=== PATIENT | female | born 1970 | race Caucasian/White ===

== ENCOUNTER 2016-05-08 20:57 | Emergency (ER) | payer MEDICARE, MEDICAID ==
[2016-05-08] MEDS ORDERED: METOCLOPRAMIDE INJ 10MG/2ML VIAL (J2765) As Ordered ONE (21:45)
[2016-05-08 22:04] LABS: MEAN CORPUSCULAR HEMOGLOBIN 30.7 pg (27.0-33.0); MEAN CORPUSCULAR HGB CONC 33.6 g/dl (32.0-36.5); MEAN CORPUSCULAR VOLUME 91.4 fl (80.0-96.0); RED CELL DISTRIBUTION WIDTH 12.6 % (11.5-14.5)
[2016-05-08 22:25] LABS: ANION GAP 5 MEQ/L (8-16); BLOOD UREA NITROGEN 8 MG/DL (7-18); CALCIUM LEVEL 8.5 MG/DL (8.5-10.1); CARBON DIOXIDE LEVEL 30 MEQ/L (21-32); CHLORIDE LEVEL 109 MEQ/L (98-107); CREATININE FOR GFR 0.73 MG/DL (0.55-1.02); GLOMERULAR FILTRATION RATE > 60.0 (>58); GLUCOSE, FASTING 100 MG/DL (70-105); POTASSIUM SERUM 3.6 MEQ/L (3.5-5.1); SODIUM LEVEL 144 MEQ/L (136-145)
--- NOTE | 2016-05-08 23:00 | REPUSA ---
CT of the head Clinical history: Headache. Technique: Multiple axial CT images were obtained through the head without administration of contrast . Findings: The ventricles and sulci are symmetric bilaterally. There is no evidence of acute hemorrhag e or infarct. There is no midline shift, mass effect, or extra-axial fluid collection. Occipital cran iotomy changes are noted. The other osseous structures are unremarkable. The visualized paranasal sin uses and mastoid air cells are clear. Impression: No acute intracranial abnormality.
--- NOTE | 2016-05-08 23:31 | EDDOCDS ---
Nurse's Notes [facility] Name: Lizette Calderon Age: 45 yrs Sex: Female : 1970 Arrival Date: 05/08/2016 Time: 20:57 Bed 7 Private MD: Diagnosis: Malaise and fatigue;Headache Presentation: 05/08 21:00 Presenting complaint: Presenting complaint: EMS states: Pt to ED by EMS for evaluation mv5 of general illness and MOJ[place], onset today. [facility] 116 by EMS. Pt is photophobic on arrival, has no other distinct complaints. 21:03 Adult Sepsis Screening: The patient does not have new or worsening altered mentation. mv5 Patient's respiratory rate is less than 22. Systolic blood pressure is greater than 100. Patient has a qSOFA score of 0- Negative Sepsis Screen. Suicide/Homicide risk assessment- the patient denies having any suicidal and/or homicidal ideations and does not present with any other emotional, behavioral or mental health complaints. Status: Patient is not a food service tray attendant or dependent. Transition of care: patient was not received from another setting of care. 21:03 Acuity: FRANNIE Level 4 mv5 21:03 Acuity: FRANNIE Level 4 mv5 21:03 Method Of Arrival: Ambulance mv5 Triage Assessment: 21:10 General: Appears uncomfortable, Behavior is cooperative. Pain: Location: occipital area mv5 Pain currently is 3 out of 10 on a pain scale. Pt Declines HIV testing. The patient is triaged at the bedside. See Assessment in Nurses Notes section of ED record. Neurological: Level of Consciousness is awake, alert, Oriented to person, place, time. Cardiovascular: Capillary refill < 3 seconds Heart tones S1 S2 present Pulses are all present. Rhythm is regular. Respiratory: Airway is patent Respiratory effort is even, unlabored, Respiratory pattern is regular, symmetrical, Breath sounds are clear bilaterally. GI: No deficits noted. : No deficits noted. Derm: Skin is pink, warm & dry. GIFTED TEACHER: 21:10 LMP N/A - Post-menopause mv5 Historical: - Allergies: Accuprilracing heart; - Home Meds: 1. Lantus 100 unit/mL Sub-Q crtg twice a day 2. Humalog 100 unit/mL Sub-Q soln four times a day sliding scale - PMHx: Diabetes - IDDM: controlled; Migraine Headaches; Cancer, Brain; - PSHx: tumor resection, brain; - Social history: Smoking status: Patient states was never smoker of tobacco. No barriers to communication noted, The patient speaks fluent [place]. - Family history: Mother has/had hypertension, Father has/had hypertension, Maternal Grandmother has/had cancer. - : The pt / caregiver states he / she is not on anticoagulants. Home medication list is obtained from the patient. - Exposure Risk Screening:: None identified. Screenin:16 Screening information is obtained from the patient. Fall risk: No risks identified. mv5 Assistance ADL's: requires no assistance with activities of daily living. Abuse/DV Screen: The patient / caregiver reports he/she is: not in a situation that causes fear, pain or injury. Nutritional screening: No deficits noted. Advance Directives: There is no active DNR order. home support is adequate. Assessment: 21:15 General: See triage assessment. mv5 21:59 General: Appears uncomfortable, Behavior is cooperative, Pt resting with eyes closed mv5 and head covered to protect from light.. Pain: Location: occipital area Pain currently is 3 out of 10 on a pain scale. Neurological: Level of Consciousness is awake, alert, Oriented to person, place. Cardiovascular:. Respiratory: Airway is patent Respiratory effort is even, unlabored, Respiratory pattern is regular, symmetrical. Derm: Skin is pink, warm & dry. 22:13 General: Patient with complaint that "my sugar feels low". Blood glucose checked and cf2 99. Patient states "that is low for me, I am normally the lowest at 150". PA made aware and patient was given juice . 22:40 General: Appears in no apparent distress, Pt to CT and returned without incident.. mv5 23:21 General: Appears in no apparent distress, comfortable, Behavior is cooperative, Family mv5 at bedside. PARTS IDENTIFICATION TECHNICIAN at bedside to discuss findings. D/C pending.. Pain: Denies pain. Neurological: Level of Consciousness is awake, alert, Oriented to person, place, time. Respiratory: Airway is patent Respiratory effort is even, unlabored, Respiratory pattern is regular, symmetrical. Derm: Skin is pink, warm & dry. Vital Signs: 21:10 BP 149 / 77; Pulse 86; Resp 18; Temp 97.4(T); Pulse Ox 96% on R/A; Weight 89.81 kg (R); [facility] Height 5 ft. 5 in. (165.10 cm) (R); Pain 3/10; 21:59 BP 150 / 83; Pulse 78; Resp 16; Pulse Ox 100% on R/A; mv5 23:22 BP 150 / 76; Pulse 90; Resp 18; Temp 97.9(T); Pulse Ox 98% ; mv5 21:10 Body Mass Index 32.95 (89.81 kg, 165.10 cm) [facility] Vitals: 21:10 Log In Time N/A - ambulance arrival. mv5 ED Course: 20:58 Patient visited by Reanna Foster, Cytogenetic Technician. [facility] 20:58 Sharon Hess,RN is Primary Nurse. [facility] 20:58 Patient moved to 13 [facility] 20:58 Patient moved to 7 [facility] 21:05 Triage Initiated 5 21:12 Pt greeted and oriented to ED. Patient advised of names of staff involved in care, [facility] location of call [place], wait times and NPO status. Patient has correct armband on for positive identification. Placed in gown. Bed in low position. Call light in reach. Side rails up X2. 21:13 Patient visited by Torsten Odom PCA. [facility] 21:16 The patient / caregiver is instructed regarding the plan of care and ED course. mv5 21:24 Spencer Estes FNP is PHCP. ke 21:24 Patient visited by Spencer Estes FNP. ke 21:24 Patient visited by Spencer Estes FNP. ke 21:54 Patient visited by Spencer Estes FNP. ke 21:55 Inserted saline lock: 20 gauge in left antecubital area and blood collected. The mv5 patient tolerated the procedure well. 21:59 -Influenza A&B Rapid Antigen - Nose Sent. mv5 21:59 BMP Sent. mv5 21:59 CBC Sent. mv5 22:27 Patient visited by Spencer Estes FNP. ke 23:03 Patient visited by Spencer Estes FNP. ke 23:05 [facility] Payment Agreement was scanned into [employer] and attached to record. gjb 23:22 CT Head Without Contrast Returned. EDMS 23:29 Discontinued intact, bleeding controlled, pressure dressing applied, No mv5 redness/swelling at site. No procedures done that require assistance. Administered Medications: 21:58 Drug: Metoclopramide 10 mg [metoclopramide 5 mg/mL injection solution] Route: IV; Rate: mv5 40 mg/hr; Infused Over: 15 mins; Site: left antecubital; 21:59 Drug: NS 0.9% 1000 ml [sodium chloride 0.9 % intravenous solution] Route: IV; Rate: mv5 bolus; Site: left antecubital; Order Results: Lab Order: CBC; SPEC'05/08/16 21:43 Test: WHITE BLOOD COUNT; Value: 5.0; Range: 4.0-10.0; Units: K/mm3; Status: F Test: RED BLOOD COUNT; Value: 4.56; Range: 4.00-5.40; Units: M/mm3; Status: F Test: HEMOGLOBIN; Value: 14.0; Range: 12.0-16.0; Units: g/dl; Status: F Test: HEMATOCRIT; Value: 41.7; Range: 36.0-47.0; Units: %; Status: F Test: MEAN CORPUSCULAR VOLUME; Value: 91.4; Range: 80.0-96.0; Units: fl; Status: F Test: MEAN CORPUSCULAR HEMOGLOBIN; Value: 30.7; Range: 27.0-33.0; Units: pg; Status: F Test: MEAN CORPUSCULAR HGB CONC; Value: 33.6; Range: 32.0-36.5; Units: g/dl; Status: F Test: RED CELL DISTRIBUTION WIDTH; Value: 12.6; Range: 11.5-14.5; Units: %; Status: F Test: PLATELET COUNT, AUTOMATED; Value: 238; Range: 150-450; Units: k/mm3; Status: F Lab Order: BMP; SPEC05/08/16 21:43 Test: GLUCOSE, FASTING; Value: 100; Range: 70-105; Units: MG/DL; Status: F Test: BLOOD UREA NITROGEN; Value: 8; Range: 7-18; Units: MG/DL; Status: F Test: CREATININE FOR GFR; Value: 0.73; Range: 0.55-1.02; Units: MG/DL; Status: F Test: GLOMERULAR FILTRATION RATE; Value: > 60.0; Range: >58; Status: F Test: SODIUM LEVEL; Value: 144; Range: 136-145; Units: MEQ/L; Status: F Test: POTASSIUM SERUM; Value: 3.6; Range: 3.5-5.1; Units: MEQ/L; Status: F Test: CHLORIDE LEVEL; Value: 109; Range: 98-107; Abnormal: Above high normal; Units: MEQ/L; Status: F Test: CARBON DIOXIDE LEVEL; Value: 30; Range: 21-32; Units: MEQ/L; Status: F Test: ANION GAP; Value: 5; Range: 8-16; Abnormal: Below low normal; Units: MEQ/L; Status: F Test: CALCIUM LEVEL; Value: 8.5; Range: 8.5-10.1; Units: MG/DL; Status: F Test Note: ; Units are mL/min/1.73 m2 Chronic Kidney Disease Staging per NKF: Stage I & II GFR >=60 Normal to Mildly Decreased Stage III GFR 30-59 Moderately Decreased Stage IV GFR 15-29 Severely Decreased Stage V GFR <15 Very Little GFR Left ESRD GFR <15 on TOURIST INFORMATION ASSISTANT Lab Order: -Influenza A&B Rapid Antigen - Nose; SPEC'M 05/08/16 21:43 Test: INFLUENZA A RAPID SCR by ICA; Value: INFLUENZA A RESULTS NEGATIVE; Status: F Test: INFLUENZA A RAPID SCR by ICA; Value: Comments:; Status: F Test: INFLUENZA B RAPID SCR by ICA; Value: INFLUENZA B RESULTS NEGATIVE; Status: F Test Note: ; The Influenza test is a direct rapid immunoassay for the qualitative detection of Influenza viral antigen. Cell culture (Viral Culture) testing should be considered to confirm NEGATIVE results and to assist in detecting other viruses that can provide similar clinical symptoms. Please contact the lab within 24 hours ([phone]) if confirmatory testing is desired. Lab Order: Fingerstick Blood Sugar; SPEC'M 05/08/16 22:10 Test: BEDSIDE GLUCOSE; Value: 99; Range: 70-105; Units: MG/DL; Status: F Radiology Order: CT Head Without Contrast Test: CT Head Without Contrast REASON FOR EXAMINATION: mojica; ; CT of the head; Clinical history: Headache.; Technique: Multiple axial CT images were obtained through the head without administration of contrast; .; Findings: The ventricles and sulci are symmetric bilaterally. There is no evidence of acute hemorrhag; e or infarct. There is no midline shift, mass effect, or extra-axial fluid collection. Occipital cran; iotomy changes are noted. The other osseous structures are unremarkable. The visualized paranasal sin; uses and mastoid air cells are clear.; Impression: No acute intracranial abnormality.; ; Outcome: 23:23 Discharge ordered by Provider. edward 23:29 Discharge Assessment: Patient awake, alert and oriented x 3. No cognitive and/or mv5 functional deficits noted. Patient verbalized understanding of disposition instructions. patient administered narcotics - no. The following High Risk Discharge criteria are identified: None. Condition: stable. Discharge instructions given to patient, family, Demonstrated understanding of Pt was receptive of discharge instructions/ teaching. CT Study completed. Property sent home with patient. 23:30 Patient left the ED. mv5 Signatures: Dispatcher [employer] EDMS Spencer Estes, GLOBAL ENGINEERING MANAGER GLOBAL ENGINEERING MANAGERReanna Machuca, Cytogenetic Technician Unit Lisa Melton Christina,RN RN cf2 Torsten Odom, BUS ESCORT BUS ESCORT Sharon Iverson,RN RN mv5 Corrections: (The following items were deleted from the chart) 21:05 21:00 Presenting complaint: mv5 mv5 23:22 21:59 Neurological: Level of Consciousness is awake, alert, confused, Oriented to mv5 person, place, mv5 MTDD
--- NOTE | 2016-05-08 23:31 | EDDOCDS ---
Physician Documentation [facility] Name: Lizette Calderon Age: 45 yrs Sex: Female : 1970 Arrival Date: 05/08/2016 Time: 20:57 Bed 7 Private MD: Disposition: 05/08/16 23:23 Discharged to Home/Self Care. Impression: Malaise and fatigue, Headache. - Condition is Stable. - Discharge Instructions: General Headache Without Cause, Weakness, Fatigue. - Medication Reconciliation, Local Pharmacy Hours form. - Follow up: Private Physician; When: 2 - 3 days; Reason: Recheck today's complaints, Continuance of care. - Problem is an acute exacerbation. - Symptoms have improved. Historical: - Allergies: Accuprilracing heart; - Home Meds: 1. Lantus 100 unit/mL Sub-Q crtg twice a day 2. Humalog 100 unit/mL Sub-Q soln four times a day sliding scale - PMHx: Diabetes - IDDM: controlled; Migraine Headaches; Cancer, Brain; - PSHx: tumor resection, brain; - Social history: Smoking status: Patient states was never smoker of tobacco. No barriers to communication noted, The patient speaks fluent [place]. - Family history: Mother has/had hypertension, Father has/had hypertension, Maternal Grandmother has/had cancer. - : The pt / caregiver states he / she is not on anticoagulants. Home medication list is obtained from the patient. - Exposure Risk Screening:: None identified. PROCESS ARCHITECT: 05/08 21:10 LMP N/A - Post-menopause mv5 Vital Signs: 21:10 BP 149 / 77; Pulse 86; Resp 18; Temp 97.4(T); Pulse Ox 96% on R/A; Weight 89.81 kg / jmv 198 lbs (R); Height 5 ft. 5 in. (165.10 cm) (R); Pain 3/10; 21:59 BP 150 / 83; Pulse 78; Resp 16; Pulse Ox 100% on R/A; mv5 23:22 BP 150 / 76; Pulse 90; Resp 18; Temp 97.9(T); Pulse Ox 98% ; mv5 21:10 Body Mass Index 32.95 (89.81 kg, 165.10 cm) jm MDM: 21:29 Obtain sample by nasopharyngeal swab ordered. ke 21:29 IV Saline Lock ordered. ke 21:29 NS 0.9% 1000 ml IV at bolus once ordered. ke 21:29 Metoclopramide 10 mg IV at 40 mg/hr once over 15 mins ordered. ke 21:30 CBC Ordered. EDMS 21:31 BMP Ordered. EDMS 21:31 -Influenza A&B Rapid Antigen - Nose Ordered. EDMS 21:31 CT Head Without Contrast Ordered. EDMS 22:19 Fingerstick Blood Sugar Ordered. EDMS 22:30 BMP Reviewed. ke 22:30 CBC Reviewed. ke 22:30 -Influenza A&B Rapid Antigen - Nose Reviewed. ke 22:30 Fingerstick Blood Sugar Reviewed. ke 23:02 Financial registration complete. richard 23:05 [facility] Payment Agreement was scanned into [employer] and attached to record. richard Administered Medications: 21:58 Drug: Metoclopramide 10 mg [metoclopramide 5 mg/mL injection solution] Route: IV; Rate: mv5 40 mg/hr; Infused Over: 15 mins; Site: left antecubital; 21:59 Drug: NS 0.9% 1000 ml [sodium chloride 0.9 % intravenous solution] Route: IV; Rate: mv5 bolus; Site: left antecubital; Signatures: Dispatcher [employer] Spencer Walker, Lisa Evangelista Megan,RN RN mv5 The chart was reviewed and I authenticate all verbal orders and agree with the evaluation and treatment provided.Attachments: 23:05 [facility] Payment Agreement richard MTDD
--- NOTE | 2016-05-11 00:32 | EDDOCDS ---
Physician Documentation [facility] Name: Lizette Calderon Age: 45 yrs Sex: Female : 1970 Arrival Date: 05/08/2016 Time: 20:57 Bed 7 Private MD: Disposition: 05/08/16 23:23 Discharged to Home/Self Care. Impression: Malaise and fatigue, Headache. - Condition is Stable. - Discharge Instructions: General Headache Without Cause, Weakness, Fatigue. - Medication Reconciliation, Local Pharmacy Hours form. - Follow up: Private Physician; When: 2 - 3 days; Reason: Recheck today's complaints, Continuance of care. - Problem is an acute exacerbation. - Symptoms have improved. Historical: - Allergies: Accuprilracing heart; - Home Meds: 1. Lantus 100 unit/mL Sub-Q crtg twice a day 2. Humalog 100 unit/mL Sub-Q soln four times a day sliding scale - PMHx: Diabetes - IDDM: controlled; Migraine Headaches; Cancer, Brain; - PSHx: tumor resection, brain; - Social history: Smoking status: Patient states was never smoker of tobacco. No barriers to communication noted, The patient speaks fluent Vietnamese. - Family history: Mother has/had hypertension, Father has/had hypertension, Maternal Grandmother has/had cancer. - : The pt / caregiver states he / she is not on anticoagulants. Home medication list is obtained from the patient. - Exposure Risk Screening:: None identified. METER TESTER PRIMARY: 05/08 21:10 LMP N/A - Post-menopause mv5 Vital Signs: 21:10 BP 149 / 77; Pulse 86; Resp 18; Temp 97.4(T); Pulse Ox 96% on R/A; Weight 89.81 kg / jmv 198 lbs (R); Height 5 ft. 5 in. (165.10 cm) (R); Pain 3/10; 21:59 BP 150 / 83; Pulse 78; Resp 16; Pulse Ox 100% on R/A; mv5 23:22 BP 150 / 76; Pulse 90; Resp 18; Temp 97.9(T); Pulse Ox 98% ; mv5 21:10 Body Mass Index 32.95 (89.81 kg, 165.10 cm) jm MDM: 21:29 Obtain sample by nasopharyngeal swab ordered. ke 21:29 IV Saline Lock ordered. ke 21:29 NS 0.9% 1000 ml IV at bolus once ordered. ke 21:29 Metoclopramide 10 mg IV at 40 mg/hr once over 15 mins ordered. ke 21:30 CBC Ordered. EDMS 21:31 BMP Ordered. EDMS 21:31 -Influenza A&B Rapid Antigen - Nose Ordered. EDMS 21:31 CT Head Without Contrast Ordered. EDMS 22:19 Fingerstick Blood Sugar Ordered. EDMS 22:30 BMP Reviewed. ke 22:30 CBC Reviewed. ke 22:30 -Influenza A&B Rapid Antigen - Nose Reviewed. ke 22:30 Fingerstick Blood Sugar Reviewed. ke 23:02 Financial registration complete. banner : [facility] Payment Agreement was scanned into [employer] and attached to record. banner 05/09 10:23 T-Sheet-- Draft Copy was scanned into [employer] and attached to record. gb 16:37 Radiology Report was scanned into [employer] and attached to record. gb 16:37 PCR was scanned into [employer] and attached to record. gb 17:36 PCR was scanned into [employer] and attached to record. gb Administered Medications: 05/08 21:58 Drug: Metoclopramide 10 mg [metoclopramide 5 mg/mL injection solution] Route: IV; Rate: mv5 40 mg/hr; Infused Over: 15 mins; Site: left antecubital; 22:15 Follow up: IV Status: Completed infusion mv5 21:59 Drug: NS 0.9% 1000 ml [sodium chloride 0.9 % intravenous solution] Route: IV; Rate: mv5 bolus; Site: left antecubital; 23:31 Follow up: IV Status: Completed infusion mv5 Signatures: Dispatcher [employer] EDMS Ashtyn Rodney, Spencer Dhillon, NEUROLOGIST Lisa Clark b Sharon Hess,RN RN mv5 The chart was reviewed and I authenticate all verbal orders and agree with the evaluation and treatment provided.Attachments: :05 [facility] Payment Agreement banner 05/09 10:23 T-Sheet-- Draft Copy gb Chart Complete MTDD
--- NOTE | 2016-05-11 00:32 | EDDOCDS ---
Physician Documentation [facility] Name: Lizette Calderon Age: 45 yrs Sex: Female : 1970 Arrival Date: 05/08/2016 Time: 20:57 Bed 7 Private MD: Disposition: 05/08/16 23:23 Discharged to Home/Self Care. Impression: Malaise and fatigue, Headache. - Condition is Stable. - Discharge Instructions: General Headache Without Cause, Weakness, Fatigue. - Medication Reconciliation, Local Pharmacy Hours form. - Follow up: Private Physician; When: 2 - 3 days; Reason: Recheck today's complaints, Continuance of care. - Problem is an acute exacerbation. - Symptoms have improved. Historical: - Allergies: Accuprilracing heart; - Home Meds: 1. Lantus 100 unit/mL Sub-Q crtg twice a day 2. Humalog 100 unit/mL Sub-Q soln four times a day sliding scale - PMHx: Diabetes - IDDM: controlled; Migraine Headaches; Cancer, Brain; - PSHx: tumor resection, brain; - Social history: Smoking status: Patient states was never smoker of tobacco. No barriers to communication noted, The patient speaks fluent [place]ralt[place]. - Family history: Mother has/had hypertension, Father has/had hypertension, Maternal Grandmother has/had cancer. - : The pt / caregiver states he / she is not on anticoagulants. Home medication list is obtained from the patient. - Exposure Risk Screening:: None identified. BLUE LEATHER SORTER: 05/08 21:10 LMP N/A - Post-menopause mv5 Vital Signs: 21:10 BP 149 / 77; Pulse 86; Resp 18; Temp 97.4(T); Pulse Ox 96% on R/A; Weight 89.81 kg / jmv 198 lbs (R); Height 5 ft. 5 in. (165.10 cm) (R); Pain 3/10; 21:59 BP 150 / 83; Pulse 78; Resp 16; Pulse Ox 100% on R/A; mv5 23:22 BP 150 / 76; Pulse 90; Resp 18; Temp 97.9(T); Pulse Ox 98% ; mv5 21:10 Body Mass Index 32.95 (89.81 kg, 165.10 cm) jm MDM: 21:29 Obtain sample by nasopharyngeal swab ordered. ke 21:29 IV Saline Lock ordered. ke 21:29 NS 0.9% 1000 ml IV at bolus once ordered. ke 21:29 Metoclopramide 10 mg IV at 40 mg/hr once over 15 mins ordered. ke 21:30 CBC Ordered. EDMS 21:31 BMP Ordered. EDMS 21:31 -Influenza A&B Rapid Antigen - Nose Ordered. EDMS 21:31 CT Head Without Contrast Ordered. EDMS 22:19 Fingerstick Blood Sugar Ordered. EDMS 22:30 BMP Reviewed. ke 22:30 CBC Reviewed. ke 22:30 -Influenza A&B Rapid Antigen - Nose Reviewed. ke 22:30 Fingerstick Blood Sugar Reviewed. ke 23:02 Financial registration complete. [facility] : [facility] Payment Agreement was scanned into [employer] and attached to record. [facility] 05/09 10:23 T-Sheet-- Draft Copy was scanned into [employer] and attached to record. gb 16:37 Radiology Report was scanned into [employer] and attached to record. gb 16:37 PCR was scanned into [employer] and attached to record. gb 17:36 PCR was scanned into [employer] and attached to record. gb Administered Medications: 05/08 21:58 Drug: Metoclopramide 10 mg [metoclopramide 5 mg/mL injection solution] Route: IV; Rate: mv5 40 mg/hr; Infused Over: 15 mins; Site: left antecubital; 22:15 Follow up: IV Status: Completed infusion mv5 21:59 Drug: NS 0.9% 1000 ml [sodium chloride 0.9 % intravenous solution] Route: IV; Rate: mv5 bolus; Site: left antecubital; 23:31 Follow up: IV Status: Completed infusion mv5 Signatures: Dispatcher [employer] EDMS Ashtyn Rodney, Spencer Dhillon, [employer] Lisa Clark b Sharon Hess,RN RN mv5 The chart was reviewed and I authenticate all verbal orders and agree with the evaluation and treatment provided.Attachments: :05 [facility] Payment Agreement [facility] 05/09 10:23 T-Sheet-- Draft Copy gb Chart Complete MTDD
--- NOTE | 2016-05-11 00:32 | EDDOCDS ---
Nurse's Notes [facility] Name: Lizette Calderon Age: 45 yrs Sex: Female : 1970 Arrival Date: 05/08/2016 Time: 20:57 Bed 7 Private MD: Diagnosis: Malaise and fatigue;Headache Presentation: 05/08 21:00 Presenting complaint: Presenting complaint: EMS states: Pt to ED by EMS for evaluation mv5 of general illness and [place], onset today. [facility] 116 by EMS. Pt is photophobic on arrival, has no other distinct complaints. 21:03 Adult Sepsis Screening: The patient does not have new or worsening altered mentation. mv5 Patient's respiratory rate is less than 22. Systolic blood pressure is greater than 100. Patient has a qSOFA score of 0- Negative Sepsis Screen. Suicide/Homicide risk assessment- the patient denies having any suicidal and/or homicidal ideations and does not present with any other emotional, behavioral or mental health complaints. Status: Patient is not a line service supervisor or dependent. Transition of care: patient was not received from another setting of care. 21:03 Acuity: FRANNIE Level 4 mv5 21:03 Acuity: FRANNIE Level 4 mv5 21:03 Method Of Arrival: Ambulance mv5 Triage Assessment: 21:10 General: Appears uncomfortable, Behavior is cooperative. Pain: Location: occipital area mv5 Pain currently is 3 out of 10 on a pain scale. Pt Declines HIV testing. The patient is triaged at the bedside. See Assessment in Nurses Notes section of ED record. Neurological: Level of Consciousness is awake, alert, Oriented to person, place, time. Cardiovascular: Capillary refill < 3 seconds Heart tones S1 S2 present Pulses are all present. Rhythm is regular. Respiratory: Airway is patent Respiratory effort is even, unlabored, Respiratory pattern is regular, symmetrical, Breath sounds are clear bilaterally. GI: No deficits noted. : No deficits noted. Derm: Skin is pink, warm & dry. 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 Lantus 100 unit/mL Sub-Q crtg twice a day 2. Humalog 100 unit/mL Sub-Q soln four times a day sliding scale - PMHx: Diabetes - IDDM: controlled; Migraine Headaches; Cancer, Brain; - PSHx: tumor resection, brain; - Social history: Smoking status: Patient states was never smoker of tobacco. No barriers to communication noted, The patient speaks fluent Indian. - Family history: Mother has/had hypertension, Father has/had hypertension, Maternal Grandmother has/had cancer. - : The pt / caregiver states he / she is not on anticoagulants. Home medication list is obtained from the patient. - Exposure Risk Screening:: None identified. Screenin:16 Screening information is obtained from the patient. Fall risk: No risks identified. mv5 Assistance ADL's: requires no assistance with activities of daily living. Abuse/DV Screen: The patient / caregiver reports he/she is: not in a situation that causes fear, pain or injury. Nutritional screening: No deficits noted. Advance Directives: There is no active DNR order. home support is adequate. Assessment: 21:15 General: See triage assessment. mv5 21:59 General: Appears uncomfortable, Behavior is cooperative, Pt resting with eyes closed mv5 and head covered to protect from light.. Pain: Location: occipital area Pain currently is 3 out of 10 on a pain scale. Neurological: Level of Consciousness is awake, alert, Oriented to person, place. Cardiovascular:. Respiratory: Airway is patent Respiratory effort is even, unlabored, Respiratory pattern is regular, symmetrical. Derm: Skin is pink, warm & dry. 22:13 General: Patient with complaint that "my sugar feels low". Blood glucose checked and cf2 99. Patient states "that is low for me, I am normally the lowest at 150". PA made aware and patient was given juice . 22:40 General: Appears in no apparent distress, Pt to CT and returned without incident.. mv5 23:21 General: Appears in no apparent distress, comfortable, Behavior is cooperative, Family mv5 at bedside. PRODUCT SPECIALIST at bedside to discuss findings. D/C pending.. Pain: Denies pain. Neurological: Level of Consciousness is awake, alert, Oriented to person, place, time. Respiratory: Airway is patent Respiratory effort is even, unlabored, Respiratory pattern is regular, symmetrical. Derm: Skin is pink, warm & dry. Vital Signs: 21:10 BP 149 / 77; Pulse 86; Resp 18; Temp 97.4(T); Pulse Ox 96% on R/A; Weight 89.81 kg (R); [facility] Height 5 ft. 5 in. (165.10 cm) (R); Pain 3/10; 21:59 BP 150 / 83; Pulse 78; Resp 16; Pulse Ox 100% on R/A; mv5 23:22 BP 150 / 76; Pulse 90; Resp 18; Temp 97.9(T); Pulse Ox 98% ; mv5 21:10 Body Mass Index 32.95 (89.81 kg, 165.10 cm) [facility] Vitals: 21:10 Log In Time N/A - ambulance arrival. mv5 ED Course: 20:58 Patient visited by Reanna Foster, [employer]. [facility] 20:58 Sharon Hess,RN is Primary Nurse. [facility] 20:58 Patient moved to 13 [facility] 20:58 Patient moved to 7 [facility] 21:05 Triage Initiated 5 21:12 Pt greeted and oriented to ED. Patient advised of names of staff involved in care, [facility] location of call [place], wait times and NPO status. Patient has correct armband on for positive identification. Placed in gown. Bed in low position. Call light in reach. Side rails up X2. 21:13 Patient visited by Torsten Odom PCA. [facility] 21:16 The patient / caregiver is instructed regarding the plan of care and ED course. mv5 21:24 Spencer Estes FNP is PHCP. ke 21:24 Patient visited by Spencer Estes FNP. ke 21:24 Patient visited by Spencer Estes FNP. ke 21:54 Patient visited by Spencer Estes FNP. ke 21:55 Inserted saline lock: 20 gauge in left antecubital area and blood collected. The mv5 patient tolerated the procedure well. 21:59 -Influenza A&B Rapid Antigen - Nose Sent. mv5 21:59 BMP Sent. mv5 21:59 CBC Sent. mv5 22:27 Patient visited by Spencer Estes FNP. ke 23:03 Patient visited by Spencer Estes FNP. ke 23:05 [facility] Payment Agreement was scanned into ReviewZAP and attached to record. gjb 23:22 CT Head Without Contrast Returned. EDMS 23:29 Discontinued intact, bleeding controlled, pressure dressing applied, No mv5 redness/swelling at site. No procedures done that require assistance. 05/09 10:23 T-Sheet-- Draft Copy was scanned into ReviewZAP and attached to record. gb 16:37 Radiology Report was scanned into ReviewZ[employer] and attached to record. gb 16:37 PCR was scanned into Review[employer] and attached to record. gb 17:36 PCR was scanned into Review[employer] and attached to record. gb Administered Medications: 05/08 21:58 Drug: Metoclopramide 10 mg [metoclopramide 5 mg/mL injection solution] Route: IV; Rate: mv5 40 mg/hr; Infused Over: 15 mins; Site: left antecubital; 22:15 Follow up: IV Status: Completed infusion mv5 21:59 Drug: NS 0.9% 1000 ml [sodium chloride 0.9 % intravenous solution] Route: IV; Rate: mv5 bolus; Site: left antecubital; 23:31 Follow up: IV Status: Completed infusion mv5 Order Results: Lab Order: CBC; SPEC'M 05/08/16 21:43 Test: WHITE BLOOD COUNT; Value: 5.0; Range: 4.0-10.0; Units: K/mm3; Status: F Test: RED BLOOD COUNT; Value: 4.56; Range: 4.00-5.40; Units: M/mm3; Status: F Test: HEMOGLOBIN; Value: 14.0; Range: 12.0-16.0; Units: g/dl; Status: F Test: HEMATOCRIT; Value: 41.7; Range: 36.0-47.0; Units: %; Status: F Test: MEAN CORPUSCULAR VOLUME; Value: 91.4; Range: 80.0-96.0; Units: fl; Status: F Test: MEAN CORPUSCULAR HEMOGLOBIN; Value: 30.7; Range: 27.0-33.0; Units: pg; Status: F Test: MEAN CORPUSCULAR HGB CONC; Value: 33.6; Range: 32.0-36.5; Units: g/dl; Status: F Test: RED CELL DISTRIBUTION WIDTH; Value: 12.6; Range: 11.5-14.5; Units: %; Status: F Test: PLATELET COUNT, AUTOMATED; Value: 238; Range: 150-450; Units: k/mm3; Status: F Lab Order: BMP; SPEC'M 05/08/16 21:43 Test: GLUCOSE, FASTING; Value: 100; Range: 70-105; Units: MG/DL; Status: F Test: BLOOD UREA NITROGEN; Value: 8; Range: 7-18; Units: MG/DL; Status: F Test: CREATININE FOR GFR; Value: 0.73; Range: 0.55-1.02; Units: MG/DL; Status: F Test: GLOMERULAR FILTRATION RATE; Value: > 60.0; Range: >58; Status: F Test: SODIUM LEVEL; Value: 144; Range: 136-145; Units: MEQ/L; Status: F Test: POTASSIUM SERUM; Value: 3.6; Range: 3.5-5.1; Units: MEQ/L; Status: F Test: CHLORIDE LEVEL; Value: 109; Range: 98-107; Abnormal: Above high normal; Units: MEQ/L; Status: F Test: CARBON DIOXIDE LEVEL; Value: 30; Range: 21-32; Units: MEQ/L; Status: F Test: ANION GAP; Value: 5; Range: 8-16; Abnormal: Below low normal; Units: MEQ/L; Status: F Test: CALCIUM LEVEL; Value: 8.5; Range: 8.5-10.1; Units: MG/DL; Status: F Test Note: ; Units are mL/min/1.73 m2 Chronic Kidney Disease Staging per NKF: Stage I & II GFR >=60 Normal to Mildly Decreased Stage III GFR 30-59 Moderately Decreased Stage IV GFR 15-29 Severely Decreased Stage V GFR <15 Very Little GFR Left ESRD GFR <15 on WELT WHEELER Lab Order: -Influenza A&B Rapid Antigen - Nose; SPEC'M 05/08/16 21:43 Test: INFLUENZA A RAPID SCR by ICA; Value: INFLUENZA A RESULTS NEGATIVE; Status: F Test: INFLUENZA A RAPID SCR by ICA; Value: Comments:; Status: F Test: INFLUENZA B RAPID SCR by ICA; Value: INFLUENZA B RESULTS NEGATIVE; Status: F Test Note: ; The Influenza test is a direct rapid immunoassay for the qualitative detection of Influenza viral antigen. Cell culture (Viral Culture) testing should be considered to confirm NEGATIVE results and to assist in detecting other viruses that can provide similar clinical symptoms. Please contact the lab within 24 hours ([phone]) if confirmatory testing is desired. Lab Order: Fingerstick Blood Sugar; SPEC'M 05/08/16 22:10 Test: BEDSIDE GLUCOSE; Value: 99; Range: 70-105; Units: MG/DL; Status: F Radiology Order: CT Head Without Contrast Test: CT Head Without Contrast REASON FOR EXAMINATION: mojica; ; CT of the head; Clinical history: Headache.; Technique: Multiple axial CT images were obtained through the head without administration of contrast; .; Findings: The ventricles and sulci are symmetric bilaterally. There is no evidence of acute hemorrhag; e or infarct. There is no midline shift, mass effect, or extra-axial fluid collection. Occipital cran; iotomy changes are noted. The other osseous structures are unremarkable. The visualized paranasal sin; uses and mastoid air cells are clear.; Impression: No acute intracranial abnormality.; ; Outcome: 23:23 Discharge ordered by Provider. edward 23:29 Discharge Assessment: Patient awake, alert and oriented x 3. No cognitive and/or mv5 functional deficits noted. Patient verbalized understanding of disposition instructions. patient administered narcotics - no. The following High Risk Discharge criteria are identified: None. Condition: stable. Discharge instructions given to patient, family, Demonstrated understanding of Pt was receptive of discharge instructions/ teaching. CT Study completed. Property sent home with patient. 23:30 Patient left the ED. mv5 Signatures: Dispatcher [employer] EDMS Ashtyn Rodney, Spencer Dhillon, VISUAL EDUCATOR VISUAL EDUCATOR Reanna Hollis, [employer] Lisa Melton Christina,RN RN cf2 Torsten Odom, TOURIST HOME KEEPER TOURIST HOME KEEPER Sharon Iverson,RN RN mv5 Corrections: (The following items were deleted from the chart) 21:05 21:00 Presenting complaint: mv5 mv5 23:22 21:59 Neurological: Level of Consciousness is awake, alert, confused, Oriented to mv5 person, place, mv5 Chart Complete MTDD
== END 2016-05-08 23:30 | disposition home or self-care (01) ==
LOC: M ED 20:57
DX: R53.83 Other fatigue (principal); R51 Headache; E10.9 Type 1 diabetes mellitus without complications; Z85.841 Personal history of malignant neoplasm of brain; Z79.4 Long term (current) use of insulin; Z88.8 Allergy status to other drugs, medicaments and biological substances
CPT/HCPCS: 36415; 70450; 80048; 85027; 87804; 96361; 96365; 99284; J2765

== ENCOUNTER 2018-10-30 18:22 | Emergency (ER) | payer MEDICARE, MEDICAID ==
[~2018-10-30] VITALS: Ht 165.1 cm; Wt 95.5 kg
[2018-10-30] MEDS ORDERED: NS 1,000 ML IV SCH (18:33)
[2018-10-30] MEDS ORDERED: BASA100I (18:39)
[2018-10-30] MEDS ORDERED: NOVOINJ3 (18:39)
[2018-10-30 18:59] LABS: BASO % 0.4 % (0.0-1.0); EOS % 0.2 % (0.0-3.0); HEMATOCRIT 43.1 % (36.0-47.0); LYMPH # 1.1 10^3/uL (1.5-4.5); LYMPH % 21.3 % (24.0-44.0); MEAN CORPUSCULAR HEMOGLOBIN 31.4 pg (27.0-33.0); MEAN CORPUSCULAR HGB CONC 34.8 g/dl (32.0-36.5); MEAN CORPUSCULAR VOLUME 90.2 fl (80.0-96.0); MONO # 0.4 10^3/uL (0.0-0.8); MONO % 8.7 % (0.0-5.0); NEUTROPHILS # 3.5 10^3/uL (1.8-7.7); NEUTROPHILS % 69.2 % (36.0-66.0); PLATELET COUNT, AUTOMATED 174 10^3/uL (150-450); RED BLOOD COUNT 4.78 10^6/uL (4.00-5.40)
[2018-10-30 19:25] LABS: ALBUMIN 3.5 GM/DL (3.2-5.2); ALT/SGPT 55 U/L (12-78); BILIRUBIN,DIRECT 0.1 MG/DL (0.0-0.2); BILIRUBIN,TOTAL 0.5 MG/DL (0.2-1.0); BLOOD UREA NITROGEN 11 MG/DL (7-18); CARBON DIOXIDE LEVEL 28 MEQ/L (21-32); CHLORIDE LEVEL 103 MEQ/L (98-107); CREATININE FOR GFR 0.89 MG/DL (0.55-1.30); GLOMERULAR FILTRATION RATE > 60.0 (>58); GLUCOSE, FASTING 275 MG/DL (70-100); LIPASE 76 U/L (73-393); POTASSIUM SERUM 3.7 MEQ/L (3.5-5.1); SODIUM LEVEL 136 MEQ/L (136-145); TOTAL PROTEIN 7.5 GM/DL (6.4-8.2)
[2018-10-30 21:48] VITALS: BP 158/79
== END 2018-10-30 22:01 | disposition home or self-care (01) ==
LOC: M ED 18:22
DX: R19.7 Diarrhea, unspecified (principal); E11.9 Type 2 diabetes mellitus without complications; Z79.4 Long term (current) use of insulin; Z88.8 Allergy status to other drugs, medicaments and biological substances

== ENCOUNTER 2019-09-18 19:17 | Emergency (ER) | payer MEDICARE, MEDICAID ==
[~2019-09-18 19:17] MED LIST: BASA100I; NOVOINJ3
[2019-09-18] MEDS ORDERED: NS 1,000 ML IV ONE (20:15)
[2019-09-18 20:17] LABS: VENOUS BASE EXCESS -0.6 (-2.0-2.0); VENOUS HCO3 26.6 MEQ/L (23.0-27.0); VENOUS O2 SATURATION 73.1 % (60.0-80.0); VENOUS PARTIAL PRESSURE CO2 54.5 mmHg (38.0-50.0); VENOUS PARTIAL PRESSURE O2 41.8 mmHg (30.0-50.0); VENOUS PH 7.307 UNITS (7.330-7.430); VENOUS STANDARD HCO3 23.4 MEQ/L; VENOUS TOTAL CO2 28.3 MEQ/L (24.0-28.0)
[2019-09-18 20:25] LABS: BASO # 0.1 10^3/uL (0.0-0.2); BASO % 0.7 % (0.0-1.0); EOS % 0.4 % (0.0-3.0); HEMATOCRIT 41.5 % (36.0-47.0); HEMOGLOBIN 13.7 g/dl (12.0-15.5); LYMPH # 1.8 10^3/uL (1.5-5.0); LYMPH % 25.8 % (24.0-44.0); MEAN CORPUSCULAR HEMOGLOBIN 30.1 pg (27.0-33.0); MEAN CORPUSCULAR VOLUME 91.2 fl (80.0-96.0); MONO # 0.5 10^3/uL (0.0-0.8); MONO % 7.3 % (0.0-5.0); NEUTROPHILS # 4.5 10^3/uL (1.5-8.5); NEUTROPHILS % 65.4 % (36.0-66.0); PLATELET COUNT, AUTOMATED 220 10^3/uL (150-450); RED BLOOD COUNT 4.55 10^6/uL (4.00-5.40)
[2019-09-18 20:50] LABS: ACETONE/KETONE 1.47 MG/DL (<2.81); BLOOD UREA NITROGEN 10 MG/DL (7-18); CALCIUM LEVEL 8.5 MG/DL (8.5-10.1); CARBON DIOXIDE LEVEL 28 MEQ/L (21-32); CHLORIDE LEVEL 107 MEQ/L (98-107); CREATININE FOR GFR 0.92 MG/DL (0.55-1.30); GLOMERULAR FILTRATION RATE > 60.0 (>58); GLUCOSE, FASTING 251 MG/DL (70-100); SODIUM LEVEL 137 MEQ/L (136-145)
[2019-09-18 20:54] LABS: OSMOLALITY SERUM 299 MOSM/KG (275-295)
[2019-09-18 22:47] VITALS: BP 142/72
== END 2019-09-18 23:04 | disposition home or self-care (01) ==
LOC: M ED 19:17
DX: I95.1 Orthostatic hypotension (principal); E11.9 Type 2 diabetes mellitus without complications; Z79.4 Long term (current) use of insulin; Z88.8 Allergy status to other drugs, medicaments and biological substances; Z85.841 Personal history of malignant neoplasm of brain

== ENCOUNTER 2020-04-24 13:48 | Emergency (ER) | payer MEDICARE, MEDICAID ==
[~2020-04-24] VITALS: Ht 165.1 cm; Wt 92.7 kg
[2020-04-24] MEDS ORDERED: METO1TAB7 PO (14:10)
[2020-04-24] MEDS ORDERED: ASPI-523 PO (14:10)
[2020-04-24] MEDS ORDERED: ATOR80TA59 PO (14:10)
[2020-04-24] MEDS ORDERED: BRIL90TA PO (14:10)
--- NOTE | 2020-04-24 14:55 | ECGEPIP ---
[facility] - ED Test Date: 2020-04-24 Pat Name: CARON CARCAMO Department: Room: - Gender: Female Civil Attorney: katie : 1970 Requested By: FADY RUCKER Order Number: [id number] Reading MD: Katrin Stephens Measurements Intervals [place] Rate: 87 P: 30 GA: 200 QRS: -1 QRSD: 92 T: 32 QT: 376 QTc: 454 Interpretive Statements SINUS RHYTHM PRWP NSTTW abnormalities No prior Electronically Signed on 04-24-2020 14:55:51 EST by Katrin Stephens
[2020-04-24 15:18] LABS: BASO % 0.6 % (0.0-1.0); EOS % 0.3 % (0.0-3.0); HEMATOCRIT 43.5 % (36.0-47.0); LYMPH # 1.2 10^3/uL (1.5-5.0); LYMPH % 17.2 % (24.0-44.0); MEAN CORPUSCULAR HEMOGLOBIN 30.1 pg (27.0-33.0); MEAN CORPUSCULAR HGB CONC 32.2 g/dl (32.0-36.5); MEAN CORPUSCULAR VOLUME 93.5 fl (80.0-96.0); MONO # 0.5 10^3/uL (0.0-0.8); MONO % 7.3 % (0.0-5.0); NEUTROPHILS % 74.2 % (36.0-66.0); PLATELET COUNT, AUTOMATED 244 10^3/uL (150-450); RED BLOOD COUNT 4.65 10^6/uL (4.00-5.40); WHITE BLOOD COUNT 6.7 10^3/uL (4.0-10.0)
[2020-04-24 15:42] LABS: ALT/SGPT 174 U/L (12-78); BLOOD UREA NITROGEN 12 MG/DL (7-18); CALCIUM LEVEL 9.5 MG/DL (8.5-10.1); CARBON DIOXIDE LEVEL 30 MEQ/L (21-32); CHLORIDE LEVEL 106 MEQ/L (98-107); CK-MB VALUE MASS 1.5 NG/ML (<3.6); CPK CREATINE PHOSPHOKINASE 66 U/L (26-192); CREATININE FOR GFR 0.97 MG/DL (0.55-1.30); GLOMERULAR FILTRATION RATE > 60.0 (>58); GLUCOSE, FASTING 233 MG/DL (70-100); MB/CK RELATIVE INDEX 2.27 (< OR =4); POTASSIUM SERUM 4.2 MEQ/L (3.5-5.1); SODIUM LEVEL 143 MEQ/L (136-145)
[2020-04-24 15:43] LABS: ALBUMIN 3.7 GM/DL (3.2-5.2); BILIRUBIN,DIRECT 0.5 MG/DL (0.0-0.2); LIPASE 132 U/L (73-393); TOTAL PROTEIN 7.6 GM/DL (6.4-8.2); TROPONIN I < 0.02 NG/ML (< 0.10)
--- OUTSIDE RECORDS SUMMARY | 2020-04-24 16:00 | CCD | Continuity of Care Document ---
Author Author Lizette LA MD Organization Unknown Address [address], [address] [place] [address] Phone [phone] Care Team Providers Care Pretzel Packer Name Role Phone Felicity Villarreal MD AUT [phone] Problems Active Problems Provider Date Type 2 diabetes mellitus Arnoldo Boyle MD Onset: 12/26/19 20 Ischemic heart disease Arnoldo Boyle MD Onset: 12/26/2019 Social History Type Date Description Comments Sex Unknown Tobacco Use Start: Unknown Never Smoked Cigarettes ETOH Use Occasionally consumes alcohol Tobacco Use Reviewed: 01/29/20 Patient has never sm oked (pipe, cigarette, cigar) Smoking Status Reviewed: 01/29/20 Patient has never sm oked (pipe, cigarette, cigar) Allergies, Adverse Reactions, Alerts Active Allergies Reaction Severity Comments Date Accupril felt like heart was stopping Severe 01/29/2020 Medications Active Medications SIG Qnty Indications Ordering Provide r Date Basaglar Kwikpen 100 Unit/ML Solution Pen-Inject inject 26 units twice a day Arnoldo guillen MD 01/29/2020 Novolog Flexpen 100U nit/ML Solution Pen-Inject sliding scale Arnoldo Boyle MD 01/29/20 20 Brilinta 90mg Tablets take 1 tablet by mouth two times daily 180tabs Arnoldo Boyle MD 020 [address] 1 by mouth every day 90tabs Arnoldo Boyle MD 01/29/2020 Atorvastatin Calcium 80mg Tablets 1 by mouth every day Arnoldo Boyle MD 01/29/2020 Metoprolol Succinate ER 50mg Tablets ER 24HR 1 by mouth every day 90tabs Arnoldo Boyle MD 1 03/30/2019 History Medications 5 Day 20% Liquid Arnoldo Boyle MD 01/29/2020 - 01/29/2020 Immunizations Description No Information Available Vital Signs Date Vital Result Comment 01/29/2020 3:21pm Height 65 inches 5'5" Weight 206.50 lb BMI (Body Mass Index) 34.4 kg/m2 BP Systolic 136 mmHg LA sitting, manual BP Diastolic 72 mmHg LA sitting, manual Heart Rate 80 /min apical, O2 % BldC Oximetry 98 % room air Results Description No Information Available Procedures Date Code Description Status 01/29/2020 81580 Electrocardiogram Complete Compl eted 12/26/2019 86828 Echocardiography, Tranthoracic R eal-Time Image Documentation Completed 12/26/2019 21507 Electrocardiogram Interpretation & Report Only Completed 12/25/2019 47067 Electrocardiogram Interpretation & Report Only Completed 12/25/2019 91711 Coronary Angiography With Left H eart Catheterization Completed 12/25/[address] ment Of Intracoronary Stent Completed Medical Devices Description No Information Available Encounters Type Date Location Provider Dx Diagnosis Office Visit 01/29/2020 2:45p [facility] Cardiology [facility] Arnoldo calhoun MD R07.9 Chest pain, unspecified I21.3 ST elevation (Stemi) myocard ial infarction of [facility] site Z95.5 Presence of coronary angiopl asty implant and graft Office Visit 12/27/2019 4:11a [facility] Cardiology [facility] Arnoldo Boyle MD I21.3 ST elevation (Stemi) myocardial infarction of [facility] site R07.9 Chest pain, unspecified Z95.5 Presence of coronary angiopl asty implant and graft Office Visit 12/26/2019 3:18a [facility] Cardiology [facility] Arnoldo Boyle MD R07.9 Chest pain, unspecified Z95.5 Presence of coronary angiopl asty implant and graft Office Visit 12/25/2019 3:20a [facility] Cardiology [facility] Arnoldo Boyle MD G80.9 Cerebral palsy, unspecified E11.9 Type 2 diabetes mellitus wit hout complications Assessments Date Code Description Provider 01/29/2020 R07.9 Chest pain, unspecified Arnoldo Boyle MD 01/29/[address] elevation (Stemi) myocardial infarction of unspecified site Arnoldo Boyle MD 01/29/2020 Z95.5 Presence of coronary angioplasty implant and graft Arnoldo Boyle MD 12/27/[address] elevation (Stemi) myocardial infarction of unspecified site Arnoldo Boyle MD 12/27/2019 R07.9 Chest pain, unspecified Arnoldo Boyle MD 12/27/2019 Z95.5 Presence of coronary angioplasty implant and graft Arnoldo Boyle MD 12/26/2019 R07.9 Chest pain, unspecified Arnoldo Boyle MD 12/26/2019 Z95.5 Presence of coronary angioplasty implant and graft Arnoldo Boyle MD 12/26/2019 R07.9 Chest pain, unspecified Rah Milligan MD 12/26/2019 I25.10 Athscl heart disease of [place]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 ang pctrs Rah Milligan MD 12/26/2019 E11.9 Type 2 diabetes mellitus without complications Rah Milligan MD 12/26/2019 Z79.4 garde manger (current) use of insul in Rah Milligan MD 12/26/2019 R07.9 Chest pain, unspecified Kale Doe MD 12/26/2019 I25.10 Athscl heart disease of [place]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 ang pctrs Kale Doe MD 12/26/2019 E11.9 Type 2 diabetes mellitus without complications Kale Doe MD 12/26/2019 Z79.4 half-way (current) use of insul in Kale Doe MD 12/25/2019 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 Rah Milligan MD 12/25/2019 G80.9 Cerebral palsy, unspecified Taz Boyle MD 12/25/2019 E11.9 Type 2 diabetes mellitus without complications Rah Milligan MD 12/25/2019 E11.9 Type 2 diabetes mellitus without complications Arnoldo Boyle MD 12/25/2019 Z79.4 garde manger (current) use of insul in Rah Milligan MD 12/25/2019 R07.9 Chest pain, unspecified Sean La MD 12/25/2019 I25.10 Athscl heart disease of [place]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 ang pctakiko La MD 12/25/2019 E11.9 Type 2 diabetes mellitus without complications Sean La MD 12/25/2019 Z79.4 half-way (current) use of insul in Sean MD Abhinav Plan of Treatment Future Appointment(s):* 08/02/2020 2:30 pm - Arnoldo Boyle MD at [facility] Cardiology AT [place] 01/29/2020 - Arnoldo Boyle MD* R07.9 Chest pain, unspecified * I21.3 ST elevation (Stemi) myocardial infarction of unspecified site * Z95.5 Presence of coronary angioplasty implant and graft Functional Status Description No Information Available Mental Status Description No Information Available Referrals Description No Information Available
--- OUTSIDE RECORDS SUMMARY | 2020-04-24 16:01 | CCD | Continuity of Care Document ---
Author Author Lizette ECKERT MD Organization Unknown Address [address] [place] [address] [place] [address] Phone [phone] Care Team Providers Care Knife Grinder Name Role Phone Felicity Villarreal MD AUT [phone] Problems Active Problems Provider Date Type 2 diabetes mellitus Arnoldo Eckert MD Onset: 12/26/19 20 Ischemic heart disease Arnoldo Eckert MD Onset: 12/26/2019 Social History Type Date [...] 100U nit/ML Solution Pen-Inject sliding scale Arnoldo Eckert MD 01/29/20 20 Brilinta 90mg Tablets take 1 tablet by mouth two times daily 180tabs Arnoldo Eckert MD 020 Aspirin [address] 1 by mouth every day 90tabs Arnoldo Eckert MD 01/29/2020 Atorvastatin Calcium 80mg Tablets 1 by mouth every day Arnoldo Eckert MD 01/29/2020 Metoprolol Succinate ER 50mg Tablets ER 24HR 1 by mouth every day 90tabs Arnoldo Eckert MD 1 03/30/2019 History Medications 5 Day 20% Liquid Arnoldo Eckert MD 01/29/2020 - 01/29/2020 Immunizations Description No [...] Available Procedures Date Code Description Status 01/29/2020 31567 Electrocardiogram Complete Compl eted 12/26/2019 67002 Echocardiography, Tranthoracic R eal-Time Image Documentation Completed 12/26/2019 71842 Electrocardiogram Interpretation & Report Only Completed 12/25/2019 99910 Coronary Angiography With Left H eart Catheterization Completed 12/25/[address] ment Of Intracoronary Stent Completed Medical Devices Description No Information Available Encounters Type Date Location Provider Dx Diagnosis Office Visit 01/29/2020 2:45p [facility] Cardiology [facility] Arnoldo calhoun MD R07.9 Chest pain, unspecified I21.3 ST elevation (Stemi) myocard ial infarction of [facility] site Z95.5 Presence of coronary angiopl asty implant and graft Office Visit 12/27/2019 4:11a [facility] Cardiology [facility] Arnoldo Eckert MD I21.3 ST elevation (Stemi) myocardial infarction of [facility] site R07.9 Chest pain, unspecified Z95.5 Presence of coronary angiopl asty implant and graft Office Visit 12/26/2019 3:18a [facility] Cardiology [facility] Arnoldo Eckert MD R07.9 Chest pain, unspecified Z95.5 Presence of coronary angiopl asty implant and graft Office Visit 12/25/2019 3:20a [facility] Cardiology [facility] Arnoldo Eckert MD G80.9 Cerebral palsy, unspecified E11.9 Type 2 diabetes mellitus wit hout complications Assessments Date Code Description Provider 01/29/2020 R07.9 Chest pain, unspecified Arnoldo Eckert MD 01/29/[address] elevation (Stemi) myocardial infarction of unspecified site Arnoldo Eckert MD 01/29/2020 Z95.5 Presence of coronary angioplasty implant and graft Arnoldo Eckert MD 12/27/[address] elevation (Stemi) myocardial infarction of unspecified site Arnoldo Eckert MD 12/27/2019 R07.9 Chest pain, unspecified Arnoldo Eckert MD 12/27/2019 Z95.5 Presence of coronary angioplasty implant and graft Arnoldo Eckert MD 12/26/2019 R07.9 Chest pain, unspecified Arnoldo Eckert MD 12/26/2019 Z95.5 Presence of coronary angioplasty implant and graft Arnoldo Eckert MD 12/26/2019 R07.9 Chest pain, unspecified Rah Milligan MD 12/26/2019 I25.10 Athscl heart disease of [place]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 ang pctrs Rah Milligan MD 12/26/2019 E11.9 Type 2 diabetes mellitus without complications Rah Milligan MD 12/26/2019 Z79.4 longterm (current) use of insul in Rah Milligan MD 12/26/2019 R07.9 Chest pain, unspecified Kale Doe MD 12/26/2019 I25.10 Athscl heart disease of [place]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 ang pctrs Kale Doe MD 12/26/2019 E11.9 Type 2 diabetes mellitus without complications Kale Doe MD 12/26/2019 Z79.4 longterm (current) use of insul in Kale Doe MD 12/25/2019 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 Rah Milligan MD 12/25/2019 G80.9 Cerebral palsy, unspecified Taz Eckert MD 12/25/2019 E11.9 Type 2 diabetes mellitus without complications Rah Milligan MD 12/25/2019 E11.9 Type 2 diabetes mellitus without complications Arnoldo Eckert MD 12/25/2019 Z79.4 longterm (current) use of insul in Rah Milligan MD Plan of Treatment Future Appointment(s):* 08/02/2020 2:30 pm - Arnoldo Eckert MD at [facility] Cardiology AT [place] 01/29/2020 - Arnoldo Eckert MD* R07.9 Chest pain, unspecified * I21.3 ST elevation (Stemi) myocardial infarction of unspecified site * Z95.5 Presence of coronary angioplasty implant and graft Functional Status Description No Information Available Mental Status Description No Information Available Referrals Description No Information Available
--- OUTSIDE RECORDS SUMMARY | 2020-04-24 16:01 | CCD ---
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 hyperosmolarity Chronic Disease Follow-up with Felicity Godinez MERCHANDISE APPRAISER 11/26/2016 Assess type 2 diabetes mellitus Chronic Disease Follow -up with Felicity Godinez NP 11/26/2016 Headache syndromes Chronic Disease Follow-up with Felicity Godinez MERCHANDISE APPRAISER 11/26/2016 Long-term use of insulin Chronic Disease Follow-up wi th JessicaKayla Godinez MERCHANDISE APPRAISER 11/26/2016 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 Follow-up with Felicity Godinez NP 11/26/2016 Mixed hyperlipoproteinemia Chronic Disease Follow-up w ith JessicaKayla Godinez MERCHANDISE APPRAISER 11/26/2016 Obesity Chronic Disease Follow-up with Felicity Godinez MERCHANDISE APPRAISER 11/26/2016 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 Chronic Disease Follow- up with Felicity Godinez MERCHANDISE APPRAISER 11/26/2016 Assess diabetes mellitus with hyperosmolarity AHR with Felicity Godinez NP 07/16/2016 Assess type 2 diabetes mellitus AHR with Felicity biggs MERCHANDISE APPRAISER 07/16/2016 Long-term use of insulin AHR with Felicity Godinez MERCHANDISE APPRAISER 07/16/2016 Onychomycosis of the left toenails AHR with Felicity Godinez NP 07/16/2016 Visit for: routine adult H&P with abnormal findings AH R with Felicity Godinez MERCHANDISE APPRAISER 07/16/2016 Assess diabetes mellitus with hyperosmolarity Diabetes Follow-up with Felicity Godinez MERCHANDISE APPRAISER 02/06/2016 Assess type 2 diabetes mellitus Diabetes Follow-up wit h Felicity Oscaranagan MERCHANDISE APPRAISER 02/06/2016 Headache syndromes Diabetes Follow-up with Felicity Garza Erin Godinez MERCHANDISE APPRAISER 02/06/2016 Hyperlipidemia Diabetes Follow-up with Felicity Garza Erin Godinez MERCHANDISE APPRAISER 02/06/2016 Long-term use of insulin Diabetes Follow-up with Felicity Garza Mitchell Godinez MERCHANDISE APPRAISER 02/06/2016 Obesity Diabetes Follow-up with Felicity Garza Erin Godinez MERCHANDISE APPRAISER 02/06/2016 Viral gastroenteritis Diabetes Follow-up with Jessicakeyanna Godinez MERCHANDISE APPRAISER 02/06/2016 Mixed hyperlipoproteinemia Problem List Update with Carmen riley Garza Mitchell Godinez MERCHANDISE APPRAISER 10/16/2015 Assess diabetes mellitus with hyperosmolarity Diabetes Follow-up with JessicaKayla Godinez MERCHANDISE APPRAISER 10/03/2015 Assess type 2 diabetes mellitus Diabetes Follow-up wit h Felicity Garza Mitchell Godinez MERCHANDISE APPRAISER 10/03/2015 Diabetes mellitus Diabetes Follow-up with JessicaKayla Godinez MERCHANDISE APPRAISER 10/03/2015 Hyperlipidemia Diabetes Follow-up with Felicity Garza Erin Godinez MERCHANDISE APPRAISER 10/03/2015 Long-term use of insulin Diabetes Follow-up with Felicity Garza Mitchell Godinez MERCHANDISE APPRAISER 10/03/2015 Obesity Diabetes Follow-up with Felicity Garza Eirn Godinez MERCHANDISE APPRAISER 10/03/2015 Assess diabetes mellitus with hyperosmolarity AHR with JessicaKayla Godinez MERCHANDISE APPRAISER 06/27/2015 Assess type 2 diabetes mellitus AHR with JessicaKayla biggs MERCHANDISE APPRAISER 06/27/2015 Diabetes mellitus AHR with JessicaKayla Godinez MERCHANDISE APPRAISER 0 06/27/2015 Disturbance of gait AHR with JessicaKayla Godinez MERCHANDISE APPRAISER 0 06/27/2015 Long-term use of insulin AHR with JessicaKayla Godinez MERCHANDISE APPRAISER 06/27/2015 Refractive diplopia AHR with JessicaKayla Godinez MERCHANDISE APPRAISER 0 06/27/2015 Visit for: routine adult H&P with abnormal findings AH R with Felicity Godinez MERCHANDISE APPRAISER 06/27/2015 Diabetes mellitus Diabetes Follow-up with Felicity Godinez MERCHANDISE APPRAISER 12/20/2014 Obesity Diabetes Follow-up with Felicity Godinez MERCHANDISE APPRAISER 12/20/2014 Viral upper respiratory infection Diabetes Follow-up w ith JessicaKayla Morenogan MERCHANDISE APPRAISER 12/20/2014 Vitamin D deficiency Diabetes Follow-up with Felicity Garza Jose Godinez MERCHANDISE APPRAISER 12/20/2014 Assess medulloblastoma of the cerebellum Diabetes Foll ow-up with Felicity Garza Mitchell Godinez MERCHANDISE APPRAISER 08/23/2014 Diabetes mellitus Diabetes Follow-up with Felicity Garza Erin Godinez MERCHANDISE APPRAISER 08/23/2014 Migraine headache Diabetes Follow-up with Felicity Garza Erin Godinez MERCHANDISE APPRAISER 08/23/2014 Obesity Diabetes Follow-up with Felicity Garza Erin Godinez MERCHANDISE APPRAISER 08/23/2014 Refractive diplopia Diabetes Follow-up with Felicity Garza Erin Godinez MERCHANDISE APPRAISER 08/23/2014 Contact dermatitis AHR with Felicity Garza Mitchell Godinez MERCHANDISE APPRAISER 0 04/13/2014 Diabetes mellitus AHR with Felicity Garza Mitchell Godinez MERCHANDISE APPRAISER 0 04/13/2014 Normal routine history and physical AHR with Felicity Garcia zakia Godinez MERCHANDISE APPRAISER 04/13/2014 Visual disturbances AHR with Felicity Garza Mitchell Godinez MERCHANDISE APPRAISER 0 04/13/2014 Diabetes mellitus Diabetes Follow-up with Felicity Garza Erin Godinez MERCHANDISE APPRAISER 10/27/2013 Obesity Diabetes Follow-up with Felicity Garza Erin Godinez MERCHANDISE APPRAISER 10/27/2013 Visual disturbances Diabetes Follow-up with Felicity Garza Erin Godinez MERCHANDISE APPRAISER 10/27/2013 Vitamin D deficiency Diabetes Follow-up with Felicity Garza Jose Godinez MERCHANDISE APPRAISER 10/27/2013 Foreign body in the foot Advised xray o f R foot to assess for presence of foreign body at distal aspect, between 2nd nad 3rd metarsals. I advised if an object was seen on xray and I could deliniate how large and location of object, I may be willing to take it out. If no object is found on xray, I recommended she give it time to work its way out. 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 Pap with Felicity Garza Mitchell Godinez MERCHANDISE APPRAISER 07/11/2013 Obesity Pap with Felicity Garza Mitchell Godinez MERCHANDISE APPRAISER 0 07/11/2013 Routine gynecological exam with cervical pap smear Pap with Felicity Garza Mitchell Godinez MERCHANDISE APPRAISER 07/11/2013 Diabetes mellitus AHR with Felicity Garza Mitchell Godinez MERCHANDISE APPRAISER 0 04/11/2013 Migraine headache AHR with Felicity Garza Mitchell Godinez MERCHANDISE APPRAISER 0 04/11/2013 Normal routine history and physical AHR with Felicity Garza Jose Godinez MERCHANDISE APPRAISER 04/11/2013 Diabetes mellitus Diabetes Follow-up with Jessicakeyanna Godinez MERCHANDISE APPRAISER 01/05/2013 Medulloblastoma of the cerebellum Diabetes Follow-up w ith JessicaKayla Godinez MERCHANDISE APPRAISER 01/05/2013 Mixed hyperlipoproteinemia Diabetes Follow-up with Meg presley Kayla Godinez MERCHANDISE APPRAISER 01/05/2013 Vitamin D deficiency Diabetes Follow-up with Felicity Garza Jose Godinez MERCHANDISE APPRAISER 01/05/2013 Ward's esophagus Diabetes Follow-up with JessicaKayla Godinez MERCHANDISE APPRAISER 09/15/2012 Benign thyroid neoplasm Diabetes Follow-up with Felicity Garza Isaiah Godinez MERCHANDISE APPRAISER 09/15/2012 Diabetes mellitus Diabetes Follow-up with JessicaKayla Godinez MERCHANDISE APPRAISER 09/15/2012 Medulloblastoma of the cerebellum Diabetes Follow-up w ith Felicity Garza Mitchell Godinez MERCHANDISE APPRAISER 09/15/2012 Migraine headache Diabetes Follow-up with Felicity Garza Erin Godinez MERCHANDISE APPRAISER 09/15/2012 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 Diabetes Follow-up with JessicaKayla Godinez MERCHANDISE APPRAISER 09/15/2012 Obesity Diabetes Follow-up with Jessicakeyanna Godinez MERCHANDISE APPRAISER 09/15/2012 Scabies M Same Day with Le Wilson MERCHANDISE APPRAISER 06/01 Diabetes mellitus 30 minutes with JessicaKayla De Leon an MERCHANDISE APPRAISER 03/10/2012 Hypothyroidism 30 minutes with JessicaKayla De Leon an MERCHANDISE APPRAISER 03/10/2012 Medulloblastoma of the cerebellum 30 minutes with JessicaKayla Godinez MERCHANDISE APPRAISER 03/10/2012 Normal routine history and physical 30 minutes with Carmen lin Kayla Godinez MERCHANDISE APPRAISER 03/10/2012 Vitamin D deficiency 30 minutes with JessicaKayla Moreno kylie MERCHANDISE APPRAISER 03/10/2012 Benign thyroid neoplasm 30 minutes with JessicaKayla Oscar anagan MERCHANDISE APPRAISER 11/20/2011 Diabetes mellitus 30 minutes with JessicaKayla Morenog an MERCHANDISE APPRAISER 11/20/2011 Obesity 30 minutes with JessicaKayla Morenog an MERCHANDISE APPRAISER 11/20/2011 cellulitis lower abdomen M Same Day with Ying I Cornelio MERCHANDISE APPRAISER 10/22/2011 Assessment of throat pain M 20 Minutes with JessicaKayla Godinez NP 08/18/2011 Diabetes mellitus M 20 Minutes with Felicity dorantes MERCHANDISE APPRAISER 08/18/2011 Dysphagia M 20 Minutes with Jessicakeyanna dorantes MERCHANDISE APPRAISER 08/18/2011 Medulloblastoma of the cerebellum M 20 Minutes with Carmen Godinez NP 08/18/2011 Assessment of throat pain 10 Minute Revist with JessicaKayla Godinez MERCHANDISE APPRAISER 01/15/2011 Diabetes mellitus 10 Minute Revist with Felicity Godinez NP 01/15/2011 Globus hystericus 10 Minute Revist with Felicity Godinez NP 01/15/2011 Assessment of throat pain 30 minutes with Felicity Godinez NP 12/11/2010 Medulloblastoma of the cerebellum 30 minutes with Felicity Godinez MERCHANDISE APPRAISER 12/11/2010 Type 2 diabetes mellitus - uncomplicated, uncontrolled 30 minutes with Felicity Godinez MERCHANDISE APPRAISER 12/11/2010 Diabetes mellitus M 20 Minutes with Marli V Ragab DO 04/2010 Diabetic retinopathy M 20 Minutes with Marli V Ragab DO 04/2010 Left rotator cuff sprain (capsule) M 20 Minutes with Marli V Ragab DO 05/28/2010 Acute pharyngitis M Same Day with Alyssa Buckley MERCHANDISE APPRAISER 06/2010 Hypertension M Ov Long 20 with Marli V Ragab DO 09/27 Migraine headache M Ov Long 20 with Marli V Ragab DO 09/27 Obesity M Ov Long 20 with Marli V Ragab DO 09/27 Type II diabetes mellitus M Ov Long 20 with Marli V Ragab D O 10/17/2009 Upper respiratory infection M Ov Long 20 with Marli V Ragab DO 06/19/2009 Viral syndrome --?BPPV M Ov Long 20 with Marli V Ragab DO 06/19/2009 Medulloblastoma of the cerebellum --stable M Ov Long 20 wit h Marli V Ragab DO 05/21/2009 Type II diabetes mellitus - uncomplicated, uncontrolle d M Ov Long 20 with Marli V Ragab DO 05/21/2009 Skin abscess almost completely resolved M Office Visi t - Short with Romy Fontaine MERCHANDISE APPRAISER 04/02/2009 Skin abscess M Short Term Appointment with Romy osullivan NP 03/26/2009 Skin abscess 30 minutes with Romy Fontaine MERCHANDISE APPRAISER 009 Skin abscess 30 minutes with Romy Fontaine MERCHANDISE APPRAISER 009 Pain in limb --right Achilles heel tendon attachment M Office Visit - Short with Marli V Ragab DO 01/23/2009 Type I diabetes mellitus --uncontrolled M Office Visi t - Short with Marli V Ragab DO 01/23/2009 Type II diabetes mellitus - uncomplicated, uncontrolle d M Ov Long 20 with Marli V Ragab DO 06/18/2008 Instructions Instructions not supported for this document typeNo Instructions Recorded Medical Equipment - Implanted Devices Includes: Current and historical DevicesNo Medical Equipment Recorded Medications Includes: Current and historical Medications Current Medications (continue as prescribed) Aspirin 81 MG Oral Tablet Delayed Release 03/07/2020 Provider: Diagnosis: OneTouch Ultra In Vitro Strip 02/19/2020 - 08/17/2020 Provid er: Felicity Godinez MERCHANDISE APPRAISER Diagnosis: Type 2 diabetes caesar itus without complications as directed Use to test BG 4 times a day Brilinta 90 MG Oral Tablet 02/12/2020 Provider: Diagnosis: Metoprolol Succinate 50 MG Oral Capsule ER 24 Hour Sprinkle 12/27/2019 Provider: Diagnosis: Atorvastatin Calcium 80 MG Oral Tablet 12/26/2019 P rovider: Diagnosis: PX Mini Pen Harrison 31G X 5 MM [facility] 11/03/2019 - 05/01/2020 Provider: Diagnosis: Type 2 diab w hypros m w/o nonket hyprgly-hypros coma ([facility]) Use to inject Novolog TID and Basaglar BID OneTouch Ultra STRP 11/03/2019 - 05/01/2020 Provider: Diagnosis: Type 2 diabetes caesar itus without complications Use to test BG 4 times a day OneTouch Delica [facility]ets [facility]G [facility] 11/03/2019 - 05/01/2020 Pro vider: Diagnosis: Oth diab w hyprosm w /o nonket hyprgly-hypros coma ([facility]) Use to test BG QID [employer]PENSE LANCET [employer] Basaglar KwikPen 100 UNIT/ML SC SOPN 11/03/2019 - 05/01/2020 Provider: Diagnosis: Type 2 diabetes caesar itus without complications Inject 26 units BID Basaglar KwikPen 100 UNIT/ML Subcutaneous Solution Pen -injector 11/03/2019 - 05/01/2020 Provider: Felicity Godinez NP Diagnosis: Type 2 diabetes caesar itus without complications twice a day Inject 26 units BID PX Mini Pen Harrison 31G X 5 MM Miscellaneous 11/03/2019 - Provider: Felicity Godinez NP Diagnosis: Type 2 diab w hypros m w/o nonket hyprgly-hypros coma ([facility]) as directed Use to inject Novolog TID and Basaglar BID OneTouch Delica Lancets 33G Miscellaneous 11/03/2019 - 05/01 Provider: Felicity Godinez NP Diagnosis: Oth diab w hyprosm w /o nonket hyprgly-hypros coma ([facility]) four times a day Use to test BG QID DISPENSE LANCET INS [employer] VERS NovoLOG FlexPen 100 UNIT/ML Subcutaneous Solution Pen- injector 07/21/2019 - 07/15/2020 Provider: Felicity Godinez NP Diagnosis: Type 2 diabetes caesar itus without complications as directed Subcutaneously per sliding s tony: 5 Units SM Meal / 10 Units Med Meal / 15 Units Large Meal MDD: 45 Units. Past Medications on file PX Mini Pen Harrison 31G X 5 MM MISC 11/03/2019 - 12/03/2019 Provider: Diagnosis: Type 2 diab w hypros m w/o nonket hyprgly-hypros coma ([facility]) Use to inject Novolog TID and Basaglar BID PX Mini Pen Harrison 31G X 5 MM Miscellaneous 11/03/2019 - Provider: Felicity Godinez NP Diagnosis: Type 2 diab w hypros m w/o nonket hyprgly-hypros coma ([facility]) as directed Use to inject Novolog TID and Basaglar BID OneTouch Ultra In Vitro Strip 11/03/2019 - 02/19/2020 Provid er: Felicity Godinez NP Diagnosis: Type 2 diabetes caesar itus without complications as directed Use to test BG 4 times a day Basaglar KwikPen 100 UNIT/ML Subcutaneous Solution Pen -injector 10/17/2019 - 11/03/2019 Provider: Felicity Godinez NP Diagnosis: Type 2 diabetes caesar itus without complications twice a day twice per day inject 25 units BID titrating up NovoLOG FlexPen 100 UNIT/ML SC SOPN 07/21/2019 - 11/02/2019 Provider: Diagnosis: Type 2 diabetes caesar itus without complications Subcutaneously per sliding scale: 5 Unit s SM Meal / 10 Units Med Meal / 15 Units Large Meal MDD: 45 Units. NovoLOG FlexPen 100 UNIT/ML Subcutaneous Solution Pen- injector 06/29/2019 - 11/02/2019 Provider: Felicity Godinez NP Diagnosis: SUBCUTANEOUSLY PER SLIDING SCALE: 5 UNIT S SM MEAL/10 U MED MEAL/15 U LARGE MEAL MDD: 45 U PX Mini Pen Harrison 31G X 5 MM Miscellaneous 06/05/2019 - Provider: Felicity Godinez NP Diagnosis: Type 2 diab w hypros m w/o nonket hyprgly-hypros coma ([facility]) as directed Use 1 QID Basaglar KwikPen 100 UNIT/ML Subcutaneous Solution Pen -injector 05/02/2019 - 10/17/2019 Provider: Felicity Godinez NP Diagnosis: Type 2 diabetes caesar itus without complications twice a day twice per day inject 25 units BID titrating up OneTouch Ultra Blue STRP 04/25/2019 - 04/25/2019 Provider : Diagnosis: Type 2 diabetes caesar itus without complications Use to test BG 4 times a day OneTouch Ultra Blue In Vitro Strip 04/25/2019 - 11/03/2019 P rovider: Felicity Godinez NP Diagnosis: Type 2 diabetes caesar itus without complications as directed Use to test BG 4 times a day OneTouch Ultra Blue In Vitro Strip 04/20/2019 - 04/25/2019 P rovider: Felicity Godinez NP Diagnosis: Type 2 diabetes caesar itus without complications as directed Use to test BG 5 times a day Amoxicillin 875 MG Oral Tablet 04/13/2019 - 05/02/2019 Provi theodore: Felicity Godinez MERCHANDISE APPRAISER Diagnosis: twice a day one tab po bid PX Mini Pen Harrison 31G X 5 MM Miscellaneous 01/16/2019 - Provider: Felicity Godinez NP Diagnosis: Type 2 diab w hypros m w/o nonket hyprgly-hypros coma ([facility]) as directed Use 1 QID OneTouch Ultra Blue In Vitro Strip 08/17/2018 - 04/20/2019 P rovider: Felicity Godinez NP Diagnosis: Type 2 diabetes caesar itus without complications as directed Use to test BG 5 times a day OneTouch Ultra Blue STRP 08/16/2018 - 04/24/2019 Provider : Diagnosis: Type 2 diabetes caesar itus without complications Use to test BG 5 times a day Basaglar KwikPen 100UNIT/ML Subcutaneous Solution Pen- injector 08/16/2018 - 05/02/2019 Provider: Felicity Godinez NP Diagnosis: Type 2 diabetes caesar itus without complications twice a day twice per day inject 25 units BID titrating up PX Mini Pen Harrison 31G X 5 MM Miscellaneous 08/03/2018 - Provider: Felicity Godinez NP Diagnosis: Type 2 diab w hypros m w/o nonket hyprgly-hypros coma ([facility]) as directed Use 1 QID OneTouch Ultra Blue In Vitro Strip 06/23/2018 - 08/17/2018 P rovider: Felicity Godinez NP Diagnosis: Oth diab w hyprosm w /o nonket hyprgly-hypros coma ([facility]) three times a day Use to test BG TID NovoLOG FlexPen 100UNIT/ML Subcutaneous Solution Pen-i njector 06/07/2018 - 06/29/2019 Provider: Felicity Godinez NP Diagnosis: SUBCUTANEOUSLY PER SLIDING SCALE: 5 UNIT S SM MEAL/10 U MED MEAL/15 U LARGE MEAL MDD: 45 U Basaglar KwikPen 100UNIT/ML Subcutaneous Solution Pen- injector 02/21/2018 - 08/16/2018 Provider: Felicity Godinez NP Diagnosis: Type 2 diabetes caesar itus without complications twice a day twice per day inject 20 units BID PX Mini Pen Harrison 31G X 5 MM Miscellaneous 02/21/2018 - Provider: Felicity Godinez NP Diagnosis: Type 2 diab w hypros m w/o nonket hyprgly-hypros coma ([facility]) as directed Use 1 QID OneTouch Ultra Blue In Vitro Strip 12/13/2017 - 06/23/2018 Jane mclean: Ying Grimes NP Diagnosis: Oth diab w hyprosm w /o nonket hyprgly-hypros coma ([facility]) three times a day Use to test BG TID PX Mini Pen Harrison 31G X 5 MM Miscellaneous 10/04/2017 - Provider: Felicity Godinez NP Diagnosis: Type 2 diab w hypros m w/o nonket hyprgly-hypros coma ([facility]) as directed Use 1 QID Atorvastatin Calcium 10MG Oral Tablet 09/10/2017 - 9 Provider: Felicity Godinez NP Diagnosis: Mixed hyperlipidemia 1 every evening Atorvastatin Calcium 10 MG OR TABS 09/09/2017 - 11/18/2017 P sulaimander: Diagnosis: Mixed hyperlipidemia Atorvastatin Calcium 10MG Oral Tablet 08/18/2017 - 8 Provider: Felicity Godinez NP Diagnosis: 1 every evening Latanoprost 0.005% Ophthalmic Solution 08/13/2017 - 03/03/20 19 Provider: Diagnosis: 1 GTT OUT Q HS Naproxen 500MG Oral Tablet 08/13/2017 - 11/18/2017 Provider: Felicity Godinez NP Diagnosis: twice a day Basaglar KwikPen 100UNIT/ML Subcutaneous Solution Pen- injector 08/13/2017 - 11/18/2017 Provider: Diagnosis: Type 2 diabetes caesar itus without complications twice per day inject 20 units BID Basaglar KwikPen 100UNIT/ML Subcutaneous Solution Pen- injector 07/19/2017 - 02/21/2018 Provider: Felicity Godinez NP Diagnosis: Type 2 diabetes caesar itus without complications twice a day twice per day inject 20 units BID Basaglar KwikPen 100 UNIT/ML SC SOPN 07/15/2017 - 08/13/2017 Provider: Diagnosis: Type 2 diabetes caesar itus without complications twice per day inject 20 units BID OneTouch Ultra Blue In Vitro Strip 06/09/2017 - 12/13/2017 P rovider: Ying Grimes MERCHANDISE APPRAISER Diagnosis: Oth diab w hyprosm w /o nonket hyprgly-hypros coma ([facility]) three times a day Use to test BG TID OneTouch Ultra 2 w/Device KIT 06/09/2017 - 06/10/2017 Provid er: Diagnosis: Type 2 diab w hypros m w/o nonket hyprgly-hypros coma ([facility]) as directed dispense 1 ontough meter per pt insurance OneTouch Ultra 2 w/Device Kit 06/09/2017 - 11/18/2017 Provid er: Ying Grimes MERCHANDISE APPRAISER Diagnosis: Type 2 diab w hypros m w/o nonket hyprgly-hypros coma ([facility]) as directed dispense 1 ontough meter per pt insurance OneTouch Club Lancets Fine Pt Miscellaneous 06/09/2017 - 09/2019 Provider: Ying Grimes MERCHANDISE APPRAISER Diagnosis: Oth diab w hyprosm w /o nonket hyprgly-hypros coma ([facility]) three times a day Use to test BG TID OneTouch Club Lancets Fine Pt MISC 06/08/2017 - 06/10/2017 P rovider: Diagnosis: Oth diab w hyprosm w /o nonket hyprgly-hypros coma ([facility]) Use to test BG TID OneTouch Ultra Blue STRP 06/08/2017 - 06/10/2017 Provider : Diagnosis: Oth diab w hyprosm w /o nonket hyprgly-hypros coma ([facility]) Use to test BG TID OneTouch Ultra 2 w/Device KIT 06/08/2017 - 06/09/2017 Provid er: Diagnosis: Type 2 diab w hypros m w/o nonket hyprgly-hypros coma ([facility]) as directed dispense 1 onetouch meter per pt insurance Eun Contour Next Test In Vitro Strip 06/04/2017 - 06/09/19 18 Provider: Felicity Godinez MERCHANDISE APPRAISER Diagnosis: Type 2 diab w hypros m w/o nonket hyprgly-hypros coma ([facility]) as directed Check BG TID Eun Contour Next Test STRP 06/04/2017 - 06/08/2017 Prov ider: Diagnosis: Type 2 diab w hypros m w/o nonket hyprgly-hypros coma ([facility]) Check BG TID Lantus SoloStar 100 UNIT/ML SC SOPN 06/03/2017 - 06/03/2017 Provider: Diagnosis: Type 2 diabetes caesar itus without complications inject 20 units BID, replacing Levemir was not working Lantus SoloStar 100UNIT/ML Subcutaneous Solution Pen-i njector 06/03/2017 - 07/15/2017 Provider: Felicity Godinez NP Diagnosis: Type 2 diabetes caesar itus without complications twice a day inject 20 units BID, replacing Levemir was not w orking Insulin Syringe 31G X 5/16"1 ML Miscellaneous 05/24/2017 - 0 11/02/2019 Provider: Felicity Godinez NP Diagnosis: Type 2 diabetes caesar itus without complications as directed use with humalog and lantus up to 4 needles per day (DX: E11.9) PX Mini Pen Harrison 31G X 5 MM Miscellaneous 05/12/2017 - Provider: Arias Kendrick MD Diagnosis: Type 2 diab w hypros m w/o nonket hyprgly-hypros coma ([facility]) as directed Use 1 QID Levemir 100UNIT/ML Subcutaneous Solution 04/25/2017 - 2017 Provider: Felicity Godinez NP Diagnosis: Oth diab w hyprosm w /o nonket hyprgly-hypros coma ([facility]) twice a day 20 units SC BID Levemir 100 UNIT/ML SC SOLN 04/22/2017 - 05/12/2017 Provider : Diagnosis: Oth diab w hyprosm w /o nonket hyprgly-hypros coma ([facility]) 20 units SC BID Latanoprost 0.005% Ophthalmic Solution 02/25/2017 - 08/14/19 18 Provider: Diagnosis: 1 GTT OUT Q HS Lantus 100UNIT/ML Subcutaneous Solution 02/25/2017 - 018 Provider: Felicity Godinez NP Diagnosis: as directed 20 units subcutaneous bid NovoLOG FlexPen 100UNIT/ML Subcutaneous Solution Pen-i njector 02/25/2017 - 06/07/2018 Provider: Felicity Godinez NP Diagnosis: SUBCUTANEOUSLY PER SLIDING SCALE: 5 UNIT S SM MEAL/10 U MED MEAL/15 U LARGE MEAL MDD: 45 U Atorvastatin Calcium 10MG Oral Tablet 01/08/2017 - 8 Provider: Felicity Godinez NP Diagnosis: 1 every evening Ciclopirox 8% External Solution 07/16/2016 - 11/18/2017 Prov ider: Felicity Godinez NP Diagnosis: 1 every bedtime APPLY TO NAILS Q HS Lantus 100UNIT/ML Subcutaneous Solution 07/16/2016 - 017 Provider: Felicity Godinez NP Diagnosis: as directed 20 units subcutaneous bid NovoLOG FlexPen 100UNIT/ML Subcutaneous Solution Pen-i njector 07/16/2016 - 02/25/2017 Provider: Felicity Godinez NP Diagnosis: SUBCUTANEOUSLY PER SLIDING SCALE: 5 UNIT S SM MEAL/10 U MED MEAL/15 U LARGE MEAL MDD: 45 U PX Mini Pen Harrison 31G X 5 MM Miscellaneous 07/16/2016 - Provider: Diagnosis: Type 2 diab w hypros m w/o nonket hyprgly-hypros coma ([facility]) Use 1 QID PX Mini Pen Harrison 31G X 5 MM Miscellaneous 06/18/2016 - Provider: Felicity Godinez NP Diagnosis: Type 2 diab w hypros m w/o nonket [facility]gly[facility]hypros [facility] as directed Use 1 QID PX Mini Pen Harrison 31G X 5 MM Miscellaneous 06/18/2016 - Provider: Diagnosis: Type 2 diab w hypros m w/o nonket hyprgly-hypros coma ([facility]) Use 1 QID Insulin Syringe 31G X 5/16" 1 ML Miscellaneous 03/20/2016 - 05/24/2017 Provider: Felicity Godinez NP Diagnosis: Type 2 diabetes caesar itus without complications as directed use with humalog and lantus up to 4 needles per day (DX: E11.9) Lantus 100 UNIT/ML Solution 02/06/2016 - 07/16/2016 Provider : Felicity Godinez NP Diagnosis: as directed 17 units subcutaneous bid Lipitor 10 MG Tablet 10/16/2015 - 07/16/2016 Provider: Felicity Godinez NP Diagnosis: once a day Lantus 100 UNIT/ML Solution 10/03/2015 - 02/06/2016 Provider : Felicity Godinez NP Diagnosis: as directed 30 UNITS Q HS PX Mini Pen [place] 31G X 5 MM [facility] 07/22/2015 - Provider: Felicity oGdinez NP Diagnosis: Type 2 diabetes caesar itus without complications as directed to use with novolog flexpen PX Mini Pen Harrison 31G X 5 MM [facility] 07/22/2015 - 02/06/2016 Provider: Diagnosis: Type 2 diabetes caesar itus without complications to use with novolog flexpen Eun Contour Next Test Strip 07/19/2015 - 06/04/2017 Provid er: Felicity Godinez NP Diagnosis: three times a day CHECK BG TID DX: 250.00 NovoLOG FlexPen 100 UNIT/ML Solution Pen-injector 07/09/2015 - 07/16/2016 Provider: Felicity Godinez NP Diagnosis: SUBCUTANEOUSLY PER SLIDING SCALE: 5 UNIT S SM MEAL/10 U MED MEAL/15 U LARGE MEAL MDD: 45 U HumaLOG 100 UNIT/ML Solution 06/13/2015 - 07/09/2015 Provide r: Felicity Godinez NP Diagnosis: Type 2 diabetes caesar itus without complications as directed 5units- lt meal/ 10 units - med meal / 15 units lg mealMAX dose 45 units/day Insulin Syringe 31G X 5/16" 1 ML [facility] 01/11/2015 - 03/20/2016 Provider: Felicity Godinez NP Diagnosis: Type 2 diabetes caesar itus without complications as directed use with humalog and lantus up to 4 needles per day (DX: E11.9) Insulin Syringe 31G X 5/16" 1 ML [facility] 01/08/2015 - 6 Provider: Diagnosis: Type 2 diabetes caesar itus without complications use with humalog and lantus up to 4 needles per day (DX: E1 1.9) Vitamin D3 2000 UNIT Tablet Chewable 12/20/2014 - 10/03/2015 Provider: Felicity Godinez NP Diagnosis: once a day Eun Contour Next Test Strip 11/26/2014 - 07/19/2015 Provid er: Arias Kendrick MD Diagnosis: Diabetes Mellitus Wi th Unspecified Complication Type Ii or U three times a day CHECK BG TID DX: 250.00 Lantus 100 UNIT/ML Solution 08/31/2014 - 10/03/2015 Provider : Felicity Godinez NP Diagnosis: as directed 40 UNITS QD Eun Contour Next Test Strip 07/20/2014 - 11/26/2014 Provid er: Felicity Godinez NP Diagnosis: Diabetes Mellitus Wi th Unspecified Complication Type Ii or U three times a day CHECK BG TID DX: 250.00 Eun Contour Next Test Strip 07/20/2014 - 07/20/2014 Provid er: Felicity Godinez NP Diagnosis: Diabetes Mellitus Wi th Unspecified Complication Type Ii or U three times a day CHECK BG TID DX: 250.00 HumaLOG 100 UNIT/ML Solution 06/06/2014 - 06/13/2015 Provide r: Felicity Godinez NP Diagnosis: Dm Without Complicat ion Type II or Unspecified Type Not Stat as directed 5units- lt meal/ 10 units - med meal / 15 units lg mealMAX dose 45 units/day Triamcinolone Acetonide 0.5% EX CREA 04/13/2014 - 08/23/2014 Provider: Felicity Godinez NP Diagnosis: apply to affected area two to three times a day as needed Insulin Syringe 31G X 5/16" 1 ML MISC 01/09/2014 - 5 Provider: Felicity Godinez NP Diagnosis: Diabetes Mellitus Wi thout Complication Type Ii or Unspecifie use with humalog and lantus up to 4 needles per day (dx:250. 00) Vitamin D3 1.25 MG (18866 UT) OR CAPS 10/27/2013 - 5 Provider: Felicity Godinez NP Diagnosis: 1 capsule evry month Eun Contour Next Test STRP 10/24/2013 - 07/20/2014 Prov ider: Felicity Godinez NP Diagnosis: Diabetes Mellitus Wi th Unspecified Complication Type Ii or U CHECK BG TID DX: 250.00 Eun Contour Next Test STRP 10/24/2013 - 10/24/2013 Prov ider: Felicity Godinez NP Diagnosis: CHECK BG TID DX: 250.00 HumaLOG 100 UNIT/ML SC SOLN 06/28/2013 - 06/06/2014 Provider : Felicity Godinez NP Diagnosis: Dm Without Complicat ion Type II or Unspecified Type Not Stat 5units- lt meal/ 10 units - med meal / 15 units lg mealMAX d ose 45 units/day Lantus 100 UNIT/ML SC SOLN 06/28/2013 - 08/31/2014 Provider: Felicity Godinez [facility] [employer] Diagnosis: 40 UNITS QD Insulin Syringe 31G X 5/16" 1 ML MISC 06/28/2013 - 4 Provider: Felicity Godinez NP Diagnosis: Diabetes Mellitus Wi thout Complication Type Ii or Unspecifie use with humalog and lantus up to 4 needles per day (dx:250. 00) Eun Contour Next Test STRP 04/28/2013 - 10/24/2013 Prov ider: Felicity Godinez NP Diagnosis: Percocet 7.5-500 MG OR TABS 04/11/2013 - 07/11/2013 Provider : Felicity Godinez NP Diagnosis: 1-2 prn for headaches mdd 2 Calcium Gluconate 500 MG OR TABS 01/05/2013 - 07/11/2013 Pro vider: Felicity Godinez NP Diagnosis: Lipitor 10 MG OR TABS 01/05/2013 - 08/23/2014 Provider: Felicity Godinez NP Diagnosis: Vitamin D3 1.25 MG (41860 UT) OR CAPS 01/05/2013 - 4 Provider: Felicity Godinez [employer] [employer] Diagnosis: 1 CAP PO MONTHLY Insulin Syringe 31G X 5/16" 1 ML MISC 12/20/2012 - 4 Provider: Felicity Godinez NP Diagnosis: Diabetes Mellitus Wi thout Complication Type Ii or Unspecifie use with humalog and lantus up to 4 needles per day (dx:250. 00) HumaLOG 100 UNIT/ML SC SOLN 12/08/2012 - 06/28/2013 Provider : Felicity Godinez [facility] [employer] Diagnosis: Dm Without Complicat ion Type II or Unspecified Type Not Stat UAD per S/S before meals Insulin Syringe 31G X 5/16" 1 ML [facility] 11/07/2012 - 3 Provider: Felicity Godinez NP Diagnosis: Diabetes Mellitus Wi thout Complication Type Ii or Unspecifie use as directed [facility] Omeprazole 20.6 (20 Base) MG OR CPDR 09/15/2012 - 2013 Provider: Diagnosis: 1 qd Lantus 100 UNIT/ML SC SOLN 08/15/2012 - 01/05/2013 Provider: Felicity Godinez NP Diagnosis: 23 UNITS QD Contour Next STRP 06/10/2012 - 04/28/2013 Provider: Felicity Godinez NP Diagnosis: PT MAY TEST UP TO 4 TIMES QD TH Vitamin D3 2000 UNIT OR CAPS 06/10/2012 - 07/11/2013 Prov ider: Felicity Godinez NP Diagnosis: daily Permethrin 5% EX CREA 06/01/2012 - 09/15/2012 Provider: Le Wilson [employer] [employer] Diagnosis: Scabies Apply head to toe avoiding eyes and mout h. Leave on for 10-14 hrs then rinse. Repeat in 2 weeks if symptoms persist HumaLOG 100 UNIT/ML SC SOLN 04/20/2012 - 12/08/2012 Provider : Felicity Godinez NP Diagnosis: Dm Without Complicat ion Type II or Unspecified Type Not Stat UAD per S/S before meals Insulin Syringe 31G X 5/16" 1 ML [facility] 03/16/2012 - 3 Provider: Felicity Godinez NP Diagnosis: Diabetes Mellitus Wi thout Complication Type Ii or Unspecifie use as directed Precision QID Test STRP 03/02/2012 - 07/11/2013 Provider: Felicity Godinez [employer] [employer] Diagnosis: 250.01 HumaLOG 100 UNIT/ML SC SOLN 11/20/2011 - 03/02/2012 Provider : Felicity Godinez NP Diagnosis: Dm Without Complicat ion Type II or Unspecified Type Not Stat UAD per S/S before meals Lantus 100 UNIT/ML SC SOLN 11/20/2011 - 08/15/2012 Provider: Felicity Godinez NP Diagnosis: 23 UNITS QD Percocet 7.5-500 MG OR TABS 11/20/2011 - 01/05/2013 Provider : Diagnosis: 1 QID PRN FOR HEADACHES Bactroban 2% EX OINT 10/22/2011 - 11/20/2011 Provider: Ying Grimes NP Diagnosis: apply to wound abdomen for 1-2 weeks Bactrim DS 800-160 MG OR TABS 10/22/2011 - 11/20/2011 Provid er: Ying Grimes NP Diagnosis: HumaLOG 100 UNIT/ML SC SOLN 08/18/2011 - 11/20/2011 Provider : Felicity Godinez NP Diagnosis: Dm Without Complicat ion Type II or Unspecified Type Not Stat UAD per S/S before meals Lantus 100 UNIT/ML SC SOLN 08/18/2011 - 11/20/2011 Provider: Felicity Godinez NP Diagnosis: 10 UNITS IN JAYELNE. INCREASE 5 UNITS EVERY 5 DAYS UNTIL G OAL. REPLACES HUMULIN N. [employer] [facility] 08/18/2011 - 10/22/2011 Pr ovider: Felicity Godinez NP Diagnosis: USE DIRECTED Insulin Syringe 31G X 5/16" 1 ML MISC 07/10/2011 - 2 Provider: Felicity Godinez NP Diagnosis: Diabetes Mellitus Wi thout Complication Type Ii or Unspecifie use as directedback up being mailed to ra HumuLIN N 100 UNIT/ML SC SUSP 01/23/2011 - 08/20/2011 Provid er: Felicity Godinez NP Diagnosis: Dm Without Complicat ion Type II or Unspecified Type Not Stat 25 units in AM, 30 units in PM Precision QID Test STRP 01/23/2011 - 03/02/2012 Provider: Felicity Godinez NP Diagnosis: 250.01 Daily Value Multivitamin OR TABS 12/11/2010 - 08/18/2011 Pro vider: Diagnosis: HumaLOG 100 UNIT/ML SC SOLN 10/30/2010 - 08/18/2011 Provider : Felicity Godinez NP Diagnosis: Dm Without Complicat ion Type II or Unspecified Type Not Stat UAD per S/S before meals HumuLIN N 100 UNIT/ML SC SUSP 10/30/2010 - 01/15/2011 Provid er: Felicity Godinez NP Diagnosis: Dm Without Complicat ion Type II or Unspecified Type Not Stat 25 units in AM, 30 units in PM HumuLIN N 100 UNIT/ML SC SUSP 07/11/2010 - 10/30/2010 Provid er: Felicity Godinez NP Diagnosis: Dm Without Complicat ion Type II or Unspecified Type Not Stat 25 units in AM, 30 units in PM Insulin Syringe 31G X 5/16" 1 ML MISC 07/03/2010 - 2 Provider: Felicity Godinez NP Diagnosis: Diabetes Mellitus Wi thout Complication Type Ii or Unspecifie use as directedback up being mailed to ra Insulin Syringe 31G X 5/16" 1 ML MISC 07/03/2010 - 1 Provider: Felicity Godinez NP Diagnosis: Diabetes Mellitus Wi thout Complication Type Ii or Unspecifie use as directed HumuLIN N 100 UNIT/ML SC SUSP 07/02/2010 - 07/02/2010 Provid er: Felicity Godinez NP Diagnosis: Dm Without Complicat ion Type II or Unspecified Type Not Stat 25 units in AM, 30 units in PM Misc. Devices MISC 07/02/2010 - 11/20/2011 Provider: Felicity Godinez NP Diagnosis: Insulin Syringes(disposable) U-100 1 ML Misc. Devices MISC 07/02/2010 - 07/02/2010 Provider: Felicity Godinez NP Diagnosis: Insulin Syringes(disposable) U-100 1 ML Penicillin V Potassium 500 MG OR TABS 05/16/2010 - 1 Provider: Felicity Godinez NP Diagnosis: Amoxicillin 875 MG OR TABS 05/02/2010 - 05/28/2010 Provider: Alyssa Buckley NP Diagnosis: Acute Pharyngitis 1 tab po bid X 10 days HumuLIN N 100 UNIT/ML SC SUSP 10/17/2009 - 07/02/2010 Provid er: Marli Tilley DO Diagnosis: Dm Without Complicat ion Type II or Unspecified Type Not Stat 25 units in AM, 30 units in PM Topamax 25 MG OR TABS 10/17/2009 - 08/18/2011 Provider: Marli V Ragab DO Diagnosis: Migraine Unspecified Without Intractable Migraine HumaLOG 100 UNIT/ML SC SOLN 10/17/2009 - 10/30/2010 Provider : Marli Petersonab DO Diagnosis: Dm Without Complicat ion Type II or Unspecified Type Not Stat UAD per S/S before meals Precision QID Test STRP 10/17/2009 - 01/15/2011 Provider: Marli Tilley DO Diagnosis: 250.01 Percocet 7.5-500 MG OR TABS 10/17/2009 - 11/20/2011 Provider : Marli Petersonab DO Diagnosis: 1 po QID PRNMDD-4 Insulin Syringes (Disposable) U-100 1 ML MISC 07/11/2009 - 0 11/20/2011 Provider: Marli Petersonab DO Diagnosis: BACK UP MAILEDDX:250.01 Insulin Syringes (Disposable) U-100 1 ML MISC 07/11/2009 - 0 06/19/2009 Provider: Marli Tilley DO Diagnosis: BACK UP MAILEDDX:250.01 HumuLIN N 100 UNIT/ML SC SUSP 06/13/2009 - 10/17/2009 Provid er: Marli Tilley DO Diagnosis: Dm Without Complicat ion Type II or Unspecified Type Not Stat 25 units in AM30 units in PM Albuterol Sulfate (2.5 MG/3ML) 0.083% IN NEBU 06/10/2009 - 0 10/17/2009 Provider: Felicity Godinez NP Diagnosis: 1 [facility]IAL [facility] MAY USE UP TO QID PRN. Zithromax 250 MG OR TABS 06/10/2009 - 10/17/2009 Provider: Felicity Godinez NP Diagnosis: 2 TABS DAY 1, THEN 1 TAB DAILY DAYS 2 - 5 guaiFENesin 100 MG/5ML OR SOLN 06/10/2009 - 10/17/2009 Provi theodore: Felicity Godinez NP Diagnosis: PLEASE GIVE SUGAR FREE. TAKE 2 - 3 TSP Q 6 HRS PRN. Topamax 25 MG OR TABS 05/21/2009 - 10/17/2009 Provider: Marli Tilley DO Diagnosis: Migraine Unspecified Without Intractable Migraine Bactrim DS 800-160 MG OR TABS 03/19/2009 - 05/21/2009 Provid er: Romy Fontaine [employer] APPRAISER Diagnosis: Keflex 500 MG OR CAPS 03/15/2009 - 03/19/2009 Provider: Romy Fontaine NP Diagnosis: HumuLIN N 100 UNIT/ML SC SUSP 02/18/2009 - 06/13/2009 Provid er: Marli Lili Kristenab DO Diagnosis: Dm Without Complicat ion Type II or Unspecified Type Not Stat 25 units in AM30 units in PM Lisinopril 5 MG OR TABS 01/24/2009 - 10/17/2009 Provider: Marli Petersonab DO Diagnosis: Dm Without Complicat ion Type II or Unspecified Type Not Stat HumaLOG 100 UNIT/ML SC SOLN 01/24/2009 - 10/17/2009 Provider : Marli Petersonab DO Diagnosis: Dm Without Complicat ion Type II or Unspecified Type Not Stat UAD per sliding scale HumuLIN N 100 UNIT/ML SC SUSP 11/16/2008 - 02/18/2009 Provid er: Marli Petersonab DO Diagnosis: Dm Without Complicat ion Type II or Unspecified Type Not Stat 20 units in AM22 units in PM Precision QID Test STRP 11/09/2008 - 10/17/2009 Provider: Marli V Ragab DO Diagnosis: 250.01 Precision QID Test STRP 11/02/2008 - 11/09/2008 Provider: Marli Pearson Ragab DO Diagnosis: 250.01 Insulin Syringes (Disposable) U-100 1 ML MISC 10/17/2008 - 0 06/19/2009 Provider: Marli V Ragab DO Diagnosis: 250.01 Insulin Syringes (Disposable) U-100 1 ML MISC 06/18/2008 - 0 10/17/2008 Provider: Marli V Ragab DO Diagnosis: 250.01 HumuLIN N 100 UNIT/ML SC SUSP 06/18/2008 - 11/16/2008 Provid er: Marli Pearson Ragab DO Diagnosis: Dm Without Complicat ion Type II or Unspecified Type Not Stat 20 units in AM22 units in PM HumaLOG 100 UNIT/ML SC SOLN 06/18/2008 - 01/24/2009 Provider : Marli Pearson Ragab DO Diagnosis: Dm Without Complicat ion Type II or Unspecified Type Not Stat UAD per sliding scale Topamax 50 MG OR TABS 04/05/2008 - 05/21/2009 Provider: Diagnosis: DR RAM HumuLIN N 100 UNIT/ML SC SUSP 12/21/2007 - 06/18/2008 Provid er: Marli Petersonab DRUMMOND Diagnosis: Dm Without Complicat ion Type II or Unspecified Type Not Stat Lisinopril 5 MG OR TABS 12/20/2007 - 01/24/2009 Provider: Marli Tilley DO Diagnosis: Dm Without Complicat ion Type II or Unspecified Type Not Stat HumuLIN N 100 UNIT/ML SC SUSP 12/16/2007 - 12/16/2007 Provid er: Marli Lili Tilley DO Diagnosis: Dm Without Complicat ion Type II or Unspecified Type Not Stat Insulin Syringes (Disposable) U-100 1 ML MISC 12/12/2007 - 0 06/18/2008 Provider: Marli Tilley DO Diagnosis: 250.01 Precision QID Test STRP 11/24/2007 - 11/02/2008 Provider: Marli Tilley DO Diagnosis: 250.01 HumaLOG 100 UNIT/ML SC SOLN 11/24/2007 - 06/18/2008 Provider : Marli Tilley DO Diagnosis: Dm Without Complicat ion Type II or Unspecified Type Not Stat UAD per sliding scale HumuLIN N 100 UNIT/ML SC SUSP 09/09/2007 - 12/16/2007 Provid er: Marli Lili Tilley DO Diagnosis: Dm Without Complicat ion Type II or Unspecified Type Not Stat Percocet 7.5-500 MG OR TABS 08/05/2007 - 10/17/2009 Provider : Diagnosis: 1 po QID PRNMDD-4 Imitrex 50 MG OR TABS 08/05/2007 - 10/17/2009 Provider: Diagnosis: every 2 hours PRNMDD-4 BL Calcium 600 + D 600-200 MG-UNIT OR TABS 08/05/2007 - 09/27 Provider: Diagnosis: Erinc. Devices MISC 06/23/2007 - 05/21/2009 Provider: Arias Kendrick MD Diagnosis: TREAT LT SHOULDER PAIN 3/WK FOR 6 WEEKS 729.5 HumaLOG 100 UNIT/ML SC SOLN 05/10/2007 - 12/20/2007 Provider : Marli Tilley DO Diagnosis: Dm Without Complicat ion Type II or Unspecified Type Not Stat UAD per sliding scale Acetaminophen 325 MG OR TABS 05/09/2007 - 05/21/2009 Provide r: Tyrese Macario MD Diagnosis: Take 1-2 every 4-6 hours as needed for pain/fever Sudafed 30 MG OR TABS 05/09/2007 - 05/21/2009 Provider: Tyrese Macario MD Diagnosis: guaiFENesin 100 MG/5ML OR SOLN 05/09/2007 - 05/21/2009 Provi theodore: Tyrese Macario MD Diagnosis: Please give sugar freel. Take 2-3 tsp every 6 hours as neede d Insulin Syringes (Disposable) U-100 1 ML MISC 05/03/2007 - 0 12/12/2007 Provider: Marli Tilley DO Diagnosis: 250.01 Precision QID Test STRP 05/03/2007 - 12/20/2007 Provider: Marli Tilley DO Diagnosis: 250.01 Lexapro 20 MG OR TABS 04/25/2007 - 11/09/2007 Provider: Marli Tilley DO Diagnosis: Major Depressive Aff ective Disorder Single Episode Unspecifi HumaLOG 100 UNIT/ML SC SOLN 04/25/2007 - 04/25/2007 Provider : Marli Tilley DO Diagnosis: Dm Without Complicat ion Type II or Unspecified Type Not Stat UAD per sliding scale HumuLIN N 100 UNIT/ML SC SUSP 04/25/2007 - 09/09/2007 Provid er: Marli Lili Petersonab DO Diagnosis: Dm Without Complicat ion Type II or Unspecified Type Not Stat NovoLIN N 100 UNIT/ML SC SUSP 04/25/2007 - 04/25/2007 Provid er: Marli V Ragab DO Diagnosis: 17 units q AM / 22 units q PM Misc. Devices MISC 04/13/2007 - 06/23/2007 Provider: Arias Kendrick MD Diagnosis: PT EVAL AND TREAT LT SHOULDER PAIN 3/WK FOR 6 WEEKS 729.5 NovoLIN N 100 UNIT/ML SC SUSP 04/13/2007 - 04/25/2007 Provid er: Marli V Ragab DO Diagnosis: 17 units q AM / 22 units q PM Prempro 0.625-2.5 MG OR TABS 04/13/2007 - 04/25/2007 Provide r: Diagnosis: Misc. Devices KIT 03/04/2007 - 05/21/2009 Provider: Arias Kendrick MD Diagnosis: XRAY ORDER; LEFT SHOULDER NovoLIN N 100 UNIT/ML SC SUSP 02/14/2007 - 04/13/2007 Provid er: Marli V Ragab DO Diagnosis: 17 units q AM / 22 units q PM NovoLIN N 100 UNIT/ML SC SUSP 01/20/2007 - 02/14/2007 Provid er: Marli V Ragab DO Diagnosis: 17 units q AM / 22 units q PM Medications Administered Includes: Administered Medications in patient's chartNo Administered Medications Recorded Vital Signs Includes: Vital Signs from 03/07/2019 through 03/07/2020 Vital Name 03/07/2020 01:43P 11/02/2019 11:52A 04/13/2019 0 8:52A Body Mass Index (kg/m2) 34.0 33.0 32.0 Body Surface Area (m2) 2.00 1.99 1.97 Pain Level 0 0 5 Oxygen Saturation (%) 97 98 95 Flow Rate (l/min) (None (Room Air)) (None (Room Air)) (None ( Room Air)) FiO2 (%) 21 21 21 Blood Pressure Sitting L 122/68 128/80 122/68 BP Cuff Size Large Regular Large Pulse Rate-Sitting (bpm) 83 99 81 Respiration Rate (breaths/min) 18 18 1 6 Temp-Tympanic (F) 97.5 97 97.6 Height (in) 65 65.5 65.5 Weight (lb) 204.6 201.2 195 Results Includes: Results from 03/07/2019 through 03/07/2020 Hgb A1c In-House Labs Ordered by Felicity Godinez NP on 11/02/2019 Specimen Source: Whole blood Collected: 11/02/2019 R eported: 11/02/2019 Hgb A1c 7.0 A (Abnormal) Reviewed on 11/02/2019; All test result s are final unless otherwise noted. History of Present Illness History of Present Illness not supported for this document typeNo History of Present Illness Recorded Social History Description Last Updated No secondhand cigarette smoke exposure 03/07/2020 Smoking status 03/07/2020 : Never smoker 03/07/2020 Current nonsmoker 08/13/2017 Current smoker 08/13/2017 Activities of daily living 07/16/2016 Alcohol use (female) greater than 3 drinks per occasi on / 7 per week 07/16/2016 control method not specified 07/16/2016 Caffeine use 07/16/2016 Child custody status 07/16/2016 Educational level some college 07/16/2016 Exercise frequency 07/16/2016 No domestic violence 07/16/2016 Not using drugs 07/16/2016 Sexually active 07/16/2016 Educational level: grade 07/11/2013 In grade 7-12 07/11/2013 Daily cola consumption 04/11/2013 Has high school diploma 04/11/2013 No physical disability 04/11/2013 Good exercise habits 04/25/2007 Procedures and Surgical/Medical History Includes: Procedures from 03/07/2019 through 03/07/2020 Procedures CPT-4 Diagnosis Performing Provider Service Location Service Date Influenza virus vaccine, preservative free, 6 months and up [id number] Encounter for immunization Felicity Godinez NP 03/07/2020 [facility] -Subsequent Annual Wellness Visit [id number] En cntr for general adult medical exam w/o abnormal findings, Type 2 diabetes mellitus without complications, Mixed hyperlipidemia, Obesity, unspecified Felicity Godinez [facility] 11/02/2019 Medical History Last Updated Premature cardiovascular disease was 2.0 ASCVD 10 Yea r Risk 10/16/2015 Fundoscopic exam through dilated pupils was performed 11/06/2014 NO DIABETIC RETINOPATHY 01/25/2015 1 1 04/13/2014 Patient screening 04/13/2014 Offered for HIV - Refused 04/13/2014 Para 1 07/11/2013 A mammogram was performed 04/11/2013 Standardized depression screening: negative for sympto ms 04/11/2013 brain tumor removed 200001/05/2013 No history of coronary artery disease 01/05/2013 No history of essential hypertension 01/05/2013 No history of hyperlipidemia 01/05/2013 Past medical history Please see Problem List for Acti ve Chronic Problems 09/15/2012 No history of atherosclerosis of extremities 8 No history of congestive heart failure 04/25/2007 No history of prior myocardial infarction 04/25/2007 Taking diabetic medication 04/13/2007 Family History Includes: Family History in patient's chart Description Last Updated Family history of asthma mother 07/16/2016 Family history of cancer materal grandmother colon ca ncer 07/16/2016 Family history of diabetes mellitus father 07/16/2016 Family history of hypertension both mom an father Maternal history of depression mother 07/16/2016 Paternal history of depression 07/16/2016 Paternal history of not using drugs 07/16/2016 Family history of type 2 diabetes mellitus 12/20/2014 Maternal history of not using drugs 12/20/2014 Family history of depression 07/11/2013 Family history of heart disease 07/11/2013 Family history of not using drugs 04/11/2013 Family history of colon cancer in first degree relative before age 60 grandmother 01/05/2013 No family history of depression 01/05/2013 No family history of early deaths 01/05/2013 Family history unchanged 03/15/2009 Family in good health 04/25/2007 Review of Systems Review of Systems not supported for this document typeNo Review of Systems Recorded Mental Status Mental Status not supported for this document type Description Oriented to time, place, and person Thought processes were not impaired The thought content revealed no impairme nt Functional Status Functional Status not supported for this document typeNo Functional Status Recorded Physical Exam Physical Exam not supported for this document typeNo Physical Exam Recorded Immunizations Includes: Immunizations in patient's chart Vaccine Dose # Date Site Reaction(s) Status Source Boostrix 1 08/16/2018 Left Deltoid Complete (Administered) [facility] Influenza 1 12/20/2007 Left Arm Complete (Administered) [facility] Influenza 2 01/23/2009 Right Arm Complete (Administered) [facility] Influenza 3 12/11/2010 Left Arm Complete (Administered) [facility] Influenza 4 03/10/2012 Upper Left Arm Complete (Administer ed) [facility] Influenza 5 01/05/2013 Left Arm Complete (Administered) [facility] Influenza, seasonal, injectable 1 03/03/2019 Right Deltoid Complete (Administered) [facility] Note: pt knows to call with any complications no matter time of day Influenza, seasonal, injectable 2 03/07/2020 Upper Left Arm Complete (Administered) [facility] Allergies Includes: Active, inactive, and resolved Allergies Substance Type Reaction Effective Status Seafood Allergy FEELS LIKE THROAT CLOSES OFF 07/16/2016 Active Accupril 10 MG Oral Tablet Allergy heart felt like it stopped 04/13/2007 Active Encounters Includes: Encounters from 03/07/2019 through 03/07/2020 Encounter Provider Location Date Diagnosis Diabetes Follow-up Felicity Godinez [facility] Hypertension (systemic), Obesity, Hyperlipidemia, Diabetes Mellitus, Acute Myocardial Infarction Non-st Elevation [facility] Felicity Godinez [facility] 11/02/19 20 Visit For: Routine Adult H&p Without Abnormal Findings, Diabetes Mellitus, Hyperlipoproteinemia Mixed, Obesity Walk-In Felicity Oscaranagan [facility] 04/13/19 20 Lower Respiratory Tract Infection Acute, Sinusitis Acute, Diabetes Mellitus Insurance Includes: Active Insurance Policies Plan Name Member ID Group # Subscriber Relationship Effective Da jordon 1 - [employer] [id number] Lizette Calderon Self 03/29 - Unknown 2 - [employer] [id number] Lizette mercado Self 03/04/2007 - Unknown Advance Directives Includes: Current Advance Directives Directive Pat Aware Third Green Party Effective Date Reviewed Status RHIO Yes 11/20/2011 Current and Ve rified Note: 11/20/11 packet given Pt Bill of Rights, Priv Prac, Ad Dir Yes 11/02/2019 Current and Verified Note: Pt declined AD packet Ebola Screening Performed Yes 11/02/2019 Current and Verified Note: Within the last month, have you traveled outside of the [place]? - NO Health Concerns Includes: Active Health ConcernsNo Active Health Concerns Recorded Goals Includes: Active GoalsNo Active Goals Recorded Interventions Includes: Interventions for active GoalsNo Interventions Recorded Evaluations & Outcomes Includes: Evaluations & Outcomes for active GoalsNo Outcomes Recorded
--- OUTSIDE RECORDS SUMMARY | 2020-04-24 16:01 | CCD | Continuity of Care Document ---
Author Author Lizette ECKERT MD Organization Unknown Address [address] [place] [address] [place] [id number] Phone [phone] Care Team Providers Care Basket Filler Name Role Phone Felicity Villarreal MD [facility] [phone] Problems Active Problems Provider Date Type [...] Available Procedures Date Code Description Status 01/29/2020 47866 Electrocardiogram Complete Compl eted 12/26/2019 09159 Echocardiography, Tranthoracic R eal-Time Image Documentation Completed 12/26/2019 37026 Electrocardiogram Interpretation & Report Only Completed 12/25/2019 35044 Coronary Angiography With Left H eart Catheterization Completed 12/25/[address] ment Of Intracoronary Stent Completed Medical Devices Description No Information Available Encounters Type Date Location Provider Dx Diagnosis Office Visit 01/29/2020 2:45p [facility] Cardiology [facility] Arnoldo calhoun MD R07.9 Chest pain, unspecified I21.3 ST elevation (Stemi) myocard ial infarction of [facility] site Z95.5 Presence of coronary angiopl asty implant and graft Office Visit 12/27/2019 4:11a [facility] Cardiology [facility] Arnoldo Eckert MD I21.3 ST elevation (Stemi) myocardial infarction of [facility] site R07.9 Chest pain, unspecified Z95.5 Presence of coronary angiopl asty implant and graft Office Visit 12/26/2019 3:18a [facility] Cardiology [facility] Arnoldo Eckert MD R07.9 Chest pain, unspecified Z95.5 Presence of coronary angiopl asty implant and graft Office Visit 12/25/2019 3:20a [facility] Cardiology [facility] Arnoldo Eckert MD G80.9 Cerebral palsy, [...] MD 12/26/2019 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 Rah Milligan MD 12/26/2019 E11.9 Type 2 diabetes mellitus without complications Rah Milligan MD 12/26/2019 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 Rah Milligan MD 12/26/2019 R07.9 Chest pain, unspecified Kale Doe MD 12/26/2019 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 Kale Doe MD 12/26/2019 E11.9 Type 2 diabetes mellitus without complications Kale Doe MD 12/26/2019 Z79.4 USP (current) use of insul in Kale Doe MD 12/25/2019 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 Rah Milligan MD 12/25/2019 G80.9 Cerebral palsy, unspecified Taz Eckert MD 12/25/2019 E11.9 Type 2 diabetes mellitus without complications Rah Milligan MD 12/25/2019 E11.9 Type 2 diabetes mellitus without complications Arnoldo Eckert MD 12/25/2019 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
--- OUTSIDE RECORDS SUMMARY | 2020-04-24 16:02 | CCD ---
Author Author [facility] Organization [facility] Address Unknown Phone Unavailable Care Team Providers Care Vice President Name Role Phone Fabrice ECKERT MD Unavailable Unavailable Fabrice ECKERT MD Unavailable Unavailable Fabrice ECKERT MD Unavailable Unavailable Fabrice ECKERT MD Unavailable Unavailable Fabrice ECKERT MD Unavailable Unavailable Fabrice ECKERT MD Unavailable Unavailable Fabrice ECKERT MD Unavailable Unavailable Fabrice ECKERT MD Unavailable Unavailable Fabrice ECKERT MD Unavailable Unavailable Fabrice ECKERT MD Unavailable Unavailable Fabrice ECKERT MD Unavailable Unavailable Fabrice ECKERT MD Unavailable Unavailable Fabrice ECKERT MD Unavailable Unavailable Fabrice ECKERT MD Unavailable Unavailable Fabrice ECKERT MD Unavailable Unavailable Fabrice ECKERT MD Unavailable Unavailable Fabrice ECKERT MD Unavailable Unavailable Fabrice ECKERT MD Unavailable Unavailable Fabrice ECKERT MD Unavailable Unavailable Fabrice ECKERT MD Unavailable Unavailable Fabrice ECKERT MD Unavailable Unavailable Fabrice ECKERT MD Unavailable Unavailable Fabrice ECKERT MD Unavailable Unavailable Fabrice ECKERT MD Unavailable Unavailable Fabrice ECKERT MD Unavailable Unavailable Fabrice ECKERT MD Unavailable Unavailable Fabrice ECKERT MD Unavailable Unavailable Fabrice ECKERT MD Unavailable Unavailable Fabrice ECKERT MD Unavailable Unavailable Fabrice ECKERT MD Unavailable Unavailable Fabrice ECKERT MD Unavailable Unavailable Fabrice ECKERT MD Unavailable Unavailable Fabrice ECKERT MD Unavailable Unavailable Fabrice ECKERT MD Unavailable Unavailable Fabrice ECKERT MD Unavailable Unavailable Fabrice ECKERT MD Unavailable Unavailable Fabrice ECKERT MD Unavailable Unavailable Fabrice ECKERT MD Unavailable Unavailable Fabrice ECKERT MD Unavailable Unavailable Fabrice ECKERT MD Unavailable Unavailable Fabrice ECKERT MD Unavailable Unavailable Fabrice ECKERT MD Unavailable Unavailable Fabrice ECKERT MD Unavailable Unavailable Fabrice ECKERT MD Unavailable Unavailable Fabrice ECKERT MD Unavailable Unavailable Fabrice ECKERT MD Unavailable Unavailable Fabrice ECKERT MD Unavailable Unavailable Fabrice ECKERT MD Unavailable Unavailable Fabrice ECKERT MD Unavailable Unavailable Fabrice ECKERT MD Unavailable Unavailable Fabrice ECKERT MD Unavailable Unavailable Fabrice ECKERT MD Unavailable Unavailable Fabrice ECKERT MD Unavailable Unavailable Fabrice ECKERT MD Unavailable Unavailable Fabrice ECKERT MD Unavailable Unavailable Fabrice ECKERT MD Unavailable Unavailable Fabrice ECKERT MD Unavailable Unavailable Fabrice ECKERT MD Unavailable Unavailable Fabrice ECKERT MD Unavailable Unavailable Fabrice ECKERT MD Unavailable Unavailable Fabrice ECKERT MD Unavailable Unavailable Fabrice ECKERT MD Unavailable Unavailable Fabrice ECKERT MD Unavailable Unavailable Fabrice ECKERT MD Unavailable Unavailable Fabrice ECKERT MD Unavailable Unavailable Fabrice ECKERT MD Unavailable Unavailable Fabrice ECKERT MD Unavailable Unavailable Fabrice ECKERT MD Unavailable Unavailable Fabrice ECKERT MD Unavailable Unavailable Fabrice ECKERT MD Unavailable Unavailable Fabrice ECKERT MD Unavailable Unavailable Fabrice ECKERT MD Unavailable Unavailable Fabrice ECKERT MD Unavailable Unavailable BURGER, W AUREA PA Unavailable Unavailable BURGER, W AUREA PA Unavailable Unavailable BURGER, W AUREA PA Unavailable Unavailable BURGER, W AUREA PA Unavailable Unavailable BURGER, W AUREA PA Unavailable Unavailable BURGER, W AUREA PA Unavailable Unavailable BURGER, W AUREA PA Unavailable Unavailable BURGER, W AUREA PA Unavailable Unavailable BURGER, W AUREA PA Unavailable Unavailable BURGER, W AUREA PA Unavailable Unavailable BURGER, W AUREA PA Unavailable Unavailable BURGER, W AUREA PA Unavailable Unavailable BURGER, W AUREA PA Unavailable Unavailable BURGER, W AUREA PA Unavailable Unavailable BURGER, W AUREA PA Unavailable Unavailable BURGER, W AUREA PA Unavailable Unavailable BURGER, W AUREA PA Unavailable Unavailable BURGER, W AUREA PA Unavailable Unavailable BURGER, W AUREA PA Unavailable Unavailable BURGER, W AUREA PA Unavailable Unavailable BURGER, W AUREA PA Unavailable Unavailable BURGER, W AUREA PA Unavailable Unavailable BURGER, W AUREA PA Unavailable Unavailable BURGER, W AUREA PA Unavailable Unavailable BURGER, W AUREA PA Unavailable Unavailable BURGER, W AUREA PA Unavailable Unavailable BURGER, W AUREA PA Unavailable Unavailable BURGER, W AUREA PA Unavailable Unavailable BURGER, W AUREA PA Unavailable Unavailable BURGER, W AUREA PA Unavailable Unavailable BURGER, W AUREA PA Unavailable Unavailable BURGER, W AUREA PA Unavailable Unavailable BURGER, W AUREA PA Unavailable Unavailable BURGER, W AUREA PA Unavailable Unavailable BURGER, W AUREA PA Unavailable Unavailable BURGER, W AUREA PA Unavailable Unavailable BURGER, W AUREA PA Unavailable Unavailable BURGER, W AUREA PA Unavailable Unavailable BURGER, W AUREA PA Unavailable Unavailable BURGER, W AUREA PA Unavailable Unavailable BURGER, W AUREA PA Unavailable Unavailable BURGER, W AUREA PA Unavailable Unavailable BURGER, W AUREA PA Unavailable Unavailable BURGER, W AUREA PA Unavailable Unavailable BURGER, W AUREA PA Unavailable Unavailable BURGER, W AUREA PA Unavailable Unavailable PHYSICIAN, ER Unavailable Unavailable GENIA-GODINEZ, ELIZABETH CHILDHOOD TEACHER Unavailable Unavaila ble GENIA-GODINEZ, ELIZABETH CHILDHOOD TEACHER Unavailable Unavaila ble GENIA-GODINEZ, ELIZABETH CHILDHOOD TEACHER Unavailable Unavaila ble GENIA-GODINEZ, ELIZABETH CHILDHOOD TEACHER Unavailable Unavaila ble GENIA-GODINEZ, ELIZABETH CHILDHOOD TEACHER Unavailable Unavaila ble GENIA-GODINEZ, ELIZABETH CHILDHOOD TEACHER Unavailable Unavaila ble GENIA-GODINEZ, ELIZABETH CHILDHOOD TEACHER Unavailable Unavaila ble GENIA-GODINEZ, ELIZABETH CHILDHOOD TEACHER Unavailable Unavaila ble GENIA-GODNIEZ, ELIZABETH CHILDHOOD TEACHER Unavailable Unavaila ble GENIA-GODINEZ, ELIZABETH CHILDHOOD TEACHER Unavailable Unavaila ble GENIA-GODINEZ, ELIZABETH CHILDHOOD TEACHER Unavailable Unavaila ble GENIA-GODINEZ, FELICITY RODRIGUEZ CHILDHOOD TEACHER Unavailable Unavaila ble GENIA-GODINEZ, FELICITY RODRIGUEZ CHILDHOOD TEACHER Unavailable Unavaila ble GENIA-GODINEZ, FELICITY RODRIGUEZ CHILDHOOD TEACHER Unavailable Unavaila ble GENIA-GODINEZ, FELICITY RODRIGUEZ CHILDHOOD TEACHER Unavailable Unavaila ble GENIA-GODINEZ, FELICITY RODRIGUEZ CHILDHOOD TEACHER Unavailable Unavaila ble GENIA-GODINEZ, FELICITY RODRIGUEZ CHILDHOOD TEACHER Unavailable Unavaila ble GENIA-GODINEZ, FELICITY RODRIGUEZ CHILDHOOD TEACHER Unavailable Unavaila ble GENIA-GODINEZ, FELICITY RODRIGUEZ CHILDHOOD TEACHER Unavailable Unavaila ble GENIA-GODINEZ, FELICITY RODRIGUEZ CHILDHOOD TEACHER Unavailable Unavaila ble GENIA-GODINEZ, FELICITY RODRIGUEZ CHILDHOOD TEACHER Unavailable Unavaila ble GENIA-GODINEZ, FELICITY RODRIGUEZ CHILDHOOD TEACHER Unavailable Unavaila ble GENIA-GODINEZ, FELICITY RODRIGUEZ CHILDHOOD TEACHER Unavailable Unavaila ble GENIA-GODINEZ, FELICITY RODRIGUEZ CHILDHOOD TEACHER Unavailable Unavaila ble GENIA-GODINEZ, FELICITY RODRIGUEZ CHILDHOOD TEACHER Unavailable Unavaila ble GENIA-GODINEZ, FELICITY RODRIGUEZ CHILDHOOD TEACHER Unavailable Unavaila ble GENIA-GODINEZ, FELICITY RODRIGUEZ CHILDHOOD TEACHER Unavailable Unavaila ble GENIA-GODINEZ, FELICITY RODRIGUEZ CHILDHOOD TEACHER Unavailable Unavaila ble GENIA-GODINEZ, FELICITY RODRIGUEZ CHILDHOOD TEACHER Unavailable Unavaila ble GENIA-GODINEZ, FELICITY RODRIGUEZ CHILDHOOD TEACHER Unavailable Unavaila ble GENIA-GODINEZ, FELICITY RODRIGUEZ CHILDHOOD TEACHER Unavailable Unavaila ble GENIA-GODINEZ, FELICITY RODRIGUEZ CHILDHOOD TEACHER Unavailable Unavaila ble GENIA-GODINEZ, FELICITY RODRIGUEZ CHILDHOOD TEACHER Unavailable Unavaila ble GENIA-GODINEZ, FELICITY RODRIGUEZ CHILDHOOD TEACHER Unavailable Unavaila ble GENIA-GODINEZ, FELICITY RODRIGUEZ CHILDHOOD TEACHER Unavailable Unavaila ble GENIA-GODINEZ, FELICITY RODRIGUEZ CHILDHOOD TEACHER Unavailable Unavaila ble GENIA-GODINEZ, FELICITY RODRIGUEZ CHILDHOOD TEACHER Unavailable Unavaila ble GENIA-GODINEZ, FELICITY RODRIGUEZ CHILDHOOD TEACHER Unavailable Unavaila ble GENIA-GODINEZ, FELICITY RODRIGUEZ CHILDHOOD TEACHER Unavailable Unavaila ble GENIA-GODINEZ, FELICITY RODRIGUEZ CHILDHOOD TEACHER Unavailable Unavaila ble GENIA-GODINEZ, FELICITY RODRIGUEZ CHILDHOOD TEACHER Unavailable Unavaila ble GENIA-GODINEZ, FELICITY RODRIGUEZ CHILDHOOD TEACHER Unavailable Unavaila ble GENIA-GODINEZ, FELICITY RODRIGUEZ CHILDHOOD TEACHER Unavailable Unavaila ble GENIA-GODINEZ, ELIZABETH CHILDHOOD TEACHER Unavailable Unavaila ble GENIA-GODINEZ, ELIZABETH CHILDHOOD TEACHER Unavailable Unavaila ble GENIA-GODINEZ, ELIZABETH CHILDHOOD TEACHER Unavailable Unavaila ble HERMINIO, K YOGESH CHILDHOOD TEACHER Unavailable Unavailable HERMINIO, K YOGESH CHILDHOOD TEACHER Unavailable Unavailable HERMINIO, K YOGESH CHILDHOOD TEACHER Unavailable Unavailable HERMINIO, K YOGESH CHILDHOOD TEACHER Unavailable Unavailable HERMINIO, K YOGESH CHILDHOOD TEACHER Unavailable Unavailable HERMINIO, K YOGESH CHILDHOOD TEACHER Unavailable Unavailable HERMINIO, K YOGESH CHILDHOOD TEACHER Unavailable Unavailable HERMINIO, K YOGESH CHILDHOOD TEACHER Unavailable Unavailable HERMINIO, K YOGESH CHILDHOOD TEACHER Unavailable Unavailable HERMINIO, K YOGESH CHILDHOOD TEACHER Unavailable Unavailable HERMINIO, K YOGESH CHILDHOOD TEACHER Unavailable Unavailable HERMINIO, K YOGESH CHILDHOOD TEACHER Unavailable Unavailable HERMINIO, K YOGESH CHILDHOOD TEACHER Unavailable Unavailable HERMINIO, K YOGESH CHILDHOOD TEACHER Unavailable Unavailable HERMINIO, K YOGESH CHILDHOOD TEACHER Unavailable Unavailable HERMINIO, K YOGESH CHILDHOOD TEACHER Unavailable Unavailable HERMINIO, K YOGESH CHILDHOOD TEACHER Unavailable Unavailable HERMINIO, K YOGESH CHILDHOOD TEACHER Unavailable Unavailable HERMINIO, K YOGESH CHILDHOOD TEACHER Unavailable Unavailable HERMINOI, K YOGESH CHILDHOOD TEACHER Unavailable Unavailable HERMINIO, K YOGESH CHILDHOOD TEACHER Unavailable Unavailable HERMINIO, K YOGESH CHILDHOOD TEACHER Unavailable Unavailable HERMINIO, K YOGESH CHILDHOOD TEACHER Unavailable Unavailable HERMINIO, K YOGESH CHILDHOOD TEACHER Unavailable Unavailable HERMINIO, K YOGESH CHILDHOOD TEACHER Unavailable Unavailable HERMINIO, K YOGESH CHILDHOOD TEACHER Unavailable Unavailable HERMINIO, K YOGESH CHILDHOOD TEACHER Unavailable Unavailable HERMINIO, K YOGESH CHILDHOOD TEACHER Unavailable Unavailable HERMINIO, K YOGESH CHILDHOOD TEACHER Unavailable Unavailable HERMINIO, K YOGESH CHILDHOOD TEACHER Unavailable Unavailable HERMINIO, K YOGESH CHILDHOOD TEACHER Unavailable Unavailable PHYSICIAN, PHYSICIAN ER Unavailable Unavailable Fabrice ECKERT MD Unavailable Unavailable Fabrice ECKERT MD Unavailable Unavailable Fabrice ECKERT MD Unavailable Unavailable Fabrice ECKERT MD Unavailable Unavailable Fabrice ECKERT MD Unavailable Unavailable Fabrice ECKERT MD Unavailable Unavailable Fabrice ECKERT MD Unavailable Unavailable Fabrice ECKERT MD Unavailable Unavailable Fabrice ECKERT MD Unavailable Unavailable Fabrice ECKERT MD Unavailable Unavailable Fabrice ECKERT MD Unavailable Unavailable Fabrice ECKERT MD Unavailable Unavailable Fabrice ECKERT MD Unavailable Unavailable Fabrice ECKERT MD Unavailable Unavailable Fabrice ECKERT MD Unavailable Unavailable Fabrice ECKERT MD Unavailable Unavailable Fabrice ECKERT MD Unavailable Unavailable Fabrice ECKERT MD Unavailable Unavailable Fabrice ECKERT MD Unavailable Unavailable ECKERT, E MILAN MD Unavailable Unavailable ECKERT, E MILAN MD Unavailable Unavailable ECKERT, E MILAN MD Unavailable Unavailable ECKERT, E MILAN MD Unavailable Unavailable ECKERT E MILAN MD Unavailable Unavailable ECKERT, E MILAN MD Unavailable Unavailable ECKERT, E MILAN MD Unavailable Unavailable ECKERT, E MILAN MD Unavailable Unavailable ECKERT, E MILAN MD Unavailable Unavailable ECKERT, E MILAN MD Unavailable Unavailable ECKERT, E MILAN MD Unavailable Unavailable ECKERT E MILAN MD Unavailable Unavailable ECKERT E MILAN MD Unavailable Unavailable ECKERT, E MILAN MD Unavailable Unavailable ECKERT, E MILAN MD Unavailable Unavailable ECKERT, E MILAN MD Unavailable Unavailable ECKERT, E MILAN MD Unavailable Unavailable ECKERT, E MILAN MD Unavailable Unavailable ECKERT E MILAN MD Unavailable Unavailable ECKERT, E MILAN MD Unavailable Unavailable ECKERT, E MILAN MD Unavailable Unavailable ECKERT, E MILAN MD Unavailable Unavailable ECKERT, E MILAN MD Unavailable Unavailable ECKERT, E MILAN MD Unavailable Unavailable ECKERT, E MILAN MD Unavailable Unavailable ECKERT, E MILAN MD Unavailable Unavailable ECKERT, E MILAN MD Unavailable Unavailable ECKERT, E MILAN MD Unavailable Unavailable ECKERT, E MILAN MD Unavailable Unavailable ECKERT, E MILAN MD Unavailable Unavailable ECKERT, E MILAN MD Unavailable Unavailable ECKERT, E MILAN MD Unavailable Unavailable ECKERT, E MILAN MD Unavailable Unavailable ECKERT, E MILAN MD Unavailable Unavailable ECKERT E MILAN MD Unavailable Unavailable ECKERT, E MILAN MD Unavailable Unavailable ECKERT, E MILAN MD Unavailable Unavailable ECKERT, E MILAN MD Unavailable Unavailable ECKERT, E MILAN MD Unavailable Unavailable TOMEKA E MILAN Unavailable Unavailable ECKERT, E MILAN MD Unavailable Unavailable ECKERT, E MILAN MD Unavailable Unavailable ECKERT, E MILAN MD Unavailable Unavailable ECKERT, E MILAN MD Unavailable Unavailable ECKERT, E MILAN MD Unavailable Unavailable ECKERT, E MILAN MD Unavailable Unavailable ECKERT, E MILAN MD Unavailable Unavailable ECKERT E MILAN Unavailable Unavailable ECKERT E MILAN MD Unavailable Unavailable ECKERT, E MILAN MD Unavailable Unavailable ECKERT, E MILAN MD Unavailable Unavailable ECKERT E MILAN MD Unavailable Unavailable ECKERT, E MILAN MD Unavailable Unavailable ECKERT, E MILAN Unavailable Unavailable ECKERT, E MILAN Unavailable Unavailable ECKERT, E MILAN MD Unavailable Unavailable ECKERT, E MILAN MD Unavailable Unavailable ECKERT, E MILAN MD Unavailable Unavailable ECKERT, E MILAN MD Unavailable Unavailable ECKERT, E MILAN MD Unavailable Unavailable ECKERT, E MILAN MD Unavailable Unavailable ECKERT, E MILAN MD Unavailable Unavailable ECKERT, E MILAN MD Unavailable Unavailable ECKERT, E MILAN MD Unavailable Unavailable ECKERT, E MILAN MD Unavailable Unavailable ECKERT, E MILAN MD Unavailable Unavailable ECKERT, E MILAN MD Unavailable Unavailable ECKERT, E MILAN MD Unavailable Unavailable ECKERT, E MILAN MD Unavailable Unavailable ECKERT, E MILAN MD Unavailable Unavailable ECKERT, E MILAN MD Unavailable Unavailable ECKERT, E MILAN MD Unavailable Unavailable ECKERT, E MILAN MD Unavailable Unavailable ECKERT, E MILAN MD Unavailable Unavailable ECKERT, E MILAN MD Unavailable Unavailable ECKERT, E MILAN MD Unavailable Unavailable ECKERT, E MILAN MD Unavailable Unavailable ECKERT, E MILAN MD Unavailable Unavailable ECKERT, E MILAN MD Unavailable Unavailable ECKERT, E MILAN MD Unavailable Unavailable ECKERT, E MILAN MD Unavailable Unavailable ECKERT, E MILAN MD Unavailable Unavailable ECKERT, E MILAN MD Unavailable Unavailable ECKERT, E MILAN MD Unavailable Unavailable ECKERT, E MILAN MD Unavailable Unavailable ECKERT, E MILAN MD Unavailable Unavailable ECKERT, E MILAN MD Unavailable Unavailable ECKERT E MILAN MD Unavailable Unavailable ECKERT, E MILAN MD Unavailable Unavailable ECKERT, E MILAN MD Unavailable Unavailable ECKERT, E MILAN MD Unavailable Unavailable ECKERT, E MILAN MD Unavailable Unavailable ECKERT, E MILAN MD Unavailable Unavailable ECKERT, E MILAN MD Unavailable Unavailable ECKERT E MILAN MD Unavailable Unavailable ECKERT E MILAN MD Unavailable Unavailable ECKERT, E MILAN MD Unavailable Unavailable ECKERT, E MILAN MD Unavailable Unavailable ECKERT, E MILAN MD Unavailable Unavailable ECKERT, E MILAN MD Unavailable Unavailable ECKERT, E MILAN MD Unavailable Unavailable ECKERT, E MILAN MD Unavailable Unavailable ECKERT E MILAN MD Unavailable Unavailable ECKERT, E MILAN MD Unavailable Unavailable ECKERT, E MILAN MD Unavailable Unavailable ECKERT, E MILAN MD Unavailable Unavailable ECKERT, E MILAN MD Unavailable Unavailable ECKERT, E MILAN MD Unavailable Unavailable ECKERT, E MILAN MD Unavailable Unavailable ECKERT E MILAN MD Unavailable Unavailable ECKERT E MILAN MD Unavailable Unavailable ECKERT E MILAN MD Unavailable Unavailable ECKERT, E MILAN MD Unavailable Unavailable ECKERT, E MILAN MD Unavailable Unavailable ECKERT, E MILAN MD Unavailable Unavailable ECKERT, E MILAN MD Unavailable Unavailable ECKERT, E MILAN MD Unavailable Unavailable ECKERT, E MILAN MD Unavailable Unavailable ECKERT, E MILAN MD Unavailable Unavailable ECKERT, E MILAN MD Unavailable Unavailable ECKERT, E MILAN MD Unavailable Unavailable ECKERT, E MILAN MD Unavailable Unavailable ECKERT, E MILAN MD Unavailable Unavailable ECKERT, E MILAN MD Unavailable Unavailable ECKERT, E MILAN MD Unavailable Unavailable ECKERT, E MILAN MD Unavailable Unavailable ECKERT, E MILAN MD Unavailable Unavailable Re-disclosure Warning The records that you are about to access may contain information from federally-assisted alcohol or drug abuse programs. If such information is present, then the following federally mandated warning applies: This information has been disclosed to you from records protected by federal confidentiality rules (42 CFR part 2). The federal rules prohibit you from making any further disclosure of this information unless further disclosure is expressly permitted by the written consent of the person to whom it pertains or as otherwise permitted by 42 CFR part 2. A general authorization for the release of medical or other information is NOT sufficient for this purpose. The Federal rules restrict any use of the information to criminally investigate or prosecute any alcohol or drug abuse patient.The records that you are about to access may contain highly sensitive health information, the redisclosure of which is protected by Article 27-F of the [facility] Public Health law. If you continue you may have access to information: Regarding HIV / AIDS; Provided by facilities licensed or operated by the [facility] Office of Mental Health; or Provided by the [facility] Office for People With Developmental Disabilities. If such information is present, then the following [facility] mandated warning applies: This information has been disclosed to you from confidential records which are protected by state law. State law prohibits you from making any further disclosure of this information without the specific written consent of the person to whom it pertains, or as otherwise permitted by law. Any unauthorized further disclosure in violation of state law may result in a fine or fci sentence or both. A general authorization for the release of medical or other information is NOT sufficient authorization for further disc losure. 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 -NO packet given Pt Bill of Rights, Priv Prac, Ad Dir completed packet given Pt Bill of Rights, Priv Prac, Ad Dir [facility] ([facility]) Note: Pt declined AD packet Ebola Screening Performed completed Ebol a Screening Performed [facility] ([facility]) Note: Within the last month, have you tr aveled outside of the [place]? -NO Ebola Screening Performed completed Ebol a Screening Performed [facility] ([facility]) Note: Within the last month, have you tr aveled outside of the [place]? -NO Family History Family Member Name Family Member Gender Family Member Status Date o f Status Description Data Source(s) Unknown Male Problem [facility] ([facility]) Encounters Encounter Providers Location Date Indications Data Source(s ) Outpatient<td ID="encounterTypeDescripti onID0">Diabetes Follow-up</td><td>Felicity Godinez NP</td><td>[facility]</td><td>03/07/2020</td><td><content ID="encounterDiagnosisID0-0"> Hypertension (systemic)</content>, <content ID="encounterDiagnosisID0- 1">Obesity</content>, <content ID="encounterDiagnosisID0- 2">Hyperlipidemia</content>, <content ID="encounterDiagnosisID0-3">Diabetes Mellitus</content>, <content ID="encounterDiagnosisID0-4">Acute Myocardial Infarction Non-st Elevation</content></td> Attender: FELICITY RÍOS NP [facility] 03/07/2020 01:36:00 PM EST - 03/07/2020 02:39:35 PM EST Acute Myocardial Infarction Non-st ElevationHyperlipidemiaHypertension (systemic)ObesityDiabetes Mellitus [facility] Acute Myocardial Infarction Non-st Deane tion Hyperlipidemia Hypertension (systemic) Obesity Diabetes Mellitus Outpatient Attender: MILAN ECKERT MD [facility] [place] 01/29/2020 01:45:00 PM EST [facility] Outpatient Attender: MILAN ECKERT MD [facility] [place] 12/27/2019 04:11:00 AM EDT [facility] Outpatient Attender: MILAN ECKERT MD [facility] [place] 12/26/2019 03:18:00 AM EDT [facility] Inpatient Attender: MILAN ECKERT MDAttender: ER PHYSICIA N 12/25/2019 10:24:23 AM EDT [facility] [place] [facility] Inpatient Attender: MILAN ECKERT MDA ttender: ER PHYSICIANAdmitter: MILAN ECKERT MD 12/25/2019 09:59:00 AM EDT - 12/27/2019 02:49:00 PM EDT ACUTE CORONARY SYNDROME [facility] ACUTE CORONARY SYNDROME Patient discharged. Emergency Attender: ER PHYSICIAN 12/25/2019 09:59:00 AM E DT [facility] Outpatient Attender: MILAN ECKERT MD [facility] [place] 12/25/2019 03:20:00 AM EDT [facility] OutpatientOFFICE/OUTPATIENT VISIT, EST 11/24/2019 Attender: ROSENDO BEGUM 11/24/2019 06:10:41 PM EDT 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[facility]) Unknown<td ID="encounterTypeDescriptionI D1">AHR</td><td>Felicity Godinez NP</td><td>[facility]</td><td>11/02/2019</td><td><content ID="encounterDiagnosisID1-0">Visit For: Routine Adult H&p Without Abnormal Findings</content>, <content ID="encounterDiagnosisID1-1">Diabetes Mellitus</content>, <content ID="encounterDiagnosisID1-2">Hyperlipoproteinemia Mixed</content>, <content ID="encounterDiagnosisID1-3">Obesity</content></td> Attender: FELICITY RÍOS NP [facility] 11/02/2019 11: 37:00 AM EDT - 11/02/2019 12:52:34 PM EDT Visit For: Routine Adult H&p Without Abn ormal FindingsVisit For: Routine Adult H&p Without Abnormal FindingsHyperlipoproteinemia MixedHyperlipoproteinemia MixedObesityObesityDiabetes MellitusDiabetes Mellitus [facility] ([facility]) Visit For: Routine Adult H&p Without Abn ormal Findings Visit For: Routine Adult H&p Without Abn ormal Findings Hyperlipoproteinemia Mixed Hyperlipoproteinemia Mixed Obesity Obesity Diabetes Mellitus Diabetes Mellitus Outpatient<td ID="encounterTypeDescripti onID2">Walk-In</td><td>Felicity Godinez NP</td><td>[facility]</td><td>04/13/2019</td><td><content ID="encounterDiagnosisID2-0">Lower Respiratory Tract Infection Acute</content>, <content ID="encounterDiagnosisID2-1">Sinusitis Acute</content>, <content ID="encounterDiagnosisID2-2">Diabetes Mellitus</content></td> Attender: FELICITY RÍOS NP [facility] 04/13/2019 08:23:00 AM EST - 04/13/2019 09:44:31 AM EST Sinusitis AcuteLower Respiratory Tract I nfection AcuteSinusitis AcuteLower Respiratory Tract Infection AcuteSinusitis AcuteLower Respiratory Tract Infection AcuteDiabetes MellitusDiabetes MellitusDiabetes Mellitus [facility] ([facility]) Sinusitis Acute Lower Respiratory Tract Infection Acute Sinusitis Acute Lower Respiratory Tract Infection Acute Sinusitis Acute Lower Respiratory Tract Infection Acute Diabetes Mellitus Diabetes Mellitus Diabetes Mellitus OutpatientOFFICE/OUTPATIENT VISIT, EST 04/04/2019 Attender: YOGESH HAJI NP 04/04/2019 04:42:33 PM EST 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[facility]) Outpatient<td ID="encounterTypeDescripti onID2">Diabetes Follow-up</td><td>Felicity Godinez NP</td><td>[facility]</td><td>03/03/2019</td><td><content ID="encounterDiagnosisID2-0"> Hypertension (systemic)</content>, <content ID="encounterDiagnosisID2- 1">Obesity</content>, <content ID="encounterDiagnosisID2- 2">Hyperlipidemia</content>, <content ID="encounterDiagnosisID2-3">Other Specified Family Circumstances</content>, <content ID="encounterDiagnosisID2- 4">Peripheral Neuropathy</content>, <content ID="encounterDiagnosisID2- 5">Diabetes Mellitus</content></td> 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 [facility] 03/03/2019 12:25:00 PM EST - 03/03/2019 01:40:07 PM ES T Peripheral NeuropathyOther Specified Family CircumstancesHyperlipidemiaHypertension (systemic)Peripheral NeuropathyOther Specified Family CircumstancesHyperlipidemiaHypertension (systemic)Peripheral NeuropathyOther Specified Family CircumstancesHyperlipidemiaHypertension (systemic)Peripheral NeuropathyOther Specified Family CircumstancesHyperlipidemiaHypertension (systemic)ObesityObesityObesityObesityDiabetes MellitusDiabetes MellitusDiabetes MellitusDiabetes Mellitus [facility] Peripheral Neuropathy Other Specified Family Circumstances Hyperlipidemia Hypertension (systemic) Peripheral Neuropathy Other Specified Family Circumstances Hyperlipidemia Hypertension (systemic) Peripheral Neuropathy Other Specified Family Circumstances Hyperlipidemia Hypertension (systemic) Peripheral Neuropathy Other Specified Family Circumstances Hyperlipidemia Hypertension (systemic) Obesity Obesity Obesity Obesity Diabetes Mellitus Diabetes Mellitus Diabetes Mellitus Diabetes Mellitus Outpatient 09/27/2016 01:56:15 PM EDT 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 This is one of two codes replacing CVX 15, which is being retired. 03/07/2020 02:34:00 PM EST completed Influenza, seasonal, injectable 2 03/07/2020 Upper Left Arm Complete (Administered) [facility] ([facility]) IIV3. This is one of two codes replacing CVX 15, which is being retired. 03/03/2019 01:40:00 PM EST completed Influenza, seasonal, injectable 1 03/03/2019 Right Deltoid Complete (Administered) [facility] ([facility]) Note: pt knows to call with any complica tions no matter time of day Medications Medication Brand Name Start Date Product Form Dose Route Admi nistrative Instructions Pharmacy Instructions Status Indications Reaction Description Data Source(s) Aspirin 81 MG Delayed Release Oral Table t Aspirin 81 MG Oral Tablet Delayed Release Aspirin 81 MG Oral Tablet Delayed Release 03/07/2020 12:00:00 AM EST active aspirin 81 MG Delayed Re lease Oral Tablet K[facility] ([facility]) OneTouch Ultra In Vitro Strip OneTouch Ultra In Vitro Strip 02/19/2020 12:00:00 AM EST active OneTouch Ultra GR EENWAY ([facility]) Ticagrelor 90 MG Oral Tablet [Brilinta] Brilinta 90 MG Oral Tablet Brilinta 90 MG Oral Tablet 02/12/2020 12:00:00 AM EST act heide ticagrelor 90 MG Oral Tablet [Brilinta] KAMRYN ([facility]) Basaglar Kwikpen Basaglar Kwikpen 01/29/2020 12:00:00 AM EST active [facility]) atorvastatin 80 MG Oral Tablet Atorvastatin Calcium 01/29/2020 1 2:00:00 AM EST ORAL active [facility] ( [facility]) 5 Day 01/29/2020 12:00:00 AM EST completed [facility] ([facility]) Aspirin 81 MG Delayed Release Oral Tablet Aspirin 81 2019 12:00:00 AM EST ORAL active [facility] ( [facility]) 24 HR metoprolol succinate 50 MG Extended Release Oral Tablet Metoprolol Succinate ER 01/29/2020 12:00:00 AM EST ORAL active [facility] ([facility]) Ticagrelor 90 MG Oral Tablet [Brilinta] Brilinta 01/29/2020 12:00:0 0 AM EST ORAL active [facility] ([facility]) 3 ML Insulin, Aspart, Human 100 UNT/ML Pen Injector [NovoLog ] Novolog Flexpen 01/29/2020 12:00:00 AM EST active [facility] ([facility]) Metoprolol Succinate 50 MG Oral Capsule ER 24 Hour Spr inkle Metoprolol Succinate 50 MG Oral Capsule ER 24 Hour Sprinkle 12/27/2019 12:00:00 AM EDT active 24 HR metoprolol succinate 50 MG Extended Release Oral Capsule [place] ([facility]) atorvastatin 80 MG Oral Tablet Atorvastatin Calcium 80 MG Oral Tablet Atorvastatin Calcium 80 MG Oral Tablet 12/26/2019 12:00:00 AM EDT active atorvastatin 80 MG Oral Tablet [facility] ([facility]) Ketorolac Tromethamine 10 MG Oral Tablet ketorolac 10 mg tablet ketorolac 10 mg tablet 11/24/2019 12:00:00 AM EDT 1 completed , Take 1 tablet orally Three times a day as needed 11/24/2019 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[facility]) Lidocaine Hydrochloride 0.05 MG/MG Trans dermal Patch [Lidoderm] Lidoderm 5 % topical patch Lidoderm 5 % topical patch 11/24/2019 12:00:00 AM EDT 1 completed , Apply 1 patch topi dick Every day on 12 as neede 11/24/2019 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[facility]) PX Mini Pen Mccrory 31G X 5 MM Miscellaneous PX Mini P en Mccrory 31G X 5 MM Miscellaneous 11/03/2019 12:00:00 AM EDT acti ve PX Mini Pen Mccrory [facility] ([facility]) OneTouch Delica Lancets 33G Miscellaneous OneTouch Del ica Lancets 33G Miscellaneous 11/03/2019 12:00:00 AM EDT 1 acti ve OneTouch Delica Lancets 33G [facility] ([facility]) PX Mini Pen Mccrory 31G X 5 MM MISC PX Mini Pen Mccrory 31G X 5 MM MISC 11/03/2019 12:00:00 AM EDT completed PX Mini Pen Mccrory [facility] ([facility]) PX Mini Pen Mccrory 31G X 5 MM MISC PX Mini Pen Mccrory 31G X 5 MM MISC 11/03/2019 12:00:00 AM EDT active PX Mini Pen Mccrory [facility] ([facility]) OneTouch Ultra In Vitro Strip OneTouch Ultra In Vitro Strip 11/03/2019 12:00:00 AM EDT aborted OneTouch Ultra G REENWAY ([facility]) Basaglar KwikPen 100 UNIT/ML SC SOPN Basaglar KwikPen 100 UN IT/ML SC SOPN 11/03/2019 12:00:00 AM EDT 1 active Sensor 3 ML insulin glargine 100 UNT/ML Pen Injector [Basaglar] [facility] ([facility]) PX Mini Pen Mccrory 31G X 5 MM Miscellaneous PX Mini P en Mccrory 31G X 5 MM Miscellaneous 11/03/2019 12:00:00 AM EDT comp leted PX Mini Pen Mccrory [facility] ([facility]) OneTouch Delica Lancets 33G MISC OneTouch Delica Lancets 33G MISC 11/03/2019 12:00:00 AM EDT 1 active OneTouch Delica Lancets 33G [facility] ([facility]) OneTouch Ultra STRP OneTouch Ultra STRP 11/03/2019 12:00:00 AM E DT active OneTouch Ultra [facility] ( [facility]) Basaglar KwikPen 100 UNIT/ML Subcutaneous Solution Pen -injector Basaglar KwikPen 100 UNIT/ML Subcutaneous Solution Pen-injector 11/03/2019 12:00:00 AM EDT 1 active Sensor 3 ML insulin glargine 100 UNT/ML Pen Injector [Basaglar] [facility] ([facility]) Basaglar KwikPen 100 UNIT/ML Subcutaneous Solution Pen -injector Basaglar KwikPen 100 UNIT/ML Subcutaneous Solution Pen-injector 10/17/2019 12:00:00 AM EDT 1 aborted Sensor 3 ML in sulin glargine 100 UNT/ML Pen Injector [Basaglar] [facility] ([facility]) 3 ML Insulin, Aspart, Human 100 UNT/ML P en Injector [NovoLog] NovoLOG FlexPen 100 UNIT/ML Subcutaneous Solution Pen-injector NovoLOG FlexPen 100 UNIT/ML Subcutaneous Solution Pen-injector 07/21/2019 12:00:00 AM EDT active 3 ML insulin aspart, human 100 UNT/ML Pe n Injector [NovoLog] [facility] ([facility]) 3 ML Insulin, Aspart, Human 100 UNT/ML P en Injector [NovoLog] NovoLOG FlexPen 100 UNIT/ML SC SOPN NovoLOG FlexPen 100 UNIT/ML SC SOPN 07/21/2019 12:00:0 0 AM EDT aborted 3 ML ins ulin aspart, human 100 UNT/ML Pen Injector [NovoLog] [facility] ([facility]) 3 ML Insulin, Aspart, Human 100 UNT/ML P en Injector [NovoLog] NovoLOG FlexPen 100 UNIT/ML Subcutaneous Solution Pen-injector NovoLOG FlexPen 100 UNIT/ML Subcutaneous Solution Pen-injector 06/29/2019 12:00:00 AM EDT aborted 3 ML insulin aspart, human 100 UNT/ML Pe n Injector [NovoLog] [facility] ([facility]) PX Mini Pen Mccrory 31G X 5 MM Miscellaneous PX Mini P en Mccrory 31G X 5 MM Miscellaneous 06/05/2019 12:00:00 AM EDT abor demetrius PX Mini Pen Mccrory [facility] ([facility]) Basaglar KwikPen 100 UNIT/ML Subcutaneous Solution Pen -injector Basaglar KwikPen 100 UNIT/ML Subcutaneous Solution Pen-injector 05/02/2019 12:00:00 AM EST 1 aborted Sensor 3 ML in sulin glargine 100 UNT/ML Pen Injector [Basaglar] [facility] ([facility] OneTouch Ultra Blue In Vitro Strip OneTouch Ultra Blue In Vi tro Strip 04/25/2019 12:00:00 AM EST aborted OneTou ch Ultra Blue [facility] ([facility]) OneTouch Ultra Blue STRP OneTouch Ultra Blue STRP 03/30 12:00:00 AM EST aborted OneTouch Ultra B lue [facility] ([facility]) OneTouch Ultra Blue In Vitro Strip OneTouch Ultra Blue In Vi tro Strip 04/20/2019 12:00:00 AM EST aborted OneTou ch Ultra Blue [facility] ([facility]) Amoxicillin 875 MG Oral Tablet Amoxicillin 875 MG Oral Table t 04/13/2019 12:00:00 AM EST 1 aborted amoxici llin 875 MG Oral Tablet [facility] ([facility]) PX Mini Pen Mccrory 31G X 5 MM Miscellaneous PX Mini P en Mccrory 31G X 5 MM Miscellaneous 01/16/2019 12:00:00 AM EDT abor demetrius PX Mini Pen Mccrory [facility] ([facility]) OneTouch Ultra Blue In Vitro Strip OneTouch Ultra Blue In Vi tro Strip 08/17/2018 12:00:00 AM EDT aborted OneTou ch Ultra Blue [facility] ([facility]) Basaglar KwikPen 100UNIT/ML Subcutaneous Solution Pen- injector Basaglar KwikPen 100UNIT/ML Subcutaneous Solution Pen-injector 08/16/2018 12:00:00 AM EDT 1 aborted Sensor 3 ML insulin glarg ine 100 UNT/ML Pen Injector [Basaglar] [facility] ([facility]) OneTouch Ultra Blue STRP OneTouch Ultra Blue STRP 07/28 12:00:00 AM EDT aborted OneTouch Ultra B lue [facility] ([facility]) 3 ML Insulin, Aspart, Human 100 UNT/ML P en Injector [NovoLog] NovoLOG FlexPen 100UNIT/ML Subcutaneous Solution Pen-injector NovoLOG FlexPen 100UNIT/ML Subcutaneous Solution Pen-injector 06/07/2018 12:00:00 AM EDT aborted 3 ML insulin aspart, human 100 UNT/ML Pe n Injector [NovoLog] [facility] ([facility]) latanoprost 0.05 MG/ML Ophthalmic Soluti on Latanoprost 0.005% Ophthalmic Solution Latanoprost 0.005% Ophthalmic Solution 08/13/2017 12:00:00 AM EDT 1 aborted latanoprost 0.05 MG/ ML Ophthalmic Solution [facility] ([facility]) OneTouch Club Lancets Fine Pt Miscellaneous OneTouch C lub Lancets Fine Pt Miscellaneous 06/09/2017 12:00:00 AM EDT 1 abor demetrius OneTouch Club Lancets Fine Pt [facility] ([facility]) Insulin Syringe 31G X 5/16"1 ML Miscellaneous Insulin Syringe 31G X 5/16"1 ML Miscellaneous 05/24/2017 12:00:00 AM EST aborted Insulin Syringe [facility] ([facility]) Insurance Providers Payer name Policy type / Coverage type Policy ID Covered alliance party ID Covered alliance party's relationship to burr Policy Burr Plan Information Medicaid of [place] Other 05 Self 05 [employer] Other 0 Self 0 MEDICAID M [id number] Self [id number] MEDICARE RAJAT [id number] S [id number] [id number] MEDICAID HEA [id number] S [id number] WELLCARE HEA [id number] S [id number] EMEDNY [id number] SP [id number] WELLCARE [id number] SP [id number] ID IDENTIFICATION [id number] Other In surance [id number] Medicaid - [place] [id number] Medica id [id number] WELLCARE [id number] Commercial Insurance [id number] TODAYS OPTIONS [id number] Commercial Insurance [id number] Medicaid of [place] Other 05 Self 05 [employer]. Other 0 Self 0 [place] Other 05 Self 05 [employer] Other 0 Self 0 MEDICAID [id number] SP [id number] [place] of [place] Other 05 Self 05 [employer] Other 0 Self 0 [place] of [place] Other 05 Self 05 [employer]. Other 0 Self 0 MEDICARE [id number] SP [id number] MEDICARE [id number] SP [id number] A [place] of [place] Other 05 Self 05 [employer] Other 0 Self 0 [place] Other 05 Self 05 MEDICAID [facility] [id number] SP [id number] TODAYS OPTIONS MCR [id number] SP [id number] TODAYS OPTIONS MCR [id number] SP [id number] MEDICAID [facility] [id number] SP [id number] AMER PROG TODAYS OPTIONS G [id number] Self [id number] MEDICARE A [id number] Self [id number] A [place] Other 05 Self 05 [place] Other 05 Self 05 [place] Other 05 Self 05 MEDICARE [id number] SP [id number] A Medicaid - [employer] Marla [id number] Medica id [id number] Medicare [id number] Medicare [id number] A Medicaid [place] Medigap Part B [id number] Self [id number] Medicare Dme Supplies Medigap Part B [id number] Self [id number] Medicare [facility] Medicare Primary [id number] Self [id number] [place] of [place] Other 05 Self 05 Medicare Part A [facility] Other 0 Self 0 Medicaid - [employer] Marla [id number] Medica id [id number] Medicare [id number] Medicare [id number] A Medicaid [place] Medigap Part B [id number] Self [id number] Medicare Dme Supplies Medigap Part B [id number] Self [id number] [place] Primary [id number] Self [id number] [place]ig[place] Part B [id number] Self [id number] Medicare Dme Supplies Medigap Part B [id number] Self [id number] [place] Primary [id number] Self [id number] [place] Medigap Part [place] [id number] Self [id number] Medicare Dme Supplies Medigap Part B [id number] Self [id number] Medicare [facility] Medicare Primary [id number] Self [id number] [place] of [place] Other 05 Self 05 Medicare Part A of [place] Other 0 Self 0 [place] Other 05 Self 05 Medicare Part [place] of [place] Other 0 Self 0 [place] Other 05 Self 05 Medicare Part [place] of [place] Other 0 Self 0 [place] Medigap Part B [id number] Self [id number] Medicare [facility] Medicare Primary [id number] Self [id number] MEDICAID M [id number] S [id number] MEDICARE C [id number] S [id number] A MEDICARE [id number] SP [id number] A MEDICAID W [id number] S [id number] MEDICARE OUTPATIENT M [id number] S [id number] MEDICARE [id number] SP [id number] SELF PAY UNAVAILABLE SP UNAVAILA BLE MEDICAID [facility] [id number] SP [id number] A [id number] Problems, Conditions, and Diagnoses Code Display Name Description Problem Type Effective Dates Data Source(s) I21.4 Acute Myocardial Infarction Non-st Deane tion Acute Myocardial Infarction Non-st Elevation Problem 03/07/2020 12:00:00 AM EST [facility] [id number] Ischemic heart disease Ischemic heart disease Problem 12/26/2019 12:00:00 AM EDT MEDENT ([facility]) [id number] Type 2 diabetes mellitus Type 2 diabetes mellitus Prob geoff 12/26/2019 12:00:00 AM EDT [facility] ([facility]) R07.89 Other chest pain Other chest pain (R07.89) 11/24/2019 [id number] 11/24/2019 06:10:41 PM EDT 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[facility]) M79.10 Diffuse muscle tenderness Myalgia, unspecified s ite (M79.10) 11/24/2019 [id number] 04/04/2019 04:42:33 PM EST - 11/24/2019 12:00:00 AM ED T 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[facility]) J02.9 Acute pharyngitis, unspecified Acute pha ryngitis, unspecified (J02.9) 11/24/2019 [id number] 04/04/2019 04:42:33 PM EST - 11/24/2019 12:00:00 AM EDT 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[facility]) R42 Dizziness and giddiness Dizziness and giddiness (R42) 11/24/2019 [id number] 10/25/2017 04:38:24 PM EDT - 11/24/2019 12:00:00 AM EDT 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[facility]) M25.511 Pain in right shoulder Pain in right shoulder (M 25.511) 11/24/2019 [id number] 05/25/2017 03:34:54 PM EST - 11/24/2019 12:00:00 AM ED T 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[facility]) S52.615A Nondisplaced fracture of lef t ulna styloid process, initial encounter for closed fracture Nondisplaced fracture of left ulna stylo id process, initial encounter for closed fracture (S52.615A) 11/24/2019 [id number] 04/2016 01:49:24 PM EDT - 11/24/2019 12:00:00 AM EDT 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[facility]) M25.532 Pain in left wrist Pain in left wrist (M25.532) 020 [id number] 09/27/2016 01:49:24 PM EDT - 11/24/2019 12:00:00 AM EDT 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[facility]) Surgeries/Procedures Procedure Description Date Indications Data Source(s) Influenza virus vaccine, preservative free, 6 months a nd up Influenza virus vaccine, preservative free, 6 months and up 03/07/2020 12:00:00 AM EST K[facility] ([facility]) Electrocardiogram Complete 01/29/2020 12:00:00 AM EST [facility] ([facility]) Electrocardiogram Interpretation & Report Only 12:00:00 AM EDT [facility] Echocardiography, Tranthoracic Real-Time Image Documentation 12/26/2019 12:00:00 AM EDT [facility] ([facility]) Percutaneous Transcatheter Placement Of Intracoronary Stent 12/25/2019 12:00:00 AM EDT [facility] ([facility]) Coronary Angiography With Left Heart Catheterization 12/25/2019 12:00:00 AM EDT [facility] ([facility]) Electrocardiogram Interpretation & Report Only 020 12:00:00 AM EDT [facility] SVC PRV OFFICE REG SCHEDD EVN WKEND/HOLIDAY HRS 2019 12:00:00 AM EDT 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[facility]) Annual wellness visit, includes a person alized prevention plan of service (pps), subsequent visit AHR -Subsequent Annual Wellness Visit 11/02/2019 12:00 :00 AM EDT KAM[facility]N ([facility]) COLLECTION VENOUS BLOOD VENIPUNCTURE 04/04/2019 12:00: 00 AM EST 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[facility]) IAADIADOO STREPTOCOCCUS GROUP A 04/04/2019 12:00:00 AM EST 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[facility]) IAADIADOO INFLUENZA 04/04/2019 12:00:00 AM EST 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[facility]) ESR 04/04/2019 04/04/2019 12:00:00 AM EST C HARTMAKER ([facility]) THROAT PO CULTURE 04/04/2019 04/04/2019 12:00:00 AM EST 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[facility]) Collected Date 04/04/2019 @ 1726 04/04/2019 04/04/2019 1 2:00:00 AM EST 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[facility]) CBCDIFF 04/04/2019 04/04/2019 12:00:00 AM EST 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[facility]) COMPREHENSIVE METABOLIC PANEL 04/04/2019 12:00:[address] 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[facility]) HEMOGLOBIN GLYCOSYLATED A1C 04/04/2019 12:00:00 AM EST 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[facility]) Administration of influenza virus vaccine Administrati on of Influenza virus vaccine (distinct separate procedure) 03/03/2019 12:00:00 AM EST [facility] Hemoglobin; Glycated A1c (QW) Hemoglobin; Glycated A1c (QW) 03/03/2019 12:00:00 AM EST [facility] ([facility]) Flu, 3 Years and Up (adults included) (distinct separa te procedure) Flu, 3 Years and Up (adults included) (distinct separate procedure) 03/03/2019 12:00:00 AM EST K[facility]N ([facility]) Flu, 6months and up, .5ml Flu, 6months and up, .5ml 03/03/2019 1 2:00:00 AM EST K[facility]N ([facility]) Results ID Date Data Source [id number] 12/27/2019 12:39:50 PM EDT [facility] Name Value Range Interpretation Code Description Data Mayte rce(s) Supporting Document(s) POC GLUCOSE 164 mg/dL (70-99) H [facility] NOTIFIED NURSEPERFORMED BY CLINICAL S TAFF ID Date Data Source [id number] 12/27/2019 07:54:18 AM EDT [facility] Name Value Range Interpretation Code Description Data Mayte rce(s) Supporting Document(s) POC GLUCOSE 138 mg/dL (70-99) H [facility] PERFORMED BY CLINICAL STAFF ID Date Data Source [id number] 12/27/2019 06:54:10 AM EDT [facility] Name Value Range Interpretation Code Description Data Mayte rce(s) Supporting Document(s) SODIUM 142 mmol/L (136-145) [facility] POTASSIUM 3.8 mmol/L (3.6-5.2) [facility] CHLORIDE 109 mmol/L (100-108) H [facility] CO2 26 mmol/L (22-31) [facility] ANION GAP 7 mmol/L (7-16) [facility] UREA NITROGEN 15 mg/dL (7-24) [facility] CREATININE 0.80 mg/dL (0.60-1.00) [facility] BUN/CREAT RATIO 18.8 RATIO (10.0-20.0) [facility] GLUCOSE 108 mg/dL (70-99) H [facility] CALCIUM 8.7 mg/dL (8.4-10.2) [facility] GFR >60 ml/min/1.73m2 (>59) [facility] GFR ( AMER) >60 ml/min/1.73m2 (>59) [facility] GFR INTERPRETATION [facility] --NORMAL KIDNEY FUNCTION OR MILD DISEASE - GFR >OR= 60CHRONIC KIDNEY DISEASE - GFR 15 - 59RENAL FAILURE - GFR <15 Est. GFR calculation based on the MDRDstudy equation, which assumes a steadystate for creatinine. Est. GFR should notbe used for medication dosing. ID Date Data Source [id number] 12/26/2019 09:44:44 PM EDT [facility] Name Value Range Interpretation Code Description Data Mayte rce(s) Supporting Document(s) POC GLUCOSE 152 mg/dL (70-99) H [facility] NOTIFIED NURSEPERFORMED BY CLINICAL S TAFF ID Date Data Source [id number] 12/26/2019 05:56:07 PM EDT [facility] Name Value Range Interpretation Code Description Data Mayte rce(s) Supporting Document(s) POC GLUCOSE 320 mg/dL (70-99) H [facility] NOTIFIED NURSEPERFORMED BY CLINICAL S TAFF ID Date Data Source [id number] 12/26/2019 01:54:52 PM EDT [facility] Name Value Range Interpretation Code Description Data Mayte rce(s) Supporting Document(s) POC GLUCOSE 230 mg/dL (70-99) H [facility] PERFORMED BY CLINICAL STAFF ID Date Data Source [id number] 12/26/2019 01:03:17 PM EDT [facility] Name Value Range Interpretation Code Description Data Mayte rce(s) Supporting Document(s) POC GLUCOSE 265 mg/dL (70-99) H [facility] PERFORMED BY CLINICAL STAFF ID Date Data Source [id number] 12/26/2019 11:44:17 AM EDT [facility] Name Value Range Interpretation Code Description Data Mayte rce(s) Supporting Document(s) TROPONIN I <0.05 ng/mL (<0.05) [facility] [place] Less than 0.05: Myocardial injury unlike lyGreater than or equal to 0.05: Highly suggestive of myocardial injuryCorrelation with rise and/or fall ofserial troponins, clinical symptomsand ECG changes is necessary. ID Date Data Source [id number] 12/26/2019 07:51:42 AM EDT [facility] Name Value Range Interpretation Code Description Data Mayte rce(s) Supporting Document(s) POC GLUCOSE 121 mg/dL (70-99) H [facility] PERFORMED BY CLINICAL STAFF ID Date Data Source [id number] 12/26/2019 09:56:07 AM EDT [facility] Name Value Range Interpretation Code Description Data Mayte rce(s) Supporting Document(s) CHOLESTEROL @ 220 mg/dL (0-200) H [facility] TRIGLYCERIDE @ 145 mg/dL (30-200) [facility] HDL CHOLESTEROL @ 39 mg/dL (>40) L [facility] PER NCEP ATP III GUIDELINES:RESULTS LOWE R THAN 40 MG/DL ARE SUGGESTIVEOF INCREASED RISK FOR CORONARY ARTERYDISEASE. RESULTS > OR = TO 60 MG/DL ARECONSIDERED A NEGATIVE RISK FACTOR. CHOL/HDL RATIO 5.6 RATIO [facility] [place] INTERPRETATION OF CHOL-HDL RATIO CHD RISK FEMALE MALEVERY HIGH >8.3 >14.3HIGH 5.6- 8.3 6.7- 14.3AVERAGE 3.7- 5.6 4.0- 6.7BELOW AVERAGE 2.5- 3.7 2.7- 4.0PROTECTED <2.5 <2.7 LDL CHOL (CALC) 152 mg/dL (<130) H [facility] [place] [facility] PER NCEP ATP III GUIDELINES: OPTIMAL < 100 NEAR OPTIMAL 100 - 129BORDERLINE HIGH 130 - 159 HIGH 160 - 189 VERY HIGH > 189 ID Date Data Source [id number] 12/26/2019 07:30:33 AM EDT [facility] Name Value Range Interpretation Code Description Data Mayte rce(s) Supporting Document(s) TROPONIN I 0.06 ng/mL (<0.05) H [facility] Less than 0.05: Myocardial injury unlike lyGreater than or equal to 0.05: Highly suggestive of myocardial injuryCorrelation with rise and/or fall ofserial troponins, clinical symptomsand ECG changes is necessary. ID Date Data Source [id number] 12/26/2019 07:30:33 AM EDT [facility] Name Value Range Interpretation Code Description Data Mayte rce(s) Supporting Document(s) SODIUM 141 mmol/L (136-145) [facility] POTASSIUM 3.7 mmol/L (3.6-5.2) [facility] CHLORIDE 109 mmol/L (100-108) H [facility] CO2 25 mmol/L (22-31) [facility] ANION GAP 7 mmol/L (7-16) [facility] UREA NITROGEN 14 mg/dL (7-24) [facility] CREATININE 0.79 mg/dL (0.60-1.00) [facility] BUN/CREAT RATIO 17.7 RATIO (10.0-20.0) Lab [facility] GLUCOSE 115 mg/dL (70-99) [facility] CALCIUM 8.7 mg/dL (8.4-10.2) [facility] GFR >60 ml/min/1.73m2 (>59) [facility] GFR ( AMER) >60 ml/min/1.73m2 (>59) [facility] GFR INTERPRETATION [facility] --NORMAL KIDNEY FUNCTION OR MILD DISEASE - GFR >OR= 60CHRONIC KIDNEY DISEASE - GFR 15 - 59RENAL FAILURE - GFR <15 Est. GFR calculation based on the MDRDstudy equation, which assumes a steadystate for creatinine. Est. GFR should notbe used for medication dosing. ID Date Data Source [id number] 12/25/2019 09:31:16 PM EDT [facility] Name Value Range Interpretation Code Description Data Mayte rce(s) Supporting Document(s) POC GLUCOSE 233 mg/dL (70-99) [facility] NOTIFIED NURSEPERFORMED BY CLINICAL S TAFF ID Date Data Source [id number] 12/25/2019 05:37:44 PM EDT [facility] Name Value Range Interpretation Code Description Data Mayte rce(s) Supporting Document(s) POC GLUCOSE 232 mg/dL (70-99) [facility] PERFORMED BY CLINICAL STAFF ID Date Data Source [id number] 12/25/2019 03:59:52 PM EDT [facility] Name Value Range Interpretation Code Description Data Mayte rce(s) Supporting Document(s) POC GLUCOSE 263 mg/dL (70-99) [facility] NOTIFIED PROVIDERNOTIFIED NURSEPERFORMED BY CLINICAL STAFF ID Date Data Source [id number] 12/25/2019 03:20:31 PM EDT [facility] Name Value Range Interpretation Code Description Data Mayte rce(s) Supporting Document(s) POC GLUCOSE 228 mg/dL (70-99) [facility] PERFORMED BY CLINICAL STAFF ID Date Data Source [id number] 12/25/2019 12:35:00 PM EDT [facility] DATE OF EXAM: 12/25/2019CHEST RADIOGRAPH , SINGLE VIEW INDICATION: CHEST PAIN COMPARISON: None. TECHNIQUE: Erect AP Portable view of the chest. FINDINGS: Support devices: None. Lungs/Pleura: Linear atelectasis or scarring at the left lung base. No large effusion or pneumothorax. Cardiomediastinal contours: Within normal limits. Soft tissues/upper abdomen: Within normal limits. Bones: Unremarkable. IMPRESSION: Linear atelectasis versus scarring at the left lung base. Otherwise, no acute findings. Professional interpretation performed at [facility] .End of diagnostic report for accession: [id number] Interpreted: Katy Draper MDTranscribed: 12/25/2019 12:34 PMSigned: 12/25/2019 12:35 PM Katy Draper MD [facility] # [id number] [facility] # [id number] Name Value Range Interpretation Code Description Data Mayte rce(s) Supporting Document(s) ID Date Data Source [id number] 12/25/2019 10:08:22 AM EDT [facility] Name Value Range Interpretation Code Description Data Mayte rce(s) Supporting Document(s) MUSE EKG PDF encoded [facility] QZTQZr5hWnCTGmAao3QdOkEkMXUiMX7dnzm0O9A6jGGpN8GzfCAxv6yfE3PxF2YyJMWpNTIGJQ6KyYCx jb2 [file] //reducing machine operator+Dv37//l/fh//2v//If//qf/tf/8m8bz7//4//61//8H/+Qs7fy4eu/nI9+//vf/5d/uT//lvj7 [file] [id number] ID Date Data Source [id number] 12/25/2019 10:08:22 AM EDT [facility] Name Value Range Interpretation Code Description Data Mayte rce(s) Supporting Document(s) MUSE EKG PDF encoded [facility] BZCNPf3aWxLLUeAqh0MqPqBrKNItMY1qfbh0D3W8gJKxV9LgoABvp3ypT7CfL7QjLBHmWFJXOG6JvIJy jb2 [file] 3pXEC2f5UPv+IY9C76U379W125B895V2/Gyrw8+2un YfvFQrTjLnSHyMmNxiJhx3aTdhz7KLtA/ykQjoFxvhrQKV98MJv/DbwRxBGeJPgSeXaX7Ad9Fs/sAvjj z2uWvZm4N5CPz0ZQRP9sWLj6TOs2KEa1HxLhuntVvkDGWJYtPzVWlWkLvutIImuyhY6nh08619Epu0ux QQ7o7Bi12knfq89i7O9jngfSqlR9fyL/EGZ3uJbhmA eyzOeyzOeyzOeyzOeyzOeywdj+NdRLU8LpZGtNeInUAVRNrX2q8V/gvJfwH+E9URt0+b56v4UuyfcVrE /JGdLQbNX1oaSE+OsTT+H9bJ6poF0kxePRli2vVoQcmyO6m+B9l5l9YlzHLMm9V1RKOzONkOl8md+TJE uBgDTCRSeAWabH5444iY0S7XjT2EVYb+YzVmY7NtEx Yf8L3P8kU+eeG//+v/+p//1F2W/EP/5//9z//x/8h//s///M//95//+3/+6wJ/ixX9z//+i6hA2oo/13 /tAz0UVuoDxdusCgaML5wCWq584iWd8p6/llN20/ogDbqBbqCvH/3JSv/W34r9M4j+RkWnf/RymvBTGv /Sq9I+4H90buS7c0r66yZb9tlxq9DPJd3snH7qu1iH IHhExiPlpUon5V2RR/qWEn6PPi0r8B+5MMUpdmy0HZcAim8+VMNJD/2nGL51/wRUHx9dI+dDxhObj1K7 62r2UDYQzv1c+D7ruB55WgRTOr4puY9Wy3uA5hwN/j4vncEN3pm47gbkIFH7Nj4FA/8L663yo+k/+ok7 ln4K4J/XNFJ6a7H5Ad/172/hVu/du57omB/+3hXUTf /Syb9Pfs/d60ixlVc/5iBz0zI8/fBGcn7M5//6qX1/ilfVu3/mEGOMa8Zwgt6ofHbrVK+76uaoY5f4KQ xkD9661v0zmrE2b0WG2/5Wm3/I1hPO4JQHPd2uwbahuCrcpU/6jufTQQF//MwOz/ejF39+Op2xImcjH4 2uMvdpH23f3snowedf+x0953/0nP/U7/usS48JjFZ1 imfkWMjUGzLjIe7/+6ZBNzxvKGeh/TG7nsQu9Q47UmOdLDkk/J4e8vvI8bbff2M9fe/Lh3/c/oKo1lZ3 /Qyft0y/lqn3x506j31929K624jnE/3dC+X09Ue9cHJv/jTwIx0QrK/QE/Tb3+4L+tyX4FHQ3/OZehPf N1Vb7VhK1haluGRsxDRJgt5Au4hOsD/0GbcZw+cMtH KCePyy008j4ZenPpNzQQPo24c5Y/09+K1Y1QeBh8q24g19w9riHq/pud/5US54a3Q0oC3qtz5KhXY/ne yVFT+B9WGvZ90eP0t9873hpzg/iyrJb4xhY764RuNO/eeil2sRhyarpd28zU+SvTo1Q2S++pVXVvQrr/ pd+8fjC9s84T/U6w/NU1c0H0Ue2X//R39agvpW/tLt AdEI41O//A5YZq9xwOE+CvorI5/biXHPk47AvbumlBqP0dt3P0/qeq9+1e25+tXpyz8+7b/1Kdxh6usx QPhj8pRfsu2AUK/6VX+Lq1/2O6l3EvxdgdNsiSv4bU85BbEisugKlKvUvn447mQwukXFI8/KoptPeoG+ CTkF1b13CxmD6IhkS/AZYuKV1vT72FR5vncs5jzo6x 87i4w3x8lgv/Q/ct77oKo8qa3+tIFu3/9+A0w1YSz8QXyY2bnhWUTsCZ+WV/zTH7u0w3zxI7/NI52EB3 pMtOeg/Ix0CmqFf/6xy00w2g49YRc0Gl963xzgNr3rFO7n539DN49rpOs8JX4cBY8fhbREZWd6U4x0w0 O8/F+SluzqiO1b6ck90x1ksMObHlsW02jW839PZh0g Hwvpr4slb/bRYv60jj7psGObANv/etPTL5/7ZI3s2fA97zjZZCGibmv7j/VPbj6Vyo/pVzUOS7+qb136 MU4V6r55pj3o+Moe/7brxy89wN+1Oz3cv/qy9tl4gsC5i+Moe/c+Y/Rv1g9tSg7YHJd+p//McYNqx32hFF +UxgRxlMf4hG/Zb61JhS0GB0bLQqW/fMv/wEtdc6EX wo/Oe8mp2890pZG81CW34202Np/54B8op9SRt/qu+eoz/cNpgvT6zFO+kEfHdRMx8Jqf+Pt7usZaKM7H c1fkq/KnlS+xXBgYXejozi1Vr0YcvTFiCo6Qw15Yi5iMbxg6t65YsUJnGt51vtotTaeLkE14h64dPeDK emxZcu+0Y9M+s4g60r9t/8KgITBJkclBGqQGR369AW uJ7nKJBaD/qf5Lmav92u1Mn/Ued6I8wlPL31NW/QN+toTeFhLl8Hbbq7rgvSxnDcj2q5269ZnW+0gD7f 476iiAkU0UvaY23Wh4+OasxypIa1qh20eb4Y5ZGv70x073U3/2ilX91/2Uq/tclzaAUhc0COmu8f87+1 A3ilf/aBfZ//5Xwu4waXj3odwu138A3GyOV/+pUJ9+ TPt1Z822/+oix5UcPvr13b3H510gfqijhfBRz05I/7V847uB3/5qe5xNNWpr3+iJq4uLR+nWOeoS8OZo JZdlUGr3Laqya1UnPvzvwXv6j3q+s0Q17p0AiP61yrlq9s/KNixEXvD07IC3ZrpLR+Hrp5mkvrqAM8z7 9NB2MJ6BZub9Tv+eL5rxX2PQsv/sI37e1x/qqFUC0g 0+qgKqTKmfNcC6Eu1M9+aQvjeQXoG/QNeoKeoB/A9C1emjU95oEc2Z/S8H7Oi4qXgPdgSm8v8Hnk8sw1 KHNHvfi+ju/r+L6O7+r2et6o8/i+pV+04qb8Nj92BN1CZx9c/arTGM+iwZshJoqN2Exybv5joT+9adBH w7oWw59EI9+w0q/pMe08Jlr18O08ouMwH/dmw5u++t IMEt6kl6m2CrHIe8IZnflpfJ2RxeF5tE6yGPg7Ljqu0z89KpSS6ZJj7c9D27re5Xh64pDqIwJ1diWzf8 fX9xLD+/bQw9uif3+7kEg28OyCdI3Yk1droAt/3hcq9emjO84ff98+7yWwpTfit92nCpCM+p5+5dg37p 0Nlp0P8NrP/qtffemR/5tTc8owW3TU4mJDe962wcc/ +lXXe/Wrbs/Vr7qdZ+rf32rGme01Z/YcK/sI51fev2m8iirWPsyYDcyMK+wbq+xXb/p7fsF+tWC/WmW/ udHgZ8j+hMB8U21ocP/df3A98/+uZ/4v6ru0h1C+uLov68v9ep0w6/8re3oP3qWv55JxSP+t0q+qLhn7 qag2gih98PNBsNuCRUEF2PDkmP/NIYF4wPqGp+D5je r99UnoD+0/M1TwaK55slbz88bI/Jc98v7IE389qBu5f+yEO89eyh21rjL9LY3aozmg4kZ31eLgO+Wgv7 qnX1e/6m8H+9Vq+4PEinFZ9Kh9i+BLyyf/V+qQALecN3iu1Klno4RjOOcu5lGB4H2Xi95K+6v0qy4/Pn 2ePmh5m4SUZmltNSBCl/cJ+h+/1wkm/fdzv9wm3fZ7 6D320By+34sEkwbdQDfQF+gLdJ/5NXy5Hy941iyffrd3crARnJ0Gd3+9IGM2uhRGsyzvjXvm/sWoDn1F xvt6yj568JS1r/Wuz/y7an+k3qM7b6I7Q1DRjw1gf0N+zbh5fFvsg76k/aq+i7fwie14s+Vj31g+9o0F /WrBfrUC/y/4CmrsQ6xsW42I7AG93HixP9TM8TOk/t +BzHbcG95YiTiO33HTiam5solvC20F/tb+DQ38g08y2vkv9rx45ehdKd01+rsXnsf/W/bHHo3eGoE0Z+ g7othIl7C/Wm2/xaLn0q5999qZU0M/LkvLJrorJ2tQJRfbrZ3A6v+qWdz2v8aaP6ykrFGgX6zqJ9B79M fT0VGx2jvRWnQglbSLz0n/b+6mV59498gIs58x/+hX RK/97+/0t2a/epm26vyu685/0o4zvG7y+L6rMShk/vhmsztc04N+630rWfTTr+6x4Jv+le9V/o9CiHTk c4gTb0d/7QD3bP+snXcf2w/etaBfLehXC/uDC/uDC/uD/qw97ba4G21Ft/bSr26Z/ik4wibgg/l/j/P3 2PBn9o/7qt7upazdJgzqpyl3W4d+5c/iC2gvF6+1IV HvjGd/Rl75M/BLg0qTacmiI+gC+uhXLrP+6xMlmpfgk2V/pr9J40bBJIFvV3472OpB1Tw28Bpux+ztLr Nf5rU/AGvxG8zMaUpmTlj++fIAAi8HH8JD7DzeA+8R/E3ufWeQHzG05s0t+2RIl2Le3feQhsj9SBO0oF O1/o9vM40qPeTmF62s3Md19/vS6K/NeuEeyX/babPf fQ/kv/+Ljb5xj+P3nDki7c07rN2eFy/9qt/vPZoYR2AVi6BuRe01bfv/6rSALp/g2iJemOYpaq/pV9XO YjoFZ3Fa6RGjSZ/96sorL/4ec75v652Ebrv52acx943p9Zm36i+pd4+/R1ttjzhZggn9qpfn73I9V8Wy eKp0iduBhnf81mAgtlq8qszOw3eLjDdjq8LFoS+Avv V5QyvO0bV47ZtB5OFJokAE0vQksYSXj3O22paynuh3216aCVi0V110yCiwjWsu+8FhTe2pB9WnVN6R/S 772NbFSHHZNJajz2dP+wtYZ9Yb3c9idPi43y0N0sA14VH5mY+kA4uzcMtom/+78f+W/vaXWv2162Gs/k 83k9wsY+xdTrCXfgYpbTfujIgRJD5T0kjvL6KK8g/q 895AnrZ97NfD9x3bY9/HJ00bXpYBm4bw/Ix90o+JekruVP7fv/qm2MytZzboWpXr0LQgIFekx/ID+Xzw fUu/6vQB/Ir9ePFxA78735rKUzkc4sk7NPTO4XA2tYIC/peY4cv0hmilb7vg+4SYlK465h2+738/nvzk MGhlD6bjKX+psG99PufsqeII8w9JTf489oqEcTjlEs XW+oyMSA75DawxV7IhmBq70HFLcGqK9Oy6PdypnQfp26d93jyg1Tkz8SXDtVB3xQ5mU+job+vMFl0Od3 Nn/m4D05Cch8RnE2lo50+J0q+005+tU3dcoINmGI9yPaU3HLN/vsGxiwxBh7016Jo6ir5a05y/RelXb/ kMI2V9WeJK0vmT4TgMZwcKdqkhX+Unyk/QD+hnyin9 6h0IGtHCqFg6h+L/wv+78P+WfnVlTpR+1c+PvIqF/pZ+5GEzigh4Dqfr0pUm5Yt7GtpdhdNlzhh20s+K J2W/zxBcj4cC2H+u5MePPz10AIU+VWMY+dXBonRmzWGgq9MqSt+66/Qo/equd+FtM8HlvWe5d6M3u9am 7/4ysZ891ojmlH0/58f6bv0G9/S4+tUq+VI9y4O4vb u1Mk0b3+bBwen2dn+3/Jvj8QwVhWotj3iyr0/Kv/c6ejwEa2fqwow31QFHXuYd5OszD+rMx3ljnFJ3Zu XuSp923BDFT+Qw9Kso/aq+RbiY3x065cBbs8nf8ugfRusHdbWq54YLmJP85DjAWKZZvUWU/dV25CmnyN ftn/3GPL3jJK5/N45q9L63RgdReLQ73wqb1Yjgn583 IovLOr121h6jR2/8/8e7h10YhRB864RSt9u3ZxfBlqWI4tXHY3cQuVk/m/5XJY7iRGhzH5y/JRml4tHw 4DvyCZQ/7Q9UE0yskH1EhNh/8iQnm2ie5Ee79qoFl/SrmwYf/Ko6ndlF+a280KNp47BdIu9jZ/izPjo5 29RSSs6Ri7818mrkn6u+/kx9/DPyKUdDk0J/wN/If/ Z//THwDc+fTz5e+lFyGtc89mh4yedPOr5K64uKgQ0506qe9X+r3VMjhysqUtMwtreRE866VEk4Bj+D/4 0Iy034w1fi/OYGkc7Xx1PO67+45HX+4j7Hzh3yaCu896IZsBm/nr/60uAL+AK+gv/W97Wh+Xv+6kvj+T 2quo0upDlz/muAxn3u9u7kZgTr1V/W14v/1vemwU/w 2cxO2taj88wc5/V89+B8Cfgy+SzUd+bGi2430L2262+uKv3d6Bctdg1tp67uN+1hnfnvC/93+vocOy7z +F3xv8k4Y7owjuBLnqF/2Mxh2pq6/Y0Pvkd/9r3A3+Cb8J77d157H/I/3zzr7/8RQ78cFPhc1Jf+Z73g uD/ePoYu75yB9ZI2HI/Bn/IL72fd7ByME/Yrb/2qns e7JNptTWINoPkp0UWZ93Lhyh/zkducz/HrC2MjRcjloL0uk+36FLrrcNBX7CIQe/B/D/7vQX0P/u/B/4 X9ytt+1WnwHfxZ/3rpVyXbM+tfL/2q2uTB+Gtwi8RYykn4D5j3P9c/qjMqE22c9SJC19BuR0iw+9gn3c +3Bw3fk733wphOp/XB3hXxbz9D//Yzjq0ElLAetWuT 5aZAwtVS2ZlO9qpybjOrhSolY7R9OJT3lQ+ixud3/GvzeQI55kBHV+kZz2t/qSnWO022i8Ajt16bc/Ac e6wn/m/i/yb+b+L/6yerZZyr5pL/0uZ/lasRQ83wAHB/1FGmFV8vnQzG/rpkc6ld7Dmtc/Qr7/SnB0bp L0gYp99rxM4U37+KP+vJpL9itmIxm/Om2tiaG2+Uft XpA/5BOUe/nlpAF7J9V21Wj+CP/dxy81KO0ZIcYe8Uu+Ar+Ei1qwrQxi3CdlYhsDP5t+cP+A6+gx/IJ0 Y+En38ZJhrUdoBgP6BuR+3zYUvgkdWuUTAJ0BodsZ21T0me67CrJ+FznnCUEM+B8/P+zpIWlkuuA0o+2 HBxhR093i0P0h8+OLVr+jDcef0qz06Y266gc4em0gf zQ8cVh2xzMrDiNClFvC49anX6vi7c4VEnRly6IsRx5+iNxecP7CkCG33uanA9aiK+hwq6uzA5w+ez79B hEuP3Oip2g/jzFR4mgKPz45fAq+38bNJtcDpslKKd37589AYxiNScFW39o90Fi6H+Gm6s1md/omN4y59 SlY1SyHukEelA/rGdCuc0yGL+HDmeOI2qx9M7Q7B+l WGf5zzT6pf7/ijCOwPhqG+pV+FNFz554Mogi57ASfE38FIoSfsSQg9NvhZQ1o2PI/FC14ajjlz11z5YQ fAF/AZsECc4H31k3fmh+j9wUob+RexAo4jDK1Rp2byaQD0QmeFC+KZcgPbU7J42QywUz/Al/kvPuvfcL RnX+AvPL+Rz/21vzg2nkCBf/Vg+Ofst0f5VQ97Putd f8MD+aC+0K/CUd/Zr2gNsZ/Tk01jER/5org2vjhI+lWnF/gLz+6JfcSAm3zQk/Srm/96rLp6marX6n0p hGgIW6PpgQhWh+q04iWcph/TgL9uAkyt9HqEg+/5qzorFe/5qzrHFe/5hp5w64hvo+13N/O69W8AJ+Tz js9a/BqfOw1+oSj655++dII/618gfs0i5rX2nttPSn nkIzbp9//2M/qVP5+FfJZNen/yyWful+Qr7UwvDiaf+eaRfOb/2bQ9f4a+4Cn+6M/7IQd65Exb6NdGK3 qulxyhh4S+Zb/qZxTPL+Kmeyyu1qil+9OlOkG0j3Myj8VFiB1vmrnPXO9TQFzPZ6Hp5RPTvJ2P1htbLx /S69ETl6DTzFO/JK4Tq6StuC9b2ChKiGeiK/jnmwdT 57xKQr/K0q9u+hzOT5fpovc2HX52m3Fokeih6a+qzGW/5wFUxsPbtufl3LkdNmrOtgYc8PG+85R4jD9H jEdswjA6GC/OI+VGfUu/5bMuN8Qlpnz74Lv+wvML+vj3N0HzZgQbgE9X9J9z7/3l2Ridyiah0Wp04FW2 4D4h1P47pwsnsc7eRgIM6Qo+xVw186OtEyj0i8X+lY b+azP/hy07Se4A+2kz/7XxhUWcp2pP/hrbN5FUXjyKiX+lX900+BivDsarg/Fj3Md48fs/Ien0LAR/jH 0jD+p7Rp/MM/ejOq2hC9/zL5yiFrxTuzA0g22/1keJ/Tigre/arSpV/KZ6Ml2chOo1Cba7m/euwijo7l0Q cJ+0YYstDaG9PjZByfc355K648b6Ld/NlPSZ/1fvrc i8hbg3rr90NJ99yG+4MZsx+ioE4YpPB/MLE/iXGIY8Nj2O5F3U/UNYkggPfCz0Wk3Z3b/WJtblGnR0vP H8yY/dDM2Q/WaWOK1BY92M/DHU5T4l2O/gZ/g4/25f1a6wyPZsvecWg8m0n0mgTXszHzzXy///6nbswF 6M5MMW3y/Begus3GA3w/iK/3/DMi455/4tN3/oj9KW Y/wq43gT+dgjI35l/a/2fiZf8BKrgldfzrxundyn92fHpD38N71q7c45TTKiorE8lJfr/iPeIQ/c57xq BqgWHk9mP7zA4ihp3v0e5Uz6pBARE/0qSv5ynczn2C9tpFj8Q8Tvyr9dy2/Dbi2jvsUe8n61rKURM2VR Oi/RGzZPwR+LyuvE5ZpUJc11F2tIdiHssUTVWnzWv0 h7kfEtuHwnLghr2E1kXUgGduM5vfkU0wot0ZPTox3mghyXpNRe9JACLsbM8q3ltPRfANN/lOdMLW73cc sfYIftI5as19ZSDlYM4/c1gCJ+BCamzICJKRzC9Bxq3c7VvSPW+hDLDr+EewHUBv+wOBRlidLHP7D8Qt KDk2Xv5TaF2wUcvDJVYPIHBKbnJT/SzW4uXa/RHoCz YT/F9Nq8LmdcaMZ5g0J8aZ1dJlYjsDJuvdc3/EKHQ/ZfEAc1IWWGJZYvl+Br3WF2B077Fm76X3X1Uc8Z e9rdXQjMl2y1KdbmpsVCr/xLeC/BNHT9yxn90+C2mbrz3bBjbYG+CJCWLYy7B2fNb7L5g9rGY0p/i02D 1n3RziDRYLPLYMRKBd3QmZmKqYXqTBz1GVxD/L2q2P F8mbQlA3PmL9TUmVCDsaBUH/Z5Ls3naW5r/49ZMlsrVAKSZjzUKPK277UDuLhc1FaH75Dtv7oyZoX9wU 4m2NEHLAn8Coe9TldjfBbua6GBpO/lewVXquQnpVL8GP1M3RRueM0zJMkNKv7Gjshe+F1sxhRTzzM9IT K6ewkQ4mQoHuGC4BQHfNp4/4nN91YDLpMTNFOHhap7 BV3MYqXAhV1jJRu0WxuRdO4qOhwYtWWaXcCrRPlMnME/0lBHNjeae/GQj0g/HIRAL/dCWuJQOeyIkA4bpci hiyEo7Zz4XUYxSBFHAg3R0S02RCLS/yDl7NOLGMmBsStUAGVMV5MTtZ5D+IH2o/qClBL34i6GQTOmREg 7BlB6H3R8K0CYFHcCpYArMORWBULwzB2EHYO/2V7xL 5BdH8W5NE0RQGUyiqnHA9K2xsvMYgRo3AmLWgzUfNpSA5byMwmcuBhOKm0N/qJt2EeYNLoyoavw22JIv oR/Ihn4ge/AfwM4oy0YayXaVS+7tyneMD8b5s3LkP9yZ/Z1V1hDBPoPMeIOybQzIWLQ+pt68sLnGHazR HqxrxvdPSCUc6kYqYxQHbbRAY8XAxs7jWtOK1t4CAK YYtZTf+815jXjMxmb3pl+00OK7hp4qt/U5DYrxdVRKZ7h+sunrO6f8Xbb6im9ed1udEi9uXxUA+cGvOz LFksMQPYK3E+8FVNeAB0TCA1Ta84Km3VrTzfJKCZmPyVwAyfgvndvljAqj5xdx+DJtcEsov4pNHJJ34c yaIT9nQyKACF87ZoK/qEcstnFXIZ9OVDfLzCr8Sjus KRJzeULKW/4sgUPpTadSR5X1canq/0a/uF8s8hEReP0t/7P4gn5PWuHIi9JN4KqoI5CD9LMw1LB+dqRz raVYfy2p91wxJubFTrUq1/ixby4Vszok1yj4U1rrfY/ovegU6sobyE36oC4eW/UGvvMQzX9yBtvnrFTM FiZmRy1yCcpxNVLm4E55c1zE+D/oUwPDGHvV6WB8rV 8IOISwLQ53RjzRo3fxAe17N/0YEOKZiKDFaHbjCewTdJqP5q8/GhmDqrSH/jhIEylPjIFqSev9fe+[place] NV5Jspcyf8jkaMSQeNHxLRQFZoVombUPM6hBuSruATdKnBuqy/MDyLvhil9Vt/d8KBPpOPhcQtFzHYyZ IRSDaLGTTWNbd7sodYBlg/ZuRSX65YFtLDVLKHBvW1 [file] x3KWXMOG/CKA/SERVICE LIAISON REPRESENTATIVE/YVF3yXc2gjxutormvkXIRcqhZNJxSuCSgpTivDhkMdJwI6JQmV9FuVuLd1PzKWK b7Rkc6p7KbP1vURd43T/MVTvRY6Y/96NYJq7ymEBQMAHO+N7TGkXg5qqZU1oMjM2D9nL/ZTWDPteNAZJ tYKaNV3zJRieVu4TVWKdzJZfS1H7MHSuBFxeesQDvb PCMqRjaEaqBLnAwVCQsr68iXmyGiTHBg4COE2OTygwfUM580vyIXnGI27F9tiyRoKY2JjTGdJNAXAveA uNAC6PJUpTH1RF6PK+JEggjsSHYoA+pSKt2DxF157tULxlZL7NqMTA2tpRNMkUUFie2CF146XJt/MI1w bnTOjXARI+wjtDfEE5rNbDBXWHS8LRMYWzNVsZrHTB LGgO1EIMRrLESRC4XFvM90XE1TOdLwoFL1VtaB22DBtg5poTAqbmUUON/jylZs07g996tpxdcjRgl5eB 85qrS1X+K3euzj2Me1R7uJdcF8Z9HpDcOJmz2pgVMULQX+n7WWZwXwk6etgYKgHrZaHy40GiKMDvhROA DDEHdSKjCWGFJP0FYrTu9rxUHVTGNDTXm9qcuYgGty ZCTPBDXSMQosIFRMLVBLSWgdBBON0MhgwzJAfctlBYGDHIocrq3Mlk3iNsuqP3NoRY1mVHkOnhmKzian FhEVSQR4wY2CtDqSN+QQcSJOJIjg/UWXfqsrR5PfqhGoXHXVNDYfoWzaQBvWVLEf1wFYSBzJH5EGddRN ENDHLkwpiSGbax1TFCzzBd6wkWNJaE5sg8STqSROI2 O6hEASIuwYiClms4gyzmxASKMGJEytX4Y6f41rXpHNLRP3gsDiD2Jy0eIckCiiA32dr5VgS4h/bZgbj7 PnqGwEUNDBVoPbrkvvQXvXkDnMYTMIQPwQMrjiUqe47RtQ7vPJvPENFhU0P5l8nloFZzXEwAgDqZTnrE KWeu9KbsrRYsAHTuN2xQKgfl4e+ENEiLAdcN+5I2B0 s0EAXK91VFgWqxabFShXDMpcdkcsTBMeXnNCmHYFBUJf3afZ58mZ1tQOwvdher20CC01eD2a6Lep0itQ w/OJh+bMM25lGo6NICwjgKy+hILm6XlA7pKw5kjTnwNoecnlQA8grYTATOP3RHaweV4KJkk6qB6Cz3se eaZb6kQ4EgFJn+T4aJoFhbTBss3jOLH7jGbvdMgadi djOIdyEPRVbtSMJmA/6LgZtZrqwBkfMd+2eAStVMVpmFf4inMIyJJoK2oWmSjTXSHSMYkbTQSvZfY2NK RTPVgKDXOKA17vBdXLsKEGeiOvrXaie8dyVgDKiNEsyEtDHvSBqstxZZSNHrTHENlryiNonIPxAFPq5F nH2ai+4rkn0JJ3cMEkig5ib05OP5NYqhEOmW33RmKu Jsj4LZYg7JNGSEWjhG0DdqAhebxdiYANbU0j2vHrQioTV8S77lerblx2zY40xXo8reryEs/n+URfsKH4 gq2CcT0MeZn8BvhV+dCT9LnVz7VvqGASpFmnWD3IiD0UPF9zDzjGDwsx5U3o7GQ6VO8JUWYKXTI6A3iU jIgROUQoA+47+9nMUhVT515q093a7Ye65ws8256h+8 9XBtHoT6bsFnDS+HkIb95fMeNmnvxU6NH3A4TveE6a0QCrftGOS2ZeVX0waNbDNaqZtdf0ZAgZoVekL3 184zbIMzHfIts9QAto0FCX/DtrYfVFyM5m9jZQPHLbSE49SoRRlzQi6DHz294ylLH284P714h8Y7tD99 SMiBHB/ijA6KKu+evplJjEcj1oqjwNCLDKcD2QkF0i lNUJOH5m0AyooJYAHfhlHUyUcOzpWtwyhlA4LT9IVvCreZqzlLkCbELWmk6KZgoRfzzIRZH089hNEv5S lKVNZAA9YUKzBS1swKK2YKL7+TquHkImf2JYrzTKWhHSmkoObG+dMePsKACYZpFLIcpKIgfH8QDArkru xiclvcAZrIW7oSMveO4KDKosE7cCP/kI+EureCDdZY J+ceQLRD95bcmHNJJmpTO5SMNqJhcFYpyXFhaQFrhMEzkGOldVYwEbXbMtgotCzK7GKczvETEyUPkAGY V2LyhAnThkw6E/lVvB1eU+cNoTpwgTGNVQzTIyyVrtArEUOYIJB2I5PPB5ACI8ODrebBEWJNmDxB8pcL 3L3nNxFHRzwdBYdCWH50FjDBYN0G3P05N4DG8LX+JE lagQHWJaV3DMkYvgpNQtGMDaQwNfOYp3m573vOcW7ePty88oT1vUXb8bOM3mMZ6gGJ6xOA1rKQ3iQSza Y9DBR3OXKjAOeJ3pGcLvJl2kSVTW13DPisrD+sUJ+sUJ+sUJ+sUJ+sUJO/wOZWCUgVEGFnyHMqBfnKBf nKBfnDiUwaEMDmVwOCYejomHY+LhmHjYDugXJ+gXJ+ [file] MDkgMDAwMDAgbiAKMDAwMDAwMDUyMyAwMDAwMCBuIA pwRYMjMAYzAkSvIKHkFKXkVT6hSvRwYRGqQHL0KXSaNYDtAFWojbLMHFHjLEVzWBw5CWSkADFjYULdCP nvSGFvRZNaXRY4NNPuISVpZM2oSqZtQCGpTFKyNFWxACXjCVUjbtHZMUUpYXXdZQM3ZXVhIXZgLUIwVJ dpKKVqUDYsLoj7BSQlGPZhUT5sEnFpHNEsLJE2UQXl RTVnKXPwxlWIXNNyZHP9RsA4GHDsVWIpIQCbARjeIBFdMJByQlZ1TMUuVFHeGM8hHnBeFBWhCYQ7QkPd XTKxKSQlaxRUYOYmMIWqGST4CaBjZGEaJKGtNHigYPNeCQWzPZQhKJS0DKO4SXWoMwNkYArxMJMRBFiT Y9UpqjLeBvGPW1ubHl8cGmIqQKNSR2Cmm9OhWLUiNLSBJv2+LlU7ORL7zXVxBly2EDQ5CzstNKCPUx== ID Date Data Source [id number] 12/25/2019 03:12:58 PM EDT [facility] [place] [facility] Name Value Range Interpretation Code Description Data Mayte rce(s) Supporting Document(s) HEMOGLOBIN A1C @ 7.3 % (4.0-6.0) H [facility] [place] [facility] Performed using [employer] immunoassa y.Care must be taken when interpreting [id number] in patients with a hemoglobin variantor decreased erythrocyte lifespan. Values 5.7 - 6.4% suggest prediabetes.Values >=6.5% are diagnostic for diabetes.REFERENCE: DIABETES CARE 2018: 41(S13-S27).[facility]FOR[facility] [address] [facility] [place] [address] EST AVERAGE GLUCOSE 163 mg/dL [facility] ID Date Data Source [id number] 12/25/2019 10:50:54 AM EDT [facility] [place] [facility] Name Value Range Interpretation Code Description Data Mayte rce(s) Supporting Document(s) NT PRO BNP 22 pg/mL (0-125) [facility] [place] [facility] ID Date Data Source [id number] 12/25/2019 10:50:54 AM EDT [facility] [place] [facility] Name Value Range Interpretation Code Description Data Mayte rce(s) Supporting Document(s) TROPONIN I <0.05 ng/mL (<0.05) [facility] [place] [facility] [place] Less than 0.05: Myocardial injury unlike lyGreater than or equal to 0.05: Highly suggestive of myocardial injuryCorrelation with rise and/or fall ofserial troponins, clinical symptomsand ECG changes is necessary. ID Date Data Source [id number] 12/25/2019 10:50:54 AM EDT [facility] [place] [facility] Name Value Range Interpretation Code Description Data Mayte rce(s) Supporting Document(s) TOTAL PROTEIN 7.0 g/dL (6.4-8.2) [facility] [place] [facility] ALBUMIN 3.0 g/dL (3.5-4.6) L [facility] [place] [facility] GLOBULIN 4.0 g/dL (2.7-4.3) [facility] [place] [facility] ALB/GLOB RATIO 0.8 RATIO [facility] [place] [facility] BILIRUBIN,TOTAL 0.4 mg/dL (0.0-1.0) [facility] [place] [facility] PLEASE NOTE:Total bilirubin results may be falselyelevated in patients taking Eltrombopag. BILIRUBIN,CONJUGATED <0.1 mg/dL (0.0-0.3) [facility] BILIRUBIN,UNCONJ. (0.0-0.7) [facility] [place] [facility] ALKALINE PHOSPHATASE 149 U/L (45-117) H [facility] AST (SGOT) 23 U/L (11-39) [facility] [place] [facility] ALT (SGPT) 48 U/L (12-78) [facility] [place] [facility] ID Date Data Source [id number] 12/25/2019 10:50:54 AM EDT [facility] [place] [facility] Name Value Range Interpretation Code Description Data Mayte rce(s) Supporting Document(s) SODIUM 138 mmol/L (136-145) [facility] [place] [facility] POTASSIUM 3.7 mmol/L (3.6-5.2) [facility] [place] [facility] CHLORIDE 107 mmol/L (100-108) [facility] [place] [facility] CO2 27 mmol/L (22-31) [facility] [place] [facility] ANION GAP 4 mmol/L (7-16) L [facility] [place] [facility] UREA NITROGEN 15 mg/dL (7-24) [facility] [place] [facility] CREATININE 0.83 mg/dL (0.60-1.00) [facility] [place] [facility] BUN/CREAT RATIO 18.1 RATIO (10.0-20.0) [facility] GLUCOSE 182 mg/dL (70-99) H [facility] [place] [facility] CALCIUM 8.4 mg/dL (8.4-10.2) [facility] [place] [facility] GFR >60 ml/min/1.73m2 (>59) [facility] [place] [facility] GFR ( AMER) >60 ml/min/1.73m2 (>59) [facility] [place] [facility] GFR INTERPRETATION [facility] --NORMAL KIDNEY FUNCTION OR MILD DISEASE - GFR >OR= 60CHRONIC KIDNEY DISEASE - GFR 15 - 59RENAL FAILURE - GFR <15 Est. GFR calculation based on the MDRDstudy equation, which assumes a steadystate for creatinine. Est. GFR should notbe used for medication dosing. ID Date Data Source [id number] 12/25/2019 10:28:59 AM EDT [facility] [place] [facility] Name Value Range Interpretation Code Description Data Mayte rce(s) Supporting Document(s) WBC 5.9 10*3/uL (4.1-11.0) [facility] [place] [facility] [place] RBC 4.35 10*6/uL (4.00-5.40) [facility] [place] [facility] HGB 13.3 g/dL (12.0-16.0) [facility] [place] [facility] HCT 39.4 % (36.0-47.0) [facility] [place] [facility] MCV 90.5 fL (80.0-95.0) [facility] [place] [facility] MCH 30.6 pg (27.0-32.0) [facility] [place] [facility] MCHC 33.8 g/dL (32.0-36.0) [facility] [place] [facility] RDW 12.9 % (10.5-14.5) [facility] [place] [facility] PLT 197 10*3/uL (150-450) [facility] [place] [facility] MPV 7.3 fL (7.1-10.7) [facility] [place] [facility] NEUT % 61.0 % (35.0-75.0) [facility] [place] [facility] LYMPH % 29.3 % (16.0-52.0) [facility] [place] [facility] MONO % 7.6 % (0.0-8.0) [facility] [place] [facility] EOS % 0.9 % (0.0-5.0) [facility] [place] [facility] BASO % 1.2 % (0.0-4.0) [facility] [place] [facility] NEUT # 3.6 10*3/uL (1.8-7.7) [facility] [place] [facility] LYMPH # 1.7 10*3/uL (1.2-4.8) [facility] [place] [facility] MONO # 0.5 10*3/uL (0.0-0.8) [facility] [place] [facility] Eosinophils [#/volume] in Blood by Automated count 0.1 10*3/uL (0.0-0 .5) [facility] [place] [facility] BASO # 0.1 10*3/uL (0.0-0.2) [facility] [place] Ellen Ignacio ID Date Data Source [id number] 12/25/2019 10:24:22 AM EDT [facility] Name Value Range Interpretation Code Description Data Mayte rce(s) Supporting Document(s) HOLD TUBE PINK [facility] ID Date Data Source [id number] 11/24/2019 06:37:00 PM EDT 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[facility]) RADIOGRAPH RIGHT RIBS INDICATION: Fell i n shower, right anterolateral rib pain. TECHNIQUE: Single AP view of the chest and four radiographic views of the right ribs were obtained. FINDINGS: No right rib fracture is identified. The lungs are clear. There is no pneumothorax or pleural effusion. The cardiac silhouette and mediastinal contours are within normal limits. Gallstones are noted. IMPRESSION: No acute disease. No evidence for rib fracture.. X1 Name Value Range Interpretation Code Description Data Mayte rce(s) Supporting Document(s) ID Date Data Source [id number] 11/02/2019 11:57:00 AM EDT [facility]AM[facility] ([facility]) Name Value Range Interpretation Code Description Data Mayte rce(s) Supporting Document(s) Hemoglobin A1c/Hemoglobin.total in Blood 7.0 Abnormal (applies to non-numeric results) Hgb A1c [facility] ([facility]) ID Date Data Source [id number] 04/07/2019 10:11:14 AM EST [facility] [place] [facility] - CORE SPECIMEN DESCRIPTION THROAT SWABC ULTURE RESULTS NORMAL THROAT BK NEGATIVE FOR BETA HEMOLYTIC STREPTOCOCCI GROUPS A,C OR G.REPORT STATUS FINAL 04/07/2019 Name Value Range Interpretation Code Description Data Mayte rce(s) Supporting Document(s) ID Date Data Source [id number] 04/04/2019 12:00:00 AM EST 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[facility]) Name Value Range Interpretation Code Description Data Mayte rce(s) Supporting Document(s) EST AVERAGE GLUCOSE 171 mg/dL EST AVERAGE GLUC OSE: 171 mg/dL 04/04/2019 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[facility]) ID Date Data Source [id number] 04/04/2019 12:00:00 AM EST 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[facility]) Name Value Range Interpretation Code Description Data Mayte rce(s) Supporting Document(s) HEMOGLOBIN A1C @ 7.6 % HEMOGLOBIN A1C @: 7.6 % 04/04/2019 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[facility]) ID Date Data Source [id number] 04/04/2019 12:00:00 AM EST 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[facility]) Name Value Range Interpretation Code Description Data Mayte rce(s) Supporting Document(s) BASO # 0 10*3/uL BASO #: 0 10*3/uL 04/04/19 20 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[facility]) ID Date Data Source [id number] 04/04/2019 12:00:00 AM EST 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[facility]) Name Value Range Interpretation Code Description Data Mayte rce(s) Supporting Document(s) EOS # 0 10*3/uL EOS #: 0 10*3/uL 04/04/2019 TIMI RTMAKER ([facility]) ID Date Data Source [id number] 04/04/2019 12:00:00 AM EST 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[facility]) Name Value Range Interpretation Code Description Data Mayte rce(s) Supporting Document(s) MONO # 0.3 10*3/uL MONO #: 0.3 10*3/uL 04/04 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[facility]) ID Date Data Source [id number] 04/04/2019 12:00:00 AM EST 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[facility]) Name Value Range Interpretation Code Description Data Mayte rce(s) Supporting Document(s) LYMPH # 0.9 10*3/uL LYMPH #: 0.9 10*3/uL 04/04/2019 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[facility]) ID Date Data Source [id number] 04/04/2019 12:00:00 AM EST 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 [facility]) Name Value Range Interpretation Code Description Data Mayte rce(s) Supporting Document(s) NEUT # 2.4 10*3/uL NEUT #: 2.4 10*3/uL 04/04 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[facility]) ID Date Data Source [id number] 04/04/2019 12:00:00 AM EST 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[facility]) Name Value Range Interpretation Code Description Data Mayte rce(s) Supporting Document(s) BASO % 0.5 % BASO %: 0.5 % 04/04/2019 CHARTM ANNE MARIE ([facility]) ID Date Data Source [id number] 04/04/2019 12:00:00 AM EST 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[facility]) Name Value Range Interpretation Code Description Data Mayte rce(s) Supporting Document(s) EOS % 0.2 % EOS %: 0.2 % 04/04/2019 CHARTMA KER ([facility]) ID Date Data Source [id number] 04/04/2019 12:00:00 AM EST 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[facility]) Name Value Range Interpretation Code Description Data Mayte rce(s) Supporting Document(s) MONO % 8.4 % MONO %: 8.4 % 04/04/2019 CHARTM ANNE MARIE ([facility]) ID Date Data Source [id number] 04/04/2019 12:00:00 AM EST 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[facility]) Name Value Range Interpretation Code Description Data Mayte rce(s) Supporting Document(s) LYMPH % 24.2 % LYMPH %: 24.2 % 04/04/2019 SUHAIL TMAKER ([facility]) ID Date Data Source [id number] 04/04/2019 12:00:00 AM EST 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[facility]) Name Value Range Interpretation Code Description Data Mayte rce(s) Supporting Document(s) NEUT % 66.7 % NEUT %: 66.7 % 04/04/2019 CHART MAKER ([facility]) ID Date Data Source [id number] 04/04/2019 12:00:00 AM EST 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[facility]) Name Value Range Interpretation Code Description Data Mayte rce(s) Supporting Document(s) MPV 8.1 fL MPV: 8.1 fL 04/04/2019 CHARTMAK ER ([facility]) ID Date Data Source [id number] 04/04/2019 12:00:00 AM EST 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[facility]) Name Value Range Interpretation Code Description Data Mayte rce(s) Supporting Document(s) PLT 175 10*3/uL PLT: 175 10*3/uL 04/04/2019 C HARTMAKER ([facility]) ID Date Data Source [id number] 04/04/2019 12:00:00 AM EST 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[facility]) Name Value Range Interpretation Code Description Data Mayte rce(s) Supporting Document(s) RDW 13 % RDW: 13 % 04/04/2019 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[facility]) ID Date Data Source [id number] 04/04/2019 12:00:00 AM EST 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[facility]) Name Value Range Interpretation Code Description Data Mayte rce(s) Supporting Document(s) MCHC 34.6 g/dL MCHC: 34.6 g/dL 04/04/2019 SUHAIL TMAKER ([facility]) ID Date Data Source [id number] 04/04/2019 12:00:00 AM EST 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[facility]) Name Value Range Interpretation Code Description Data Mayte rce(s) Supporting Document(s) MCH 30.7 pg MCH: 30.7 pg 04/04/2019 CHARTMA KER ([facility]) ID Date Data Source [id number] 04/04/2019 12:00:00 AM EST 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[facility]) Name Value Range Interpretation Code Description Data Mayte rce(s) Supporting Document(s) MCV 88.8 fL MCV: 88.8 fL 04/04/2019 CHARTMA KER ([facility]) ID Date Data Source [id number] 04/04/2019 12:00:00 AM EST 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[facility]) Name Value Range Interpretation Code Description Data Mayte rce(s) Supporting Document(s) HCT 44 % HCT: 44 % 04/04/2019 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[facility]) ID Date Data Source [id number] 04/04/2019 12:00:00 AM EST 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[facility]) Name Value Range Interpretation Code Description Data Mayte rce(s) Supporting Document(s) HGB 15.2 g/dL HGB: 15.2 g/dL 04/04/2019 CHART MAKER ([facility]) ID Date Data Source [id number] 04/04/2019 12:00:00 AM EST 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[facility]) Name Value Range Interpretation Code Description Data Mayte rce(s) Supporting Document(s) RBC 4.96 10*6/uL RBC: 4.96 10*6/uL 2019 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[facility]) ID Date Data Source [id number] 04/04/2019 12:00:00 AM EST 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[facility]) Name Value Range Interpretation Code Description Data Mayte rce(s) Supporting Document(s) WBC 3.5 10*3/uL WBC: 3.5 10*3/uL 04/04/2019 C HARTMAKER ([facility]) ID Date Data Source [id number] 04/04/2019 12:00:00 AM EST 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[facility]) Name Value Range Interpretation Code Description Data Mayte rce(s) Supporting Document(s) GFR ( AMER) >60 GFR ( AMER ): >60 04/04/2019 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[facility]) ID Date Data Source [id number] 04/04/2019 12:00:00 AM EST 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[facility]) Name Value Range Interpretation Code Description Data Mayte rce(s) Supporting Document(s) GFR >60 GFR : >60 04/04/2019 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[facility]) ID Date Data Source [id number] 04/04/2019 12:00:00 AM EST 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[facility]) Name Value Range Interpretation Code Description Data Mayte rce(s) Supporting Document(s) ALT (SGPT) 38 U/L ALT (SGPT): 38 U/L 020 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[facility]) ID Date Data Source [id number] 04/04/2019 12:00:00 AM EST 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[facility]) Name Value Range Interpretation Code Description Data Mayte rce(s) Supporting Document(s) AST (SGOT) 25 U/L AST (SGOT): 25 U/L 020 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[facility]) ID Date Data Source [id number] 04/04/2019 12:00:00 AM EST 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[facility]) Name Value Range Interpretation Code Description Data Mayte rce(s) Supporting Document(s) BILIRUBIN,TOTAL 0.5 mg/dL BILIRUBIN,TOTAL: 0. 5 mg/dL 04/04/2019 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[facility]) ID Date Data Source [id number] 04/04/2019 12:00:00 AM EST 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[facility]) Name Value Range Interpretation Code Description Data Mayte rce(s) Supporting Document(s) ALKALINE PHOSPHATASE 145 U/L ALKALINE PHOSPH ATASE: 145 U/L 04/04/2019 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[facility]) ID Date Data Source [id number] 04/04/2019 12:00:00 AM EST 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[facility]) Name Value Range Interpretation Code Description Data Mayte rce(s) Supporting Document(s) ALB/GLOB RATIO 1 RATIO ALB/GLOB RATIO: 1 RA SARWAT 04/04/2019 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[facility]) ID Date Data Source [id number] 04/04/2019 12:00:00 AM EST 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[facility]) Name Value Range Interpretation Code Description Data Mayte rce(s) Supporting Document(s) GLOBULIN 4 g/dL GLOBULIN: 4 g/dL 04/04/2019 TIMI RTMAKER ([facility]) ID Date Data Source [id number] 04/04/2019 12:00:00 AM EST 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[facility]) Name Value Range Interpretation Code Description Data Mayte rce(s) Supporting Document(s) ALBUMIN 3.8 g/dL ALBUMIN: 3.8 g/dL 04/04/19 20 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[facility]) ID Date Data Source [id number] 04/04/2019 12:00:00 AM EST 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[facility]) Name Value Range Interpretation Code Description Data Mayte rce(s) Supporting Document(s) TOTAL PROTEIN 7.8 g/dL TOTAL PROTEIN: 7.8 g/ dL 04/04/2019 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[facility]) ID Date Data Source [id number] 04/04/2019 12:00:00 AM EST 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[facility]) Name Value Range Interpretation Code Description Data Mayte rce(s) Supporting Document(s) CALCIUM 8.9 mg/dL CALCIUM: 8.9 mg/dL 020 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[facility]) ID Date Data Source [id number] 04/04/2019 12:00:00 AM EST 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[facility]) Name Value Range Interpretation Code Description Data Mayte rce(s) Supporting Document(s) Glucose [Mass/volume] in Serum or Plasma 146 mg/dL Glucose: 146 mg/dL 04/04/2019 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[facility]) ID Date Data Source [id number] 04/04/2019 12:00:00 AM EST 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[facility]) Name Value Range Interpretation Code Description Data Mayte rce(s) Supporting Document(s) BUN/CREAT RATIO 12 RATIO BUN/CREAT RATIO: 12 RATIO 04/04/2019 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[facility]) ID Date Data Source [id number] 04/04/2019 12:00:00 AM EST 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[facility]) Name Value Range Interpretation Code Description Data Mayte rce(s) Supporting Document(s) Creatinine 0.92 mg/dL Creatinine: 0.92 mg/dL CHARTILKER ([facility]) ID Date Data Source [id number] 04/04/2019 12:00:00 AM EST 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[facility]) Name Value Range Interpretation Code Description Data Mayte rce(s) Supporting Document(s) UREA NITROGEN 11 mg/dL UREA NITROGEN: 11 mg/ dL 04/04/2019 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[facility]) ID Date Data Source [id number] 04/04/2019 12:00:00 AM EST 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[facility]) Name Value Range Interpretation Code Description Data Mayte rce(s) Supporting Document(s) ANION GAP 5 mmol/L ANION GAP: 5 mmol/L 2019 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[facility]) ID Date Data Source [id number] 04/04/2019 12:00:00 AM EST 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[facility]) Name Value Range Interpretation Code Description Data Mayte rce(s) Supporting Document(s) CO2 31 mmol/L CO2: 31 mmol/L 04/04/2019 CHART MAKER ([facility]) ID Date Data Source [id number] 04/04/2019 12:00:00 AM EST 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[facility]) Name Value Range Interpretation Code Description Data Mayte rce(s) Supporting Document(s) CHLORIDE 103 mmol/L CHLORIDE: 103 mmol/L 04/04 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[facility]) ID Date Data Source [id number] 04/04/2019 12:00:00 AM EST 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[facility]) Name Value Range Interpretation Code Description Data Mayte rce(s) Supporting Document(s) Potassium 3.9 mmol/L Potassium: 3.9 mmol/L 04/04/2019 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[facility]) ID Date Data Source [id number] 04/04/2019 12:00:00 AM EST 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[facility]) Name Value Range Interpretation Code Description Data Mayte rce(s) Supporting Document(s) SODIUM 139 mmol/L SODIUM: 139 mmol/L 020 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[facility]) ID Date Data Source [id number] 04/04/2019 12:00:00 AM EST 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[facility]) Name Value Range Interpretation Code Description Data Mayte rce(s) Supporting Document(s) ESR 40 mm/h ESR: 40 mm/h 04/04/2019 CHARTMA KER ([facility]) Procedure Social History Code Duration Value Status Description Data Source(s ) Smoking 03/07/2020 12:00:00 AM EST Never smoked tobacco (findi ng) completed Never smoked tobacco (finding) KAMRYN ([facility]) Smoking 01/29/2020 12:00:00 AM EST Patient has n ever smoked (pipe, cigarette, cigar) completed Patient has never smoked (pipe, cigarett e, cigar) MEDENT ([facility]) Smoking 11/24/2019 12:00:00 AM EDT Never smoker completed Never s moker 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[facility]) Smoking 11/02/2019 12:00:00 AM EDT Never smoked tobacco (findi ng) completed Never smoked tobacco (finding) [facility] Smoking 04/13/2019 12:00:00 AM EST Never smoked tobacco (findi ng) completed Never smoked tobacco (finding) [facility]RYN [facility] Smoking 04/04/2019 12:00:00 AM EST Never smoker completed Never s moker 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[facility]) Vital Signs ID Date Data Source UNK Name Value Range Interpretation Code Description Data Source(s) Body weight 204.6 [lb_av] 204.6 [lb_av] DELORESWA Y ([facility]) Body height 65 [in_i] 65 [in_i] LITTLEFORK ([facility]) Body temperature 97.5 [degF] 97.5 [degF] [facility] ([facility]) Respiratory rate 18 /min 18 /min KAMRYN ([facility]) Heart rate 83 /min 83 /min LITTLEFORK ([facility]) Diastolic blood pressure 68 mm[Hg] 68 mm[Hg] LITTLEFORK ([facility]) Systolic blood pressure 122 mm[Hg] 122 mm[Hg] [facility] ([facility]) Inhaled oxygen concentration 21 % 21 % LITTLEFORK ([facility]) Inhaled oxygen flow rate 0 L/min 0 L/min LITTLEFORK ([facility]) Oxygen saturation in Arterial blood by Pulse oximetry 97 % 97 % [facility]) PhenX - pain, abdominal - type and intensity protocol 0 0 LITTLEFORK ([facility]) Body surface area Derived from formula 2.00 m2 2.00 m2 LITTLEFORK ([facility]) Body mass index (BMI) [Ratio] 34.0 kg/m2 34.0 k g/m2 LITTLEFORK ([facility]) Oxygen saturation in Arterial blood by Pulse oximetry 98 % 98 % [facility] ([facility]) room air Heart rate 80 /min 80 /min [facility] ([facility]) apical, Diastolic blood pressure 72 mm[Hg] 72 mm[Hg] [facility] ([facility]) LA sitting, manual Systolic blood pressure 136 mm[Hg] 136 mm[Hg] [facility] [place] sitting, manual Body mass index (BMI) [Ratio] 34.4 kg/m2 34.4 k g/m2 [facility] ([facility]) Body weight 206.50 [lb_av] 206.50 [lb_av] MEDEN T ([facility]) Body height 65 [in_i] 65 [in_i] [facility] ([facility]) 5'5" Body temperature 36.8 govind Normal (applies to non-numeric results) 36.8 govind [facility] Respiratory rate 18 min Normal (applies to non-numeric results) 18 min [facility] Deprecated Oxygen saturation in Capillary blood by Oximetry 97 % Normal (applies to non-numeric results) 97 % [facility] Heart rate 98 min Normal (applies to non-numeric resul ts) 98 min [facility] Diastolic blood pressure 90 mm[Hg] Normal (applies to non-numeric results) 90 mm[Hg] [facility] Systolic blood pressure 135 mm[Hg] Normal (applies t o non-numeric results) 135 mm[Hg] [facility] Body height 162.1536 cm Normal (applies to non-numeric res ults) 162.1536 cm [facility] Body mass index (BMI) [Ratio] 33.9 kg/m2 No rmal (applies to non-numeric results) 33.9 kg/m2 [facility] Body weight Measured 198 [lb_av] Normal (applies to n on-numeric results) 198 [lb_av] [facility] Inhaled oxygen concentration 21 % 21 % 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[facility]) Oxygen saturation in Arterial blood by Pulse oximetry 98 % 98 % 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[facility]) Body mass index (BMI) [Ratio] 24.2614753335116 kg/m2 24.7731491801058 kg/m2 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[facility]) Body weight 207 [lb_av] 207 [lb_av] 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[facility]) Body height 77 [in_i] 77 [in_i] 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[facility]) Diastolic blood pressure 100 mm[Hg] 100 mm[Hg] 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[facility]) Systolic blood pressure 140 mm[Hg] 140 mm[Hg] C HARTSAMMIEKER ([facility]) Heart rate 96 /min 96 /min 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[facility]) Body temperature 97.3 [degF] 97.3 [degF] KAIAAzul ANNE MARIE ([facility]) Body weight 201.2 [lb_av] 201.2 [lb_av] GREENCO Y ([facility]) Body height 65.5 [in_i] 65.5 [in_i] KAMRYN ([facility]) Body temperature 97 [degF] 97 [degF] KAMYRN ([facility]) Respiratory rate 18 /min 18 /min KAMRYN ([facility]) Heart rate 99 /min 99 /min [facility]N ([facility]) Diastolic blood pressure 80 mm[Hg] 80 mm[Hg] KAMRYN ([facility]) Systolic blood pressure 128 mm[Hg] 128 mm[Hg] [facility] ([facility]) Inhaled oxygen concentration 21 % 21 % [facility] ([facility]) Inhaled oxygen flow rate 0 L/min 0 L/min [facility] ([facility]) Oxygen saturation in Arterial blood by Pulse oximetry 98 % 98 % [facility] ([facility]) PhenX - pain, abdominal - type and intensity protocol 0 0 [facility] ([facility]) Body surface area Derived from formula 1.99 m2 1.99 m2 [facility] ([facility]) Body mass index (BMI) [Ratio] 33.0 kg/m2 33.0 k g/m2 [facility] ([facility]) Body weight 195 [lb_av] 195 [lb_av] KAMRYN ([facility]) Body height 65.5 [in_i] 65.5 [in_i] LITTLEFORK ([facility]) Body temperature 97.6 [degF] 97.6 [degF] [facility] ([facility]) Respiratory rate 16 /min 16 /min [facility] ([facility]) Heart rate 81 /min 81 /min [facility] ([facility]) Diastolic blood pressure 68 mm[Hg] 68 mm[Hg] [facility] ([facility]) Systolic blood pressure 122 mm[Hg] 122 mm[Hg] [facility] ([facility]) Inhaled oxygen concentration 21 % 21 % [facility] ([facility]) Inhaled oxygen flow rate 0 L/min 0 L/min [facility] ([facility]) Oxygen saturation in Arterial blood by Pulse oximetry 95 % 95 % [facility] ([facility]) PhenX - pain, abdominal - type and intensity protocol 5 5 [facility] ([facility]) Body surface area Derived from formula 1.97 m2 1.97 m2 [facility] ([facility]) Body mass index (BMI) [Ratio] 32.0 kg/m2 32.0 k g/m2 [facility] ([facility]) Inhaled oxygen concentration 21 % 21 % CHARTILKER ([facility]) Oxygen saturation in Arterial blood by Pulse oximetry 96 % 96 % CHARTILKER ([facility]) Body weight 194 [lb_av] 194 [lb_av] 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[facility]) Diastolic blood pressure 82 mm[Hg] 82 mm[Hg] 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[facility]) Systolic blood pressure 150 mm[Hg] 150 mm[Hg] C HARTSAMMIEKER ([facility]) Heart rate 109 /min 109 /min 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[facility]) Body temperature 98.3 [degF] 98.3 [degF] CHARTM ANNE MARIE ([facility]) Oxygen saturation in Arterial blood by Pulse oximetry 97 % 97 % KAMRYN ([facility]) PhenX - pain, abdominal - type and intensity protocol 0 0 KAMRYN ([facility]) Body temperature 97.5 [degF] 97.5 [degF] GREENW ([facility]) Respiratory rate 18 /min 18 /min KAMRYN ([facility]) Heart rate 73 /min 73 /min KAMRYN ([facility]) Diastolic blood pressure 74 mm[Hg] 74 mm[Hg] [facility] ([facility]) Systolic blood pressure 132 mm[Hg] 132 mm[Hg] [facility] ([facility]) Patient Treatment Plan of Care Planned Activity Planned Date Details Description Data Source (s) OneTouch Ultra In Vitro Strip 02/19/2020 12:00:00 AM EST LITTLEFORK ([facility]) OneTouch Ultra In Vitro Strip 11/03/2019 12:00:00 AM EDT L[facility]LE[facility]K ([facility]) PX Mini Pen Mccrory 31G X 5 MM Miscellaneous 11/03/2019 12:00:00 AM EDT [facility] ([facility]) OneTouch Delica Lancets 33G Miscellaneous 11/03/2019 12:00:00 AM ED T [facility] ([facility]) PX Mini Pen Mccrory 31G X 5 MM Miscellaneous 11/03/2019 12:00:00 AM EDT [facility] ([facility]) Basaglar KwikPen 100 UNIT/ML Subcutaneous Solution Pen -injector 11/03/2019 12:00:00 AM EDT [facility] Basaglar KwikPen 100 UNIT/ML Subcutaneous Solution Pen -injector 10/17/2019 12:00:00 AM EDT [facility]) 3 ML Insulin, Aspart, Human 100 UNT/ML Pen Injector [N ovoLog] 07/21/2019 12:00:00 AM EDT KAMRYN ([facility]) 3 ML Insulin, Aspart, Human 100 UNT/ML Pen Injector [N ovoLog] 06/29/2019 12:00:00 AM EDT KAMRYN ([facility]) PX Mini Pen Mccrory 31G X 5 MM Miscellaneous 06/05/2019 12:00:00 AM EDT KAMRYN ([facility]) Basaglar KwikPen 100 UNIT/ML Subcutaneous Solution Pen -injector 05/02/2019 12:00:00 AM EST KAMRYN ([facility]) OneTouch Ultra Blue In Vitro Strip 04/25/2019 12:00:00 AM EST KAMRYN ([facility]) OneTouch Ultra Blue In Vitro Strip 04/20/2019 12:00:00 AM EST KAMRYN ([facility]) Amoxicillin 875 MG Oral Tablet 04/13/2019 12:00:00 AM EST KAMRYN ([facility]) PX Mini Pen Mccrory 31G X 5 MM Miscellaneous 01/16/2019 12:00:00 AM EDT KAMRYN ([facility]) OneTouch Ultra Blue In Vitro Strip 08/17/2018 12:00:00 AM EDT KAMRYN ([facility]) Basaglar KwikPen 100UNIT/ML Subcutaneous Solution Pen- injector 08/16/2018 12:00:00 AM EDT KAMRYN ([facility]) 3 ML Insulin, Aspart, Human 100 UNT/ML Pen Injector [N ovoLog] 06/07/2018 12:00:00 AM EDT KAMRYN ([facility]) OneTouch Club Lancets Fine Pt Miscellaneous 06/09/2017 12:00:00 AM EDT KAMRYN ([facility]) Insulin Syringe 31G X 5/16"1 ML Miscellaneous 05/24/2017 12:00:00 A M EST KAMRYN ([facility])
--- NOTE | 2020-04-24 17:50 | REPVR ---
PROCEDURE INFORMATION: Exam: US Abdomen, Limited; Right Upper Quadrant Exam date and time: 04/24/2020 5:32 PM Age: 49 years old Clinical indication: Abdominal pain; Flank; Right upper quadrant (ruq); Additional info: Ruq pain; Elevated enzymes TECHNIQUE: Imaging protocol: US abdomen. Real time ultrasound with image documentation. Limited exam focused on the right upper quadrant. COMPARISON: No relevant prior studies available. FINDINGS: Liver: Unremarkable. Gallbladder: Cholelithiasis without gallbladder wall thickening or pericholecystic fluid. Negative sonographic Ovalles's sign, as per the editor managing newspaper. Common bile duct: No stones. No ductal dilatation. Pancreas: Suboptimally visualized. Right kidney: No mass. No definite stones. No hydronephrosis. IMPRESSION: Cholelithiasis without sonographic evidence of acute cholecystitis. Electronically signed by: Juan Ramon Mohamud On 04/24/2020 17:50:08 PM
[2020-04-24 18:30] VITALS: BP 151/74
== END 2020-04-24 18:54 | disposition home or self-care (01) ==
LOC: M ED 13:48 → EDBD 13:48 → M ED 18:54
DX: E10.65 Type 1 diabetes mellitus with hyperglycemia (principal); K80.20 Calculus of gallbladder without cholecystitis without obstruction; I25.2 Old myocardial infarction; Z95.5 Presence of coronary angioplasty implant and graft; Z79.82 Long term (current) use of aspirin; Z79.899 Other long term (current) drug therapy; Z88.8 Allergy status to other drugs, medicaments and biological substances

== ENCOUNTER → 2021-12-25 | Outpatient (REF) | payer MEDICARE, MEDICAID ==
[~2021-12-25] MED LIST changes: +ASPI-523 PO; +ATOR80TA59 PO; +BRIL90TA PO; +METO1TAB7 PO
[2021-12-25 17:42] LABS: APPEARANCE, URINE MANUAL CLOUDY (CLEAR); COLOR, URINE MANUAL YELLOW (YELLOW); GLUCOSE, URINE (UA) MANUAL TRACE(50 MG/DL) mg/dL (NEGATIVE); KETONE, URINE MANUAL NEGATIVE (NEGATIVE); PROTEIN, URINE MANUAL 1+ mg/dL (NEGATIVE); UROBILINOGEN, URINE MANUAL NORMAL (NORMAL)
[2021-12-25 17:43] LABS: BILIRUBIN, URINE MANUAL NEGATIVE (NEGATIVE); BLOOD URINE MANUAL POSITIVE (NEGATIVE); LEUKOCYTE ESTERASE, URINE MAN POSITIVE (NEGATIVE); NITRITE, URINE MANUAL NEGATIVE (NEGATIVE)
[2021-12-25 17:59] LABS: BACTERIA, URINE MOD AMOUNT; HYALINE CAST, URINE NONE SEEN /lpf (0-1); SQUAMOUS EPITHELIAL CELL URINE LARGE AMOUNT /hpf (SMALL AMT); WBC, URINE 30-40 /hpf (0-3)
[2021-12-25 18:00] LABS: MUCUS, URINE SMALL AMOUNT (NEGATIVE)
== END ==
LOC: M SMT 17:02
PROVIDERS: ATTEND Urology
DX: Z87.448 Personal history of other diseases of urinary system (principal)

== ENCOUNTER → 2022-01-05 | Outpatient (REF) | payer MEDICARE, MEDICAID ==
[2022-01-05 17:51] LABS: APPEARANCE, URINE MANUAL HAZY (CLEAR); COLOR, URINE MANUAL YELLOW (YELLOW)
[2022-01-05 17:53] LABS: BILIRUBIN, URINE MANUAL NEGATIVE (NEGATIVE); BLOOD URINE MANUAL NEGATIVE (NEGATIVE); GLUCOSE, URINE (UA) MANUAL NEGATIVE (NEGATIVE); KETONE, URINE MANUAL NEGATIVE (NEGATIVE); LEUKOCYTE ESTERASE, URINE MAN POSITIVE (NEGATIVE); NITRITE, URINE MANUAL NEGATIVE (NEGATIVE); PROTEIN, URINE MANUAL NEGATIVE (NEGATIVE); SPECIFIC GRAVITY,URINE MANUAL 1.015 (1.002-1.035); UROBILINOGEN, URINE MANUAL NORMAL (NORMAL)
[2022-01-05 18:40] LABS: SQUAMOUS EPITHELIAL CELL URINE SMALL AMOUNT /hpf (SMALL AMT)
[2022-01-05 18:41] LABS: WBC, URINE 20-30 /hpf (0-3)
[2022-01-05 18:43] LABS: BACTERIA, URINE SMALL AMOUNT; RBC, URINE NONE SEEN /hpf (0-3); YEAST, URINE SMALL AMOUNT
== END ==
LOC: M SMT 16:46
PROVIDERS: ATTEND Urology
DX: R30.0 Dysuria (principal)

== ENCOUNTER → 2022-04-08 | Outpatient (CLI) | payer MEDICARE, MEDICAID ==
[~2022-04-08] MED LIST changes: +ISOVUE-370 76% 100ML VIAL As Ordered ONE
== END ==
LOC: M RAD 13:37
PROVIDERS: ATTEND Otolaryngology
DX: R13.10 Dysphagia, unspecified (principal)
CPT/HCPCS: 70491; Q9967

== ENCOUNTER → 2022-04-17 | Outpatient (CLI) | payer MEDICARE, MEDICAID ==
[~2022-04-17] MED LIST changes: +E-Z-GAS II EFFERVESCENT PACKET (SODIUM BICARB./CITRIC ACID/SIMETHICONE) As Ordered ONE; +E-Z-HD 98% w/w 340GM SUSP BTL As Ordered ONE; +E-Z-PAQUE 96% w/w SUSP 176GM BTL As Ordered ONE; -ISOVUE-370 76% 100ML VIAL As Ordered ONE
== END ==
LOC: M RAD 08:21
PROVIDERS: ATTEND Otolaryngology
DX: R13.10 Dysphagia, unspecified (principal); K21.9 Gastro-esophageal reflux disease without esophagitis; K80.20 Calculus of gallbladder without cholecystitis without obstruction

== ENCOUNTER → 2022-04-22 | Outpatient (REF) | payer MEDICARE, MEDICAID ==
[~2022-04-22] MED LIST changes: -E-Z-GAS II EFFERVESCENT PACKET (SODIUM BICARB./CITRIC ACID/SIMETHICONE) As Ordered ONE; -E-Z-HD 98% w/w 340GM SUSP BTL As Ordered ONE; -E-Z-PAQUE 96% w/w SUSP 176GM BTL As Ordered ONE
[2022-04-22 17:48] LABS: APPEARANCE, URINE MANUAL CLEAR (CLEAR); COLOR, URINE MANUAL YELLOW (YELLOW); PROTEIN, URINE MANUAL TRACE mg/dL (NEGATIVE)
[2022-04-22 17:49] LABS: BILIRUBIN, URINE MANUAL NEGATIVE (NEGATIVE); BLOOD URINE MANUAL TRACE (NEGATIVE); GLUCOSE, URINE (UA) MANUAL 4+(1000 MG/DL) mg/dL (NEGATIVE); KETONE, URINE MANUAL NEGATIVE (NEGATIVE); LEUKOCYTE ESTERASE, URINE MAN TRACE (NEGATIVE); NITRITE, URINE MANUAL NEGATIVE (NEGATIVE); UROBILINOGEN, URINE MANUAL NORMAL (NORMAL)
[2022-04-22 18:27] LABS: RBC, URINE 0-1 /hpf (0-3); SQUAMOUS EPITHELIAL CELL URINE MOD AMOUNT /hpf (SMALL AMT); WBC, URINE 40-50 /hpf (0-3)
[2022-04-22 18:28] LABS: BACTERIA, URINE LARGE AMOUNT
== END ==
LOC: M SMT 16:43
PROVIDERS: ATTEND Urology
DX: R30.0 Dysuria (principal)

== ENCOUNTER → 2022-05-06 | Outpatient (CLI) | payer MEDICARE, MEDICAID | LOC: M RAD 15:30 | PROVIDERS: ATTEND Urology | DX: R30.0 Dysuria (principal) ==